=== PATIENT | male | born 1955 | race African-American/Black ===

== ENCOUNTER 2016-09-29 07:17 | Observation (INO) | payer OTHER ==
[~2016-09-29] VITALS: Ht 172.7 cm; Wt 104.3 kg
[2016-09-29] VITALS (7 sets, daily range): BP systolic 105–134; BP diastolic 56–75
[2016-09-29] MEDS ORDERED: Albuterol ud Inhalation ONE (07:18)
[2016-09-29] MEDS ORDERED: Ipratropium 0.02% Inh Soln 2.5ml UD HHN ONE (07:30)
[2016-09-29] MEDS ORDERED: Solu-MEDROL 125mg Inj IVP ONE (07:30)
[2016-09-29] MEDS ORDERED: Albuterol ud Inhalation HHN ONE (07:30)
[2016-09-29 07:45] LABS: BASOPHILS % (AUTO) 2.6 % (0.0-2.0); LYMPHOCYTES % (AUTO) 7.2 % (20.0-45.0); MEAN CORPUSCULAR HEMOGLOBIN 28.6 PG (27.0-31.0); MEAN CORPUSCULAR HGB CONC 31.6 G/DL (32.0-36.0); MEAN CORPUSCULAR VOLUME 90 FL (80-99); MEAN PLATELET VOLUME 5.9 FL (6.5-10.1); MONOCYTES % (AUTO) 5.8 % (1.0-10.0); NEUTROPHILS % (AUTO) 83.5 % (45.0-75.0); PLATELET COUNT 306 K/UL (150-450); RED BLOOD COUNT 4.22 M/UL (4.70-6.10); WHITE BLOOD COUNT 13.1 K/UL (4.8-10.8)
[2016-09-29] MEDS ORDERED: CARDIZEM30 M1 PO (07:49)
[2016-09-29] MEDS ORDERED: ZOFRAN4 M3 ORAL (07:49)
[2016-09-29] MEDS ORDERED: GUAIFENESI100 MG/5 M ORAL (07:49)
[2016-09-29] MEDS ORDERED: ACETAMINOP500 MG/51 ORAL (07:49)
[2016-09-29] MEDS ORDERED: FUROSEMIDE40 MG ORAL (07:49)
[2016-09-29] MEDS ORDERED: BUDESONIDE0.5 GM PO (07:49)
[2016-09-29] MEDS ORDERED: DUONEB 0.5-3(2.53 ML HHN (07:49)
[2016-09-29] MEDS ORDERED: LOVENOX10 MG SUBQ (07:49)
[2016-09-29] MEDS ORDERED: LEVAQUIN500 MG ORAL (07:49)
[2016-09-29] MEDS ORDERED: NORCO1 E1 ORAL (07:49)
[2016-09-29] MEDS ORDERED: CATAPRES0.1 MG ORAL (07:49)
[2016-09-29] MEDS ORDERED: PREDNISONE20 MG ORAL (07:49)
[2016-09-29 08:00] LABS: ALANINE AMINOTRANSFERASE 13 U/L (3-41); ALBUMIN/GLOBULIN RATIO 1.9 (1.0-2.7); ANION GAP 9 (5-15); ASPARTATE AMINO TRANSFERASE 15 U/L (5-40); CALCIUM 9.7 mg/dL (8.6-10.2); CARBON DIOXIDE 36 mEQ/L (20-30); CHLORIDE 99 mEQ/L (98-107); CREATININE 0.8 mg/dL (0.7-1.2); GLOMERULAR FILTRATION RATE > 60 mL/min (>60); HEMOLYSIS 3; POTASSIUM 5.1 mEQ/L (3.4-4.9); SODIUM 144 mEQ/L (135-145); TOTAL PROTEIN 6.4 g/dL (6.6-8.7)
[2016-09-29 08:03] LABS: TROPONIN I < 0.30 ng/mL (<=0.30)
--- NOTE | 2016-09-29 08:34 | Emergency Room Report ---
History of Present Illness General Chief Complaint: Dyspnea/Respdistress Source: EMS Present Illness HPI 61-year-old male presents to ED for evaluation of shortness of breath. States symptoms started a few hours prior to arrival. Patient was just checked into [facility] yesterday after being discharged with symptoms no hospital for treatment of COPD/CHF. Patient states he did smoke a cigarette last night. Upon arrival EMS stated that patient was very short of breath, chest tightness, hypertensive. Patient was given nitroglycerin, started on breathing treatments. Patient denies any fevers or chills. Denies chest pain. Denies nausea or vomiting. No other aggravating or relieving factors. Denies any other associated symptoms Allergies: Coded Allergies: LISINOPRIL (Verified Allergy, Unknown, 09/29/16) Patient History Past Medical History: none Past Surgical History: none Pertinent Family History: none Social History: Denies: alcohol use, drug use, smoking Immunizations: UTD Reviewed Nursing Documentation: PMH: Agreed, PSxH: Agreed Nursing Documentation-PMH Hx Cardiac Problems: Yes - CHF Hx Hypertension: Yes Hx Asthma: Yes Hx COPD: Yes Review of Systems All Other Systems: negative except mentioned in HPI Physical Exam Vital Signs Date Time Temp Pulse Resp B/P Pulse Ox O2 Delivery O2 Flow Rate FiO2 09/29/16 07:13 97.9 144 28 100 Non-Rebreather 09/29/16 07:20 15.0 09/29/16 07:36 105/56 100 Sp02 EP Interpretation: reviewed, normal General Appearance: no apparent distress, alert, GCS 15, non-toxic, obese Head: normocephalic, atraumatic Eyes: bilateral eye PERRL, bilateral eye normal inspection ENT: hearing grossly normal, normal pharynx, no angioedema, normal voice Neck: full range of motion, supple/symm/no masses Respiratory: chest non-tender, normal breath sounds, decreased breath sounds, crackles, speaking full sentences, wheezing Cardiovascular #1: no edema, tachycardia Cardiovascular #2: 2+ carotid (R), 2+ carotid (L), 2+ radial (R), 2+ radial (L) , 2+ dorsalis pedis (R), 2+ dorsalis pedis (L) Gastrointestinal: normal bowel sounds, non tender, soft, non-distended, no guarding, no rebound Rectal: deferred Genitourinary: normal inspection, no CVA tenderness Musculoskeletal: back normal, gait/station normal, normal range of motion, non- tender Neurologic: alert, oriented x3, responsive, motor strength/tone normal, sensory intact, speech normal Psychiatric: judgement/insight normal, memory normal, mood/affect normal, no suicidal/homicidal ideation Reflexes: 3+ bicep (R), 3+ bicep (L), 3+ tricep (R), 3+ tricep (L), 3+ knee (R) , 3+ knee (L) Skin: normal color, no rash, warm/dry, well hydrated Lymphatic: no adenopathy Procedures Critical Care Time Critical Care Time i. I feel this is a highly complex case requiring extensive working including EKG/Rhythm strip, Xray/CT/US, Blood/urine lab work, repeat exams while in ED, and administration of strong opiates/narcotics for pain control, admission to hospital or close patient follow up. Total time: 30 min bedside evaluation and treatment excludes procedures (EKG). Reason for critical care: Respiratory distress, hypoxic, tachycardic, hypertensive Possible complications: hypotension, hypertension, GA, shock, arrhythmias, metabolic acidosis, end organ damage, respiratory failure. Interventions: BiPAP, nebs, Solu-Medrol, EKG, chest x-ray, abx Course: Patient brought in for respiratory distress. History of CHF and COPD. Started on BiPAP and nebulizer treatment. Given Solu-Medrol. Labs show leukocytosis. Troponins negative. Chest x-ray shows atelectasis bilateral effusions. Improving on BiPAP. Antibiotics given. Consultations: nursing staff, EMS, family Performed by: Dr Brown Tolerated well condition = critical j. because of unstable vital signs this patient had a condition that could potentially threaten life or limb. I feel this is a critical patient who required my full attention while patient was considered critical. Total Critical Care Time excluding procedures was greater than 35 minutes Medical Decision Making Diagnostic Impression: Primary Impression: CHF exacerbation Qualified Codes: I50.9 - Heart failure, unspecified Additional Impression: COPD exacerbation ER Course Hospital Course 61-year-old M presenting to ED with SOB. h/o COPD Differential diagnoses include: Pneumonia, CHF exacerbation, pneumothorax, fluid overload Clinical course Patient placed on stretcher. On cafeteria monitor with stable vitals. After initial history and physical, I ordered nebulizer treatments, BIPAP. I ordered labs, IV fluids, EKG, chest x-ray, blood cultures, UA. Labs - noted leukocytosis, hemoglobin/hematocrit stable, electrolytes okay, lactate okay, troponins negative CXR -cardiomegaly. atelectasis/effusion ABG shows PCO2 in the 60s. We attempted to wean patient of BiPAP patient was not able to tolerate. Patient will remain on BiPAP abx given. per insurance patient admits to [facility], but Dr Ramirez is covering for Dr Flowers. Case discussed with Dr. Ramirez and he agreed to the patient to his service for further care and support I feel this is a highly complex case requiring extensive working including EKG/ Rhythm strip, Xray/CT/US, Blood/urine lab work, repeat exams while in ED, and administration of strong opiates/narcotics for pain control, admission to hospital or close patient follow up. Diagnosis - COPD exacerbation, CHF exacerbation Patient admitted to [facility] in serious condition Labs Test 09/29/16 07:25 White Blood Count 13.1 K/UL (4.8-10.8) Red Blood Count 4.22 M/UL (4.70-6.10) Hemoglobin 12.1 G/DL (14.2-18.0) Hematocrit 38.2 % (42.0-52.0) Mean Corpuscular Volume 90 FL (80-99) Mean Corpuscular Hemoglobin 28.6 PG (27.0-31.0) Mean Corpuscular Hemoglobin Concent 31.6 G/DL (32.0-36.0) Red Cell Distribution Width 15.0 % (11.6-14.8) Platelet Count 306 K/UL (150-450) Mean Platelet Volume 5.9 FL (6.5-10.1) Neutrophils (%) (Auto) 83.5 % (45.0-75.0) Lymphocytes (%) (Auto) 7.2 % (20.0-45.0) Monocytes (%) (Auto) 5.8 % (1.0-10.0) Eosinophils (%) (Auto) 1.0 % (0.0-3.0) Basophils (%) (Auto) 2.6 % (0.0-2.0) Sodium Level 144 mEQ/L (135-145) Potassium Level 5.1 mEQ/L (3.4-4.9) Chloride Level 99 mEQ/L (98-107) Carbon Dioxide Level 36 mEQ/L (20-30) Anion Gap 9 (5-15) Blood Urea Nitrogen 13 mg/dL (7-23) Creatinine 0.8 mg/dL (0.7-1.2) Estimat Glomerular Filtration Rate > 60 mL/min (>60) Glucose Level 161 mg/dL (74-106) Lactic Acid Level 1.00 mmol/L (0.66-2.22) Calcium Level 9.7 mg/dL (8.6-10.2) Total Bilirubin 0.4 mg/dL (0.0-1.2) Aspartate Amino Transf (AST/SGOT) 15 U/L (5-40) Alanine Aminotransferase (ALT/SGPT) 13 U/L (3-41) Alkaline Phosphatase 73 U/L (40-129) Total Creatine Kinase 80 U/L (38-174) Creatine Kinase MB 3.0 ng/mL (< 6.7) Creatine Kinase MB Relative Index 3.7 Troponin I < 0.30 ng/mL (<=0.30) Pro-B-Type Natriuretic Peptide 117 pg/mL (0-125) Total Protein 6.4 g/dL (6.6-8.7) Albumin 4.2 g/dL (3.5-5.2) Globulin 2.2 g/dL Albumin/Globulin Ratio 1.9 (1.0-2.7) EKG Diagnostic Results Rate: tachycardiac Rhythm: NSR ST Segments: no acute changes ASA given to the pt in ED: No Rhythm Strip Diag. Results EP Interpretation: yes Rhythm: NSR, no PVC's, no ectopy Chest X-Ray Diagnostic Results EP Interpretation: Yes Findings: no pneumothorax, no acute cardiopulmonary disease, other - cardiomegaly. effusion,atelectasis b/l Lower lung cazares Number of Views: 1 Last Vital Signs Date Time Temp Pulse Resp B/P Pulse Ox O2 Delivery O2 Flow Rate FiO2 09/29/16 07:36 129 23 Bi-pap 100 09/29/16 07:36 105/56 95 09/29/16 07:20 15.0 09/29/16 07:13 97.9 Status: improved Disposition: ADMITTED INPATIENT Condition: Serious Referrals: [facility],REFERRING (PCP) VAIBHAV BROWN M.D. Sep 29, 2016 08:33
[2016-09-29] MEDS ORDERED: Lidocaine HCl 2% Jelly 5ml Tube TOPIC ONE (08:45)
[2016-09-29 09:11] LABS: ABG ALLEN TEST POSITIVE; ABG PCO2 60.1 mmHg (35.0-45.0)
[2016-09-29 09:52] LABS: APPEARANCE,URINE CLEAR; KETONES,URINE 1+ (NEGATIVE); LEUKOCYTE ESTERASE ,URINE 1+ (NEGATIVE); NITRITE,URINE NEGATIVE (NEGATIVE); PH,URINE 7 (4.5-8.0); PROTEIN,URINE 1+ (NEGATIVE); UROBILINOGEN,URINE NORMAL MG/DL (0.0-1.0)
[2016-09-29] MEDS: Albuterol ud Inhalation HHN SCH ×3 (10:04→11:15)
[2016-09-29] MEDS: Ipratropium 0.02% Inh Soln 2.5ml UD HHN SCH ×3 (10:04→11:15)
[2016-09-29 10:13] LABS: BACTERIA,URINE FEW /HPF; MUCUS,URINE FEW /LPF (NONE/OCC); RBC,URINE 0-2 /HPF (0 - 0); SQUAMOUS EPITHELIAL CELL,UR OCCASIONAL /LPF (NONE/OCC)
[2016-09-29] MEDS ORDERED: DuoNeb 0.5-3(2.5)mg/3ml neb HHN PRN ×2 (13:30→21:30)
[2016-09-29] MEDS ORDERED: Docusate 100mg cap ORAL PRN (13:30)
--- NOTE | 2016-09-29 13:39 | Consultation ---
Consult Note Assessment/Plan DICT # [id number] IONA CAMARENA M.D. Sep 29, 2016 13:39
[2016-09-29 15:37] LABS: TROPONIN I < 0.30 ng/mL (<=0.30)
[2016-09-29] MEDS ORDERED: Furosemide 40mg tab ORAL SCH (18:00)
[2016-09-29] MEDS ORDERED: DuoNeb 0.5-3(2.5)mg/3ml neb HHN SCH (19:00)
[2016-09-29] MEDS: DuoNeb 0.5-3(2.5)mg/3ml neb HHN SCH (19:00)
[2016-09-29] MEDS: Norco 5mg/325mg tab ORAL PRN (20:28)
[2016-09-29] MEDS: Enoxaparin 30mg Inj SUBQ SCH ×2 (21:00→22:18)
[2016-09-29] MEDS ORDERED: Enoxaparin 30mg Inj SUBQ SCH (21:00)
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
[2016-09-29] MEDS: Budesonide HHN 0.25mg/2ml ud HHN SCH (22:00)
[2016-09-29] MEDS ORDERED: Budesonide HHN 0.25mg/2ml ud HHN SCH (22:00)
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
[2016-09-30] VITALS: BP 139/68
[2016-09-30] MEDS: Norco 5mg/325mg tab ORAL PRN ×4 (00:29→13:12)
[2016-09-30] MEDS: DuoNeb 0.5-3(2.5)mg/3ml neb HHN SCH ×4 (01:44→19:53)
[2016-09-30 04:00] VITALS: BP 122/69
[2016-09-30 08:19] LABS: BASOPHILS % (AUTO) 0.7 % (0.0-2.0); LYMPHOCYTES % (AUTO) 6.4 % (20.0-45.0); MEAN CORPUSCULAR HEMOGLOBIN 28.3 PG (27.0-31.0); MEAN CORPUSCULAR HGB CONC 33.3 G/DL (32.0-36.0); MEAN CORPUSCULAR VOLUME 85 FL (80-99); MEAN PLATELET VOLUME 5.8 FL (6.5-10.1); MONOCYTES % (AUTO) 8.8 % (1.0-10.0); NEUTROPHILS % (AUTO) 84.2 % (45.0-75.0); PLATELET COUNT 269 K/UL (150-450); RED BLOOD COUNT 3.94 M/UL (4.70-6.10); RED CELL DISTRIBUTION WIDTH 14.5 % (11.6-14.8); WHITE BLOOD COUNT 11.5 K/UL (4.8-10.8)
[2016-09-30 08:33] LABS: ANION GAP 13 (5-15); CALCIUM 9.7 mg/dL (8.6-10.2); CARBON DIOXIDE 31 mEQ/L (20-30); CHLORIDE 97 mEQ/L (98-107); CREATININE 0.9 mg/dL (0.7-1.2); GLOMERULAR FILTRATION RATE > 60 mL/min (>60); HEMOLYSIS 3; POTASSIUM 4.1 mEQ/L (3.4-4.9); SODIUM 141 mEQ/L (135-145)
[2016-09-30] MEDS: Furosemide 40mg tab ORAL SCH ×2 (08:34→18:00)
[2016-09-30] MEDS: Enoxaparin 30mg Inj SUBQ SCH (08:35)
[2016-09-30 08:41] VITALS: BP 125/64
[2016-09-30] MEDS ORDERED: PredniSONE 20mg tab ORAL SCH ×2 (09:00)
[2016-09-30] MEDS ORDERED: Docusate 100mg cap ORAL PRN (09:00)
[2016-09-30] MEDS ORDERED: Furosemide 40mg tab ORAL SCH (09:00)
[2016-09-30 12:53] VITALS: BP 129/76
[2016-09-30] MEDS: Budesonide HHN 0.25mg/2ml ud HHN SCH ×2 (13:37→20:06)
[2016-09-30 16:00] VITALS: BP 121/76
--- NOTE | 2016-09-30 19:06 | Pulmonology Progress Note ---
Assessment/Plan Problems: (1) Tobacco abuse (2) Morbid obesity (3) MARTINA on CPAP (4) COPD exacerbation (5) CHF exacerbation Assessment/Plan ASSESSMENT: The patient is a 61-year-old obese male with a history of tobacco abuse, chronic obstructive pulmonary disease, congestive heart failure, obstructive sleep apnea, noncompliant with CPAP, and hypertension, presenting from care home with shortness of breath one day after being discharged from an outside hospital likely secondary to the repeat exacerbation of his underlying obstructive lung disease. He does have a history of congestive heart failure, but clinically does not appear to be in failure at this time. PROBLEM LIST: 1. Chronic obstructive pulmonary disease with acute exacerbation. 2. Congestive heart failure without evidence of decompensated heart failure. 3. Pulmonary HTN, ? 2/2 L sided DD, MARTINA and ? VTE 4. Obstructive sleep apnea, noncompliant with CPAP. 5. Continued tobacco use. 6. Hypertension. 7. Questionable recent history of video-assisted thoracoscopic surgery versus mediastinoscopy at an outside hospital for evaluation of abnormal lymph node; per patient, workup was negative. 8. Elevated D-dimer TREATMENT PLAN: 1. Optimize pulmonary hygiene and mobilize as tolerated. 2. Continue rueka-iog-lbqki and p.r.n. DuoNebs. 3. Prednisone 60 mg p.o. daily (D2/5). 4. Levaquin IV (D2), can D/C on PO to complete 7 day course. 5. Follow up sputum culture and respiratory panel. 6. BiPAP at bedtime and p.r.n. 7. Monitor volumes; continue p.o. Lasix for now. 8. Patient declines Duplex and VQ, he is already on treatment dose of A/C but is unsure whether he had a PE/DVT before 9.D/W PMD, will get Duplex at [facility] 10. Heparin subcutaneous. 11. Aspiration precautions. Subjective Allergies: Coded Allergies: LISINOPRIL (Verified Allergy, Unknown, 09/29/16) Subjective AFVSS, stable on 2L O2 SOB at baseline, no cough, no wheezing, no F/C, no CP, no hemoptysis, has been OOB Objective Last 24 Hour Vital Signs Date Time Temp Pulse Resp B/P Pulse Ox O2 Delivery O2 Flow Rate FiO2 09/30/16 18:00 77 121/76 09/30/16 16:00 97.2 77 21 121/76 98 Nasal Cannula 2.0 09/30/16 13:49 96 20 99 Nasal Cannula 28 09/30/16 13:38 28 09/30/16 13:38 70 16 100 Nasal Cannula 2.0 28 09/30/16 12:53 97.0 75 18 129/76 98 Nasal Cannula 3.0 09/30/16 12:00 97 09/30/16 11:29 75 129/76 09/30/16 08:41 97.5 77 18 125/64 99 Bi-pap 09/30/16 08:00 72 09/30/16 07:59 95 18 99 Nasal Cannula 28 09/30/16 07:50 100 Nasal Cannula 2.0 28 09/30/16 07:50 Nasal Cannula 2.0 28 09/30/16 07:50 28 09/30/16 07:50 70 16 100 Nasal Cannula 2.0 28 09/30/16 05:33 73 128/66 09/30/16 04:00 97.0 88 20 122/69 96 Nasal Cannula 2.0 09/30/16 04:00 88 09/30/16 03:29 89 22 97 Facial 35 09/30/16 01:30 97 18 99 Bi-pap 35 09/30/16 01:20 35 09/30/16 01:20 85 18 97 Bi-pap 35 09/30/16 01:20 85 18 98 Facial 35 09/30/16 00:00 85 09/30/16 00:00 97.7 85 16 139/68 96 Bi-pap 09/29/16 23:49 85 139/68 09/29/16 20:00 102 09/29/16 20:00 96.9 97 17 106/65 97 Room Air 09/29/16 19:00 98 Nasal Cannula 2.0 28 09/29/16 19:00 Nasal Cannula 09/29/16 19:00 92 18 98 Nasal Cannula 2.0 28 09/29/16 19:00 Nasal Cannula 2.0 28 Intake and Output 09/29/16 09/30/16 19:00 07:00 Intake Total 1150 ml 600 ml Output Total 200 ml 1000 ml Balance 950 ml -400 ml Intake Oral 500 ml 600 ml IV Total 650 ml Output Urine Total 200 ml 1000 ml # Voids 3 General Appearance: no acute distress, other - morbidly obese male HEENT: normocephalic, atraumatic, mucous membranes moist, other - MP4 Respiratory/Chest: lungs clear - but distant and decreased @ bases, no respiratory distress, no accessory muscle use Cardiovascular: normal peripheral pulses, normal rate, regular rhythm Abdomen: normal bowel sounds, soft, non tender, no organomegaly, non distended Extremities: no cyanosis, no clubbing, other - trace edema Microbiology Date/Time Source Procedure Growth Status 09/29/16 16:50 Sputum Induced Gram Stain - Final Resulted 09/29/16 16:50 Sputum Induced Sputum Culture Pending Resulted Laboratory Tests 09/30/16 07:25: White Blood Count 11.5H, Red Blood Count 3.94L, Hemoglobin 11.2L, Hematocrit 33.5L, Mean Corpuscular Volume 85, Mean Corpuscular Hemoglobin 28.3, Mean Corpuscular Hemoglobin Concent 33.3, Red Cell Distribution Width 14.5, Platelet Count 269, Mean Platelet Volume 5.8L, Neutrophils (%) (Auto) 84.2H, Lymphocytes (%) (Auto) 6.4L, Monocytes (%) (Auto) 8.8, Eosinophils (%) (Auto) 0.0, Basophils (%) (Auto) 0.7, Sodium Level 141, Potassium Level 4.1, Chloride Level 97L, Carbon Dioxide Level 31H, Anion Gap 13, Blood Urea Nitrogen 15, Creatinine 0.9, Estimat Glomerular Filtration Rate > 60, Glucose Level 171H, Calcium Level 9.7 Current Medications Medications (Trade) Dose Ordered Sig/Pascale Route PRN Reason Start Time Stop Time Status Last Admin Dose Admin Acetaminophen (Tylenol) 650 mg Q4H PRN ORAL Mild Pain/Temp > 100.5 09/29/16 21:30 10/29/16 21:29 Acetaminophen/ Hydrocodone Bitart ([place] 5/325) 1 tab Q4H PRN ORAL Moderate Pain (Pain Scale 4-6) 09/29/16 20:15 10/06/16 20:14 09/30/16 13:12 Albuterol/ Ipratropium (DuoNeb 0.5-3(2.5)mg/3ml) 3 ml Q4H PRN HHN Shortness of Breath 09/29/16 21:30 10/04/16 21:29 Albuterol/ Ipratropium (DuoNeb 0.5-3(2.5)mg/3ml) 3 ml Q6HRT HHN 09/29/16 19:00 10/04/16 18:59 09/30/16 13:37 Budesonide (Pulmicort) 0.25 mg Q12HRT HHN 09/29/16 22:00 10/29/16 21:59 09/30/16 13:37 Clonidine HCl (Catapres) 0.1 mg Q4H PRN ORAL SBP>160 09/29/16 21:30 10/29/16 21:29 Diltiazem HCl (Cardizem) 30 mg EVERY 6 HOURS ORAL 09/30/16 00:00 10/30/16 00:00 09/30/16 18:00 Docusate Sodium (Colace) 100 mg TID PRN ORAL Constipation 09/30/16 09:00 10/30/16 08:59 Enoxaparin Sodium (Lovenox) 30 mg EVERY 12 HOURS SUBQ 09/29/16 21:00 10/29/16 20:59 Furosemide (Lasix) 40 mg BID ORAL 09/30/16 09:00 10/30/16 08:59 09/30/16 18:00 Levofloxacin (Levaquin 750mg/ D5W) 150 ml @ 100 mls/hr Q24H IVPB 09/30/16 08:00 10/07/16 07:59 09/30/16 08:00 Ondansetron HCl (Zofran) 4 mg Q6H PRN IVP Nausea & Vomiting 09/29/16 19:30 10/29/16 19:29 Prednisone (predniSONE) 60 mg DAILY ORAL 09/30/16 09:00 10/30/16 08:59 09/30/16 08:34 IONA CAMARENA M.D. Sep 30, 2016 19:06
[2016-09-30] MEDS ORDERED: FUROSEMIDE40 MG ORAL (19:08)
[2016-09-30] MEDS ORDERED: VENTOLIN HFA18 GM INH (19:08)
[2016-09-30] MEDS ORDERED: XARELTO20 MG ORAL (19:10)
[2016-09-30 20:00] VITALS: BP 138/81
--- NOTE | 2016-09-30 20:27 | Cardiology Report ---
APPROVED REPORT EKG Measurement Heart [id number] Sinus tachycardia Rightward axis Septal infarct, age undetermined Abnormal ECG
--- NOTE | 2016-09-30 20:43 | Cardiology Report ---
APPROVED REPORT EXAM: Two-dimensional and M-mode echocardiogram with Doppler and color Doppler. INDICATION Atrial Fibrillation M-Mode DIMENSIONS IVSd0.7 (0.7-1.1cm)Left Atrium (MM)4.8 (1.6-4.0cm) LVDd4.5 (3.5-5.6cm)Aortic Root2.8 (2.0-3.7cm) PWd0.7 (0.7-1.1cm)Aortic Cusp Exc.1.9 (1.5-2.0cm) LVDs2.8 (2.5-4.0cm) Technically difficult study due to poor acoustic windows. Normal left ventricular chamber size, systolic function and wall motion. Left ventricular ejection fraction estimated to be 55-60%. No evidence of left ventricular hypertrophy. No evidence of pericardial fat or effusion. Right cardiac chamber sizes are within normal limits. Moderate left atrial enlargement by 2D. Focal aortic valve sclerosis with adequate cusp excursion Thickened mitral valve leaflets with normal excursion. Mild mitral annulus and aortic root calcification. Pulmonic valve not well visualized. Normal tricuspid valve structure. IVC dilated at 3.0cm with no physiologic collapse. RA pressure of 20mmHg. A color flow and spectral Doppler study was performed and revealed: No aortic regurgitation. Mild mitral regurgitation. Left ventricular diastolic dysfunction grade 1. Mild tricuspid regurgitation. Tricuspid systolic velocities suggests peak right ventricular systolic pressure of 54 mmHg Consistent with severe pulmonary hypertension.
--- NOTE | 2016-10-01 15:58 | Discharge Summary ---
DATE OF ADMISSION: 09/29/2016 DATE OF DISCHARGE: 09/30/2016 PERTINENT HISTORY: The patient admitted with shortness of breath, history of COPD, diastolic congestive heart failure, recurrent hospitalization, hypotension, and obesity. PERTINENT PHYSICAL FINDINGS: GENERAL: The patient is alert, in no distress at time my exam. LUNGS: Decreased breath sounds. HEART: Regular rhythm. ABDOMEN: Soft. EXTREMITIES: Trace edema. COURSE IN THE HOSPITAL: The patient was diuresed for CHF, treated with steroids and nebulizer treatment. He had severe pulmonary hypertension. He was continued on anticoagulants, but refused Lovenox. It is presumed he had DVT prior to this and this was discussed with the patient who agreed to take Xarelto in the outpatient setting. The patient on day of discharge had no respiratory distress. His oxygen saturation on two liters was normal. Lungs were clear. Heart, regular rhythm. Extremities, trace edema and he was discharged back to his nursing home home in stable condition. FINAL DIAGNOSES: 1. Chronic obstructive pulmonary disease with acute exacerbation. 2. Acute bronchitis. 3. Congestive heart failure, diastolic acute exacerbation. 4. History of sleep apnea. 5. History of hypertension. 6. Pulmonary hypertension. 7. Obesity. 8. History of homeless situation. DISCHARGE DISPOSITION: He is discharged back to his ECF on a no-added salt diet. DISCHARGE MEDICATIONS: Per the discharge medication list. FOLLOWUP: Follow up by his primary care physician at that facility. Allan Saini M.D. DR: ROMEO JOB#: [id number] CC:
--- NOTE | 2016-10-02 08:29 | Diagnostic Imaging Report ---
Indication: Dyspnea Comparison: None A single view chest radiograph was obtained. Findings: Cardiomediastinal appearance is within normal limits for age. Pulmonary vascularity is appropriate. The diaphragmatic contour is smooth and costophrenic angles are sharp. No pleural effusions are identified. The bones are unremarkable. Impression: No acute findings
== END 2016-09-30 21:23 ==
LOC: EDBD 07:17 → EMR 07:29 → INTOOBSV 10:22 → 2W 10:22 → EDBEDREQ 11:17 → 2E 19:04
DX: J44.0 Chronic obstructive pulmonary disease with (acute) lower respiratory infection (principal); J20.9 Acute bronchitis, unspecified; J44.1 Chronic obstructive pulmonary disease with (acute) exacerbation; F17.210 Nicotine dependence, cigarettes, uncomplicated; I50.33 Acute on chronic diastolic (congestive) heart failure; G47.33 Obstructive sleep apnea (adult) (pediatric); I10 Essential (primary) hypertension; I27.2 Other secondary pulmonary hypertension; E66.9 Obesity, unspecified; Z59.0 Homelessness; Z91.09 Other allergy status, other than to drugs and biological substances
CPT/HCPCS: 36415 ×2; 36600; 71010; 80048; 80053; 81003; 82550; 82553; 82803; 82962; 83605; 83880; 84484; 85025 ×2; 85379; 87040; 87070; 87081 ×2; 87205; 93005; 93306; 94640 ×2; 94660; 94760 ×2; 99291; G0378 ×2; J1650; J1956 ×2; J2930; J7040; J7620

== ENCOUNTER 2018-10-17 01:12 | Inpatient (IN) | payer MEDICARE, OTHER ==
[~2018-10-17] VITALS: Ht 170.2 cm; Wt 80.7 kg
[2018-10-17 01:12] VITALS: BP 135/75
[~2018-10-17 01:12] MED LIST: ACETAMINOP500 MG/51 ORAL; BUDESONIDE0.5 GM PO; CARDIZEM30 M1 PO; CATAPRES0.1 MG ORAL; DUONEB 0.5-3(2.53 ML HHN; FUROSEMIDE40 MG ORAL; GUAIFENESI100 MG/5 M ORAL; LEVAQUIN500 MG ORAL; LOVENOX10 MG SUBQ; NORCO1 E1 ORAL; PREDNISONE20 MG ORAL; VENTOLIN HFA18 GM INH; XARELTO20 MG ORAL; ZOFRAN4 M3 ORAL
[2018-10-17] MEDS ORDERED: Solu-MEDROL 125mg Inj IVP ONE (01:45)
[2018-10-17] MEDS ORDERED: Ipratropium 0.02% Inh Soln 2.5ml UD HHN ONE (01:45)
[2018-10-17] MEDS ORDERED: Albuterol ud Inhalation HHN ONE (01:45)
[2018-10-17 01:52] LABS: BASOPHILS % (AUTO) 1.1 % (0.0-2.0); EOSINOPHILS % (AUTO) 0.5 % (0.0-3.0); HEMATOCRIT 32.8 % (42.0-52.0); HEMOGLOBIN 10.7 G/DL (14.2-18.0); LYMPHOCYTES % (AUTO) 9.2 % (20.0-45.0); MEAN CORPUSCULAR VOLUME 85 FL (80-99); MONOCYTES % (AUTO) 9.9 % (1.0-10.0); NEUTROPHILS % (AUTO) 79.3 % (45.0-75.0); PLATELET COUNT 267 K/UL (150-450); RED BLOOD COUNT 3.88 M/UL (4.70-6.10); RED CELL DISTRIBUTION WIDTH 14.7 % (11.6-14.8); WHITE BLOOD COUNT 10.1 K/UL (4.8-10.8)
[2018-10-17 02:06] LABS: ANION GAP 6 mmol/L (5-15); BLOOD UREA NITROGEN 23 mg/dL (7-18); CALCIUM 8.8 MG/DL (8.5-10.1); CARBON DIOXIDE 29 MMOL/L (21-32); CHLORIDE 104 MMOL/L (98-107); CREATININE 1.1 MG/DL (0.55-1.30); POTASSIUM 4.6 MMOL/L (3.5-5.1); SODIUM 139 MMOL/L (136-145)
[2018-10-17 02:20] LABS: ALANINE AMINOTRANSFERASE 27 U/L (12-78); ALBUMIN 3.2 G/DL (3.4-5.0); ALBUMIN/GLOBULIN RATIO 0.9 (1.0-2.7); ALKALINE PHOSPHATASE 87 U/L (46-116); ASPARTATE AMINO TRANSFERASE 31 U/L (15-37); BILIRUBIN,TOTAL 0.3 MG/DL (0.2-1.0); CKMB 1.3 NG/ML (0.0-3.6); CREATINE KINASE 95 U/L (26-308)
--- NOTE | 2018-10-17 02:39 | Emergency Room Report ---
History of Present Illness General Chief Complaint: Dyspnea/Respdistress Source: Patient, EMS Present Illness HPI This is a 63-year-old male with a history of COPD and CHF. Continue to smoke. He presents with chief complaint of increasing shortness of breath and respiratory distress. Onset for a week now. Worse in the last couple hours. He called 911 because he could not breathe. Per EMS he was hypoxic and was in rest or distress. He was given BiPAP and breathing treatment and sent here. Patient said he fell better with oxygen. Jose Manuel symptom in the past. No nausea no vomiting. No fever or chills. Cough is nonproductive in nature. A chest tightness secondary to respiratory problem. Allergies: Coded Allergies: LISINOPRIL (Verified Allergy, Unknown, 09/29/16) Patient History Past Medical History: see triage record, old chart reviewed, HTN, CHF, COPD Past Surgical History: none Pertinent Family History: none Social History: Reports: smoking Immunizations: other Reviewed Nursing Documentation: PMH: Agreed; PSxH: Agreed Nursing Documentation-PMH Hx Cardiac Problems: Yes - CHF Hx Hypertension: Yes Hx Asthma: Yes Hx COPD: Yes Hx Cancer: No Hx Gastrointestinal Problems: No Hx Neurological Problems: No Review of Systems Eye: Denies: eye pain, blurred vision ENT: Denies: ear pain, nose congestion, throat swelling Respiratory: Reports: cough, shortness of breath Cardiovascular: Denies: chest pain, palpitations Gastrointestinal: Denies: abdominal pain, diarrhea, nausea, vomiting Musculoskeletal: Denies: back pain, joint pain Skin: Denies: rash Neurological: Denies: headache, numbness Endocrine: Denies: increased thirst, increased urine Hematologic/Lymphatic: Denies: easy bruising All Other Systems: negative except mentioned in HPI Physical Exam Vital Signs Date Time Temp Pulse Resp B/P (MAP) Pulse Ox O2 Delivery O2 Flow Rate FiO2 10/17/18 01:05 98.4 112 22 152/83 100 Venturi Mask 10/17/18 01:40 40 vitals with tachycardia Sp02 EP Interpretation: reviewed, normal General Appearance: well appearing, alert, moderate distress Head: normocephalic, atraumatic Eyes: bilateral eye PERRL, bilateral eye EOMI ENT: hearing grossly normal, normal pharynx Neck: full range of motion, supple, no meningismus Respiratory: chest non-tender, respiratory distress, decreased breath sounds, accessory muscle use, rhonchi, wheezing Cardiovascular #1: regular rate, rhythm, no murmur Gastrointestinal: normal bowel sounds, non tender, no mass, no organomegaly, no bruit, non-distended Musculoskeletal: back normal, gait/station normal, normal range of motion Psychiatric: mood/affect normal Skin: warm/dry Procedures Critical Care Time Critical Care Time Critical care is mandated in this patient who presented with acute on chronic respiratory failure due to copd. Patient require my urgent intervention to attenuate the risks of respiratory collapse which may lead to cardiovascular collapse and . Critical care time is 35 minutes excluding any reportable procedure. Critical care time included evaluation, multiple reevaluation, looking at old charts, interpreting laboratory and diagnostic data, discussing case with patient and family and consultants, and charting. Medical Decision Making Diagnostic Impression: Primary Impression: Acute on chronic respiratory failure with hypoxia Additional Impressions: COPD with exacerbation Anemia Qualified Codes: D64.9 - Anemia, unspecified Proteinuria, unspecified Qualified Codes: R80.9 - Proteinuria, unspecified ER Course Patient with acute on chronic respiratory failure requiring BiPAP. He feels much more comfortable on BiPAP and after breathing treatment. No evidence of ACS, PE, dissection or pneumonia to name a few. We'll admit for further treatment. Patient has a history of chronic pain is currently taking morphine and Duragesic patch. I discussed case with Dr. Ayoub for admission. Lab Results Impression labs unremarkable. EKG Diagnostic Results Rate: tachycardiac Rhythm: NSR ST Segments: no acute changes Rhythm Strip Diag. Results Rhythm Strip Time: 02:38 EP Interpretation: yes Rate: 100 Rhythm: NSR, no PVC's, no ectopy Chest X-Ray Diagnostic Results Chest X-Ray Diagnostic Results : Chest X-Ray Ordered: Yes # of Views/Limited/Complete: 1 View Indication: Shortness of Breath EP Interpretation: Yes Interpretation: no consolidation, no effusion, no pneumothorax, no acute cardiopulmonary disease Impression: No acute disease Electronically Signed by: Karl Weiss MD Last Vital Signs Date Time Temp Pulse Resp B/P (MAP) Pulse Ox O2 Delivery O2 Flow Rate FiO2 10/17/18 01:48 113 23 99 Facial 40 10/17/18 01:05 98.4 152/83 Status: improved Disposition: ADMITTED INPATIENT Condition: Serious Karl Weiss MD Oct 17, 2018 02:39
[2018-10-17 02:57] LABS: APPEARANCE,URINE CLEAR; BILIRUBIN, URINE NEGATIVE (NEGATIVE); GLUCOSE, URINE (UA) NEGATIVE (NEGATIVE); KETONES,URINE 1+ (NEGATIVE); LEUKOCYTE ESTERASE ,URINE NEGATIVE (NEGATIVE); NITRITE,URINE NEGATIVE (NEGATIVE); PH,URINE 6 (4.5-8.0); PROTEIN,URINE 2+ (NEGATIVE); UROBILINOGEN,URINE NORMAL MG/DL (0.0-1.0)
[2018-10-17 03:01] LABS: COLOR,URINE YELLOW
[2018-10-17 06:20] VITALS: BP 131/89
[2018-10-17] MEDS ORDERED: SYMBICORT 80-10.2 G1 IH (07:58)
[2018-10-17] MEDS ORDERED: PROMETH-CODEIN 65 ML PO (07:58)
[2018-10-17] MEDS ORDERED: ATORVASTATIN CA20 MG ORAL (07:58)
[2018-10-17] MEDS ORDERED: AMLODIPINE BESY10 MG ORAL (07:58)
[2018-10-17] MEDS ORDERED: DILTIAZEM 24HR180 M1 ORAL (07:58)
[2018-10-17] MEDS ORDERED: FAMOTIDINE20 MG ORAL (07:58)
[2018-10-17] MEDS ORDERED: XANAX2 MG ORAL (07:58)
[2018-10-17] MEDS ORDERED: HYDRALAZINE HCL50 MG ORAL (07:58)
[2018-10-17 08:00] VITALS: BP 130/53
[2018-10-17] MEDS: Levofloxacin 500mg tab ORAL SCH (09:57)
[2018-10-17] MEDS: Solu-MEDROL 40mg Inj IVP SCH ×2 (09:57→18:03)
[2018-10-17] MEDS ORDERED: Enoxaparin 40mg Inj SUBQ SCH (10:00)
[2018-10-17] MEDS ORDERED: Furosemide 40mg tab ORAL SCH (10:00)
--- NOTE | 2018-10-17 11:31 | Diagnostic Imaging Report ---
Indication: Shortness of breath Technique: One view of the chest Comparison: 09/29/2016 Findings: Upper mediastinum and right lung apex are obscured by the patient's chin. The heart is borderline enlarged. No definite infiltrates, effusions, or congestion. Some scarring is seen in the left upper lung Impression: Borderline cardiomegaly No definite acute process
[2018-10-17 12:00] VITALS: BP 149/73
--- NOTE | 2018-10-17 13:15 | Consultation ---
DATE OF CONSULTATION: 10/17/2018 PULMONARY CONSULTATION CONSULTING PHYSICIAN: Ephraim Ayoub M.D. HISTORY OF PRESENT ILLNESS: This is a 63-year-old male, who came to the emergency room last night with complaints of shortness of breath. The patient has a history of COPD and he was admitted to the hospital after being placed on a BiPAP. His initial ABG is reviewed and it showed pH 7.35, pCO2 52, and pO2 176. At this time, the patient is no longer on BiPAP, but states he is feeling better. He is an active smoker. He also reported history of CHF. HOME MEDICATIONS: Reviewed and reconciled in the chart. ALLERGIES: None reported except lisinopril. PAST HISTORY: Hypertension, CHF, and COPD. SOCIAL HISTORY: He admits to tobacco use. Admits to occasional alcohol. REVIEW OF SYSTEMS: Denies any headaches, hematemesis, melena, hematochezia, or weight loss. PHYSICAL EXAMINATION: GENERAL: Reveals an elderly male. VITAL SIGNS: Blood pressure 120/50, heart rate 94, respirations 18, O2 saturation 98% on nasal oxygen. HEENT: Unremarkable. LUNGS: Clear breath sounds bilaterally. HEART: Normal heart sounds. ABDOMEN: Soft. NEUROLOGIC: Nonfocal. LABORATORY AND DIAGNOSTIC DATA: Lab testing is noncontributory except for ABG as discussed above. Hemoglobin 10.7. Coags are negative. Urine tox was positive for opiates. X-ray of the chest not available, per report is negative. IMPRESSION: 1. Exacerbation of COPD. 2. Opioid usage. 3. Active smoker. 4. CHF. DISCUSSION: Admitted to the hospital. We will wean off BiPAP. We will start steroids and empiric antibiotics. We will follow carefully as admin dir. Ephraim Ayoub M.D. DR: JAIME JOB#: [id number] CC:
--- NOTE | 2018-10-17 13:30 | History and Physical Report ---
DATE OF ADMISSION: 10/17/2018 REASON FOR ADMISSION: 1. COPD exacerbation. 2. Shortness of breath. HISTORY OF PRESENT ILLNESS: The patient is a 63-year-old gentleman, who presented overnight for the urgent care of increasing shortness of breath. The patient states that he continues to smoke approximately a pack to a pack and half a day. He had called 911 because he was having difficulty breathing. No nausea, vomiting, or diarrhea. No chest pain. No palpitations. The patient does admit to knowing that his smoking causes his shortness of breath. He is resting comfortably currently. No active chest pain and respiratory has improved overnight. ALLERGIES: Lisinopril. PAST MEDICAL HISTORY: 1. Hypertension. 2. CHF. 3. COPD. 4. Tobacco dependency. PAST SURGICAL HISTORY: None FAMILY HISTORY: Positive for hypertension. SOCIAL HISTORY: Positive for tobacco use. No alcohol or illicit drug use. REVIEW OF SYSTEMS: NEUROLOGIC: The patient denies headache, change in vision, syncope, or presyncopal episodes. CARDIOVASCULAR: No current chest pain, palpitations, or angina. PULMONARY: Mild shortness of breath. Nonproductive cough. GASTROINTESTINAL/GENITOURINARY: No changes in urinary or bowel habits. No nausea, vomiting, or diarrhea. ENDOCRINOLOGY: No night sweats, fevers, or chills. LABORATORY DATA: Laboratories dated October 17, 2018, sodium 139, potassium 4.6, creatinine 1.1. Troponin 0.016. Albumin 3.2. White cell count 10.1, hemoglobin 10.7. Toxicology screen positive for opioids. PHYSICAL EXAMINATION: VITAL SIGNS: Blood pressure 130/53, respiratory rate 22, pulse 94, temperature 97.8, and 99% oxygen saturation on 4 liters nasal cannula. GENERAL: The patient awake, somnolent, but arousable. HEENT: Extraocular muscles intact. No lymphadenopathy noted. Oropharyngeal mucosa is clear and dry. CARDIOVASCULAR: S1, S2. No rubs or gallops. PULMONARY: Mild diffuse expiratory wheezing with upper rhonchi. ABDOMEN: Nondistended and nontender. EXTREMITIES: A 2+ pitting edema. ASSESSMENT AND PLAN: 1. COPD exacerbation. At this time, we will initiate IV steroids along with daily Levaquin and albuterol treatment. Tobacco cessation counseling given. Pulmonary Critical Care consulted Dr. Ayoub. 2. Hypertension. We will continue Norvasc and diltiazem. 3. Hyperlipidemia. We will continue Lipitor. 4. DVT prophylaxis with Lovenox subcutaneous daily. Byron Hull MD DR: DOMINGO JOB#: [id number] CC:
[2018-10-17] MEDS: Albuterol/Ipratropium 3ml neb HHN SCH ×2 (14:02→19:32)
[2018-10-17] MEDS: dilTIAZem HCl 60mg tab ORAL SCH ×2 (14:10→21:29)
[2018-10-17 16:00] VITALS: BP 139/74
[2018-10-17 20:00] VITALS: BP_SYST 109; BP_SYST 118; BP_DIAS 64; BP_DIAS 84
[2018-10-17] MEDS: Furosemide 40mg tab ORAL SCH (20:37)
[2018-10-17] MEDS ORDERED: Atorvastatin 20mg tab ORAL SCH (21:00)
[2018-10-18] VITALS: BP 107/51
[2018-10-18] MEDS: Albuterol/Ipratropium 3ml neb HHN SCH ×3 (01:00→13:06)
[2018-10-18] MEDS: Solu-MEDROL 40mg Inj IVP SCH ×3 (01:58→18:17)
[2018-10-18 04:00] VITALS: BP 125/76
[2018-10-18] MEDS: dilTIAZem HCl 60mg tab ORAL SCH ×2 (05:35→14:14)
[2018-10-18 05:40] LABS: BASOPHILS % (AUTO) 0.3 % (0.0-2.0); HEMATOCRIT 33.3 % (42.0-52.0); HEMOGLOBIN 10.7 G/DL (14.2-18.0); LYMPHOCYTES % (AUTO) 13.3 % (20.0-45.0); MEAN CORPUSCULAR VOLUME 84 FL (80-99); MONOCYTES % (AUTO) 8.9 % (1.0-10.0); NEUTROPHILS % (AUTO) 77.5 % (45.0-75.0); PLATELET COUNT 248 K/UL (150-450); RED BLOOD COUNT 3.95 M/UL (4.70-6.10); RED CELL DISTRIBUTION WIDTH 14.5 % (11.6-14.8); WHITE BLOOD COUNT 4.2 K/UL (4.8-10.8)
[2018-10-18 06:33] LABS: ANION GAP 8 mmol/L (5-15); BLOOD UREA NITROGEN 19 mg/dL (7-18); CALCIUM 9.3 MG/DL (8.5-10.1); CARBON DIOXIDE 28 MMOL/L (21-32); CHLORIDE 100 MMOL/L (98-107); POTASSIUM 4.3 MMOL/L (3.5-5.1); SODIUM 136 MMOL/L (136-145)
[2018-10-18 08:00] VITALS: BP 130/72
--- NOTE | 2018-10-18 08:39 | Nephrology Progress Note ---
Assessment/Plan Assessment/Plan A/P 1) COPD Exacerbation- resolved. Breathing well and wheezing resolved - DC with limited prednisone and azithro 2) HTN- stable 3) Tob Dep- counselling given 4) HTN- stable DC today Subjective Date patient seen: Oct 18, 2018 Time patient seen: 08:35 ROS Limited/Unobtainable: No Allergies: Coded Allergies: LISINOPRIL (Verified Allergy, Unknown, 09/29/16) All Systems: reviewed and negative except above Subjective Patient breathing much improved. Back to baseline Objective Last 24 Hour Vital Signs Date Time Temp Pulse Resp B/P (MAP) Pulse Ox O2 Delivery O2 Flow Rate FiO2 10/18/18 08:05 72 14 100 Nasal Cannula 2.0 28 10/18/18 07:55 28 10/18/18 07:55 77 16 99 Nasal Cannula 2.0 28 10/18/18 05:35 79 135/69 10/18/18 04:00 2.0 10/18/18 04:00 Nasal Cannula 2.0 10/18/18 04:00 98.0 77 20 125/76 (92) 100 10/18/18 03:47 73 10/18/18 01:07 69 14 100 Nasal Cannula 2.0 28 10/18/18 01:01 72 16 99 Nasal Cannula 2.0 28 10/18/18 00:00 Nasal Cannula 2.0 10/18/18 00:00 98.0 72 20 107/51 (69) 98 10/18/18 00:00 2.0 10/17/18 23:22 74 10/17/18 21:29 76 118/64 10/17/18 20:00 Nasal Cannula 2.0 10/17/18 20:00 98.1 76 24 118/64 (82) 100 10/17/18 20:00 2.0 10/17/18 19:30 77 10/17/18 19:25 80 18 99 Room Air 21 10/17/18 19:15 73 18 97 Room Air 21 10/17/18 19:00 72 18 Room Air 21 10/17/18 16:00 97.9 94 23 139/74 (95) 100 10/17/18 16:00 4.0 10/17/18 16:00 Bi-pap 10/17/18 15:29 85 24 98 Facial 35 10/17/18 14:10 94 149/73 10/17/18 14:04 91 22 97 Facial 35 10/17/18 12:00 97.9 91 22 149/73 (98) 100 10/17/18 12:00 36 10/17/18 12:00 85 10/17/18 12:00 Bi-pap 10/17/18 11:05 88 20 99 Facial 35 10/17/18 09:57 86 130/53 Intake and Output 10/17/18 10/18/18 19:00 07:00 Intake Total 1150 ml 260 ml Output Total 600 ml 1200 ml Balance 550 ml -940 ml Intake Oral 1150 ml 260 ml Output Urine Total 600 ml 1200 ml Laboratory Tests 10/18/18 03:20: White Blood Count 4.2#L, Red Blood Count 3.95L, Hemoglobin 10.7L, Hematocrit 33.3L, Mean Corpuscular Volume 84, Mean Corpuscular Hemoglobin 27.1, Mean Corpuscular Hemoglobin Concent 32.2, Red Cell Distribution Width 14.5, Platelet Count 248, Mean Platelet Volume 5.8L, Neutrophils (%) (Auto) 77.5H, Lymphocytes (%) (Auto) 13.3L, Monocytes (%) (Auto) 8.9, Eosinophils (%) (Auto) 0.0, Basophils (%) (Auto) 0.3, Sodium Level 136, Potassium Level 4.3, Chloride Level 100, Carbon Dioxide Level 28, Anion Gap 8, Blood Urea Nitrogen 19H, Creatinine 1.0, Estimat Glomerular Filtration Rate > 60, Glucose Level 166H, Calcium Level 9.3 Height (Feet): 5 Height (Inches): 7.00 Weight (Pounds): 178 General Appearance: no apparent distress, alert EENT: normal ENT inspection Neck: normal alignment, supple Cardiovascular: normal rate, regular rhythm Respiratory/Chest: lungs clear, normal breath sounds Abdomen: non tender, soft Edema: no edema noted Arm (L), no edema noted Arm (R), no edema noted Leg (L), no edema noted Leg (R), no edema noted Pedal (L), no edema noted Pedal (R), no edema noted Generalized Byron Hull MD Oct 18, 2018 08:39
[2018-10-18] MEDS ORDERED: Enoxaparin 40mg Inj SUBQ SCH (09:00)
[2018-10-18] MEDS: Furosemide 40mg tab ORAL SCH (09:13)
[2018-10-18] MEDS: Levofloxacin 500mg tab ORAL SCH (09:13)
--- NOTE | 2018-10-18 09:44 | Pulmonology Progress Note ---
Assessment/Plan Assessment/Plan 1. Exacerbation of COPD. 2. Opioid usage. 3. Active smoker. 4. CHF. DISCUSSION: Agree with dc plans O2 prn Outpt followup Subjective Interval Events: None new; doing better Constitutional: Reports: no symptoms HEENT: Repors: no symptoms Respiratory: Reports: no symptoms Cardiovascular: Reports: no symptoms Gastrointestinal/Abdominal: Reports: no symptoms Genitourinary: Reports: no symptoms Allergies: Coded Allergies: LISINOPRIL (Verified Allergy, Unknown, 09/29/16) Objective Last 24 Hour Vital Signs Date Time Temp Pulse Resp B/P (MAP) Pulse Ox O2 Delivery O2 Flow Rate FiO2 10/18/18 09:20 77 130/72 10/18/18 08:05 72 14 100 Nasal Cannula 2.0 28 10/18/18 07:55 28 10/18/18 07:55 77 16 99 Nasal Cannula 2.0 28 10/18/18 05:35 79 135/69 10/18/18 04:00 2.0 10/18/18 04:00 Nasal Cannula 2.0 10/18/18 04:00 98.0 77 20 125/76 (92) 100 10/18/18 03:47 73 10/18/18 01:07 69 14 100 Nasal Cannula 2.0 28 10/18/18 01:01 72 16 99 Nasal Cannula 2.0 28 10/18/18 00:00 Nasal Cannula 2.0 10/18/18 00:00 98.0 72 20 107/51 (69) 98 10/18/18 00:00 2.0 10/17/18 23:22 74 10/17/18 21:29 76 118/64 10/17/18 20:00 Nasal Cannula 2.0 10/17/18 20:00 98.1 76 24 118/64 (82) 100 10/17/18 20:00 2.0 10/17/18 19:30 77 10/17/18 19:25 80 18 99 Room Air 21 10/17/18 19:15 73 18 97 Room Air 21 10/17/18 19:00 72 18 Room Air 21 10/17/18 16:00 97.9 94 23 139/74 (95) 100 10/17/18 16:00 4.0 10/17/18 16:00 Bi-pap 10/17/18 15:29 85 24 98 Facial 35 10/17/18 14:10 94 149/73 10/17/18 14:04 91 22 97 Facial 35 10/17/18 12:00 97.9 91 22 149/73 (98) 100 10/17/18 12:00 36 10/17/18 12:00 85 10/17/18 12:00 Bi-pap 10/17/18 11:05 88 20 99 Facial 35 10/17/18 09:57 86 130/53 Intake and Output 10/17/18 10/18/18 19:00 07:00 Intake Total 1150 ml 260 ml Output Total 600 ml 1200 ml Balance 550 ml -940 ml Intake Oral 1150 ml 260 ml Output Urine Total 600 ml 1200 ml General Appearance: no acute distress HEENT: normocephalic Respiratory/Chest: chest wall non-tender, lungs clear Cardiovascular: normal peripheral pulses, normal rate Abdomen: normal bowel sounds, soft, non tender Laboratory Tests 10/18/18 03:20: White Blood Count 4.2#L, Red Blood Count 3.95L, Hemoglobin 10.7L, Hematocrit 33.3L, Mean Corpuscular Volume 84, Mean Corpuscular Hemoglobin 27.1, Mean Corpuscular Hemoglobin Concent 32.2, Red Cell Distribution Width 14.5, Platelet Count 248, Mean Platelet Volume 5.8L, Neutrophils (%) (Auto) 77.5H, Lymphocytes (%) (Auto) 13.3L, Monocytes (%) (Auto) 8.9, Eosinophils (%) (Auto) 0.0, Basophils (%) (Auto) 0.3, Sodium Level 136, Potassium Level 4.3, Chloride Level 100, Carbon Dioxide Level 28, Anion Gap 8, Blood Urea Nitrogen 19H, Creatinine 1.0, Estimat Glomerular Filtration Rate > 60, Glucose Level 166H, Calcium Level 9.3 Current Medications Medications (Trade) Dose Ordered Sig/Pascale Route PRN Reason Start Time Stop Time Status Last Admin Dose Admin Acetaminophen (Tylenol) 650 mg Q4H PRN ORAL Mild Pain (Pain Scale 1-3) 10/17/18 09:00 11/16/18 08:59 Albuterol/ Ipratropium (Albuterol/ Ipratropium) 3 ml Q6HRT HHN 10/17/18 13:00 10/22/18 12:59 10/18/18 07:55 Amlodipine Besylate (Norvasc) 10 mg DAILY ORAL 10/17/18 09:00 11/16/18 08:59 10/18/18 09:20 Atorvastatin Calcium (Lipitor) 20 mg BEDTIME ORAL 10/17/18 21:00 11/16/18 20:59 10/17/18 20:37 Dextrose (Dextrose 50%) 25 ml Q30M PRN IV Hypoglycemia 10/17/18 09:00 11/16/18 08:59 Dextrose (Dextrose 50%) 50 ml Q30M PRN IV Hypoglycemia 10/17/18 09:00 11/16/18 08:59 Diltiazem HCl (Cardizem) 60 mg EVERY 8 HOURS ORAL 10/17/18 14:00 11/16/18 13:59 10/18/18 05:35 Enoxaparin Sodium (Lovenox) 40 mg DAILY SUBQ 10/18/18 09:00 11/17/18 08:59 10/18/18 09:19 Famotidine (Pepcid) 40 mg DAILY ORAL 10/17/18 09:00 11/16/18 08:59 10/18/18 09:13 Furosemide (Lasix) 40 mg EVERY 12 HOURS ORAL 10/17/18 21:00 11/16/18 20:59 10/18/18 09:13 Levofloxacin (Levaquin) 500 mg Q24H ORAL 10/17/18 10:00 10/24/18 09:59 10/18/18 09:13 Methylprednisolone Sodium Succinate (Solu-MEDROL) 40 mg Q8H IVP 10/17/18 10:00 11/16/18 09:59 10/18/18 09:14 Ondansetron HCl (Zofran) 4 mg Q6H PRN IVP Nausea & Vomiting 10/17/18 09:00 11/16/18 08:59 Ephraim Ayoub MD Oct 18, 2018 09:44
[2018-10-18 12:00] VITALS: BP 112/64
[2018-10-18 16:00] VITALS: BP 133/64
--- NOTE | 2018-10-18 17:48 | Cardiology Report ---
APPROVED REPORT EKG Measurement Heart [id number] Sinus tachycardia Rightward axis Septal infarct, age undetermined Abnormal ECG
--- NOTE | 2018-10-19 09:56 | Discharge Summary ---
Discharge Summary Discharge Summary _ DATE OF ADMISSION: 10/17/2018 DATE OF DISCHARGE: 10/18/2018 DISCHARGED BY: Dr. Byron Hull CONSULTANTS: Dr. Richar Ayoub BRIEF HOSPITAL COURSE: Patient is a 63-year-old male, who presented overnight for evaluation of increased shortness of breath. Patient is a chronic smoker and smokes approximately a pack to 1-1/2 pack per day. He called 911 because he was having difficulty breathing. There was no nausea, no vomiting or diarrhea. He denied chest pain. There were no palpitations. Per EMS, he was hypoxic and was in respiratory distress. He was given BiPAP and breathing treatment and was sent to ED for further evaluation. He has medical history significant for hypertension, CHF, COPD and tobacco dependency. On evaluation at the ED, blood pressure was 152/83, pulse rate 112, he was saturating 100% on 40% FiO2 on Venturi mask. While at the ED, he was placed back on BiPAP. Blood work did not show any leukocytosis, hemoglobin was 10, hematocrit 32. Electrolytes were normal. Urine toxicology was positive for opioids. Chest x-ray done showed borderline cardiomegaly. There was no definite acute process. He was then admitted for acute respiratory failure and COPD exacerbation. He was started on IV steroids. He was given IV Levaquin. He wa placed on nebulizer treatment. He was continued on Norvasc and diltiazem for hypertension. He was given Lipitor for cholesterol. He was placed on Lovenox subcutaneous for DVT prophylaxis. [employer] was consulted. He was weaned off BiPAP. He was saturating well on 2 L nasal cannula and breathing was much improved. He was back to baseline. He was strongly counseled against tobacco use. Due to rapid and unexpected improvement in patient's condition, he was discharged home. To follow-up as outpatient. FINAL DIAGNOSES: Acute respiratory failure requiring BiPAP Acute COPD exacerbation Opioid use Active smoker/tobacco dependency Hypertension Hyperlipidemia DISPOSITION: Patient was discharged home. DISCHARGE MEDICATIONS: Refer to Discharge Medication List. DISCHARGE INSTRUCTIONS: Patient was instructed to stop smoking. Follow-up with in a week. I have been assigned to complete a discharge summary on this account, I was not involved with the patient's management. Leia Spangler NP Oct 19, 2018 09:56
== END 2018-10-18 18:51 | disposition hospice, home (50) | DRG 190 ==
LOC: EDBD 01:12 → EMR 01:27 → 2W 02:55 → EDBEDREQ 04:27 → 2W 05:40
PROC: 5A09357 Assistance with Respiratory Ventilation, Less than 24 Consecutive Hours, Continuous Positive Airway Pressure (ICD-10-PCS; principal; 2018-10-17)
DX: J44.1 Chronic obstructive pulmonary disease with (acute) exacerbation (principal); J96.00 Acute respiratory failure, unspecified whether with hypoxia or hypercapnia; F17.200 Nicotine dependence, unspecified, uncomplicated; Z88.8 Allergy status to other drugs, medicaments and biological substances; I11.0 Hypertensive heart disease with heart failure; F11.90 Opioid use, unspecified, uncomplicated; E78.5 Hyperlipidemia, unspecified
CPT/HCPCS: 36415; 36600; 71045; 80048; 80053; 80307; 81003; 82550; 82553; 82803; 83880; 84484; 85025; 85610; 85730; 87081; 93005; 94640; 94660; 94664; 96372; 96374; 99291; J7620

== ENCOUNTER 2018-11-08 19:02 | Inpatient (IN) | payer MEDICARE, OTHER ==
[~2018-11-08] VITALS: Ht 172.7 cm; Wt 88.5 kg
[~2018-11-08 19:02] MED LIST changes: +AMLODIPINE BESY10 MG ORAL; +ATORVASTATIN CA20 MG ORAL; +DILTIAZEM 24HR180 M1 ORAL; +FAMOTIDINE20 MG ORAL; +HYDRALAZINE HCL50 MG ORAL; +PROMETH-CODEIN 65 ML PO; +SYMBICORT 80-10.2 G1 IH; +XANAX2 MG ORAL
[2018-11-08 19:05] VITALS: BP 210/105
[2018-11-08] MEDS ORDERED: ATORVASTATIN CA10 MG ORAL (19:05)
[2018-11-08] MEDS ORDERED: SPIRIVA18 MCG INH (19:06)
[2018-11-08] MEDS ORDERED: AMANTADINE100 MG ORAL (19:06)
[2018-11-08] MEDS ORDERED: ADVAIR 100-501 EACH INH (19:06)
[2018-11-08] MEDS ORDERED: Solu-MEDROL 125mg Inj IVP ONE (19:15)
[2018-11-08] MEDS ORDERED: Albuterol/Ipratropium 3ml neb HHN ONE ×2 (19:15→22:45)
[2018-11-08 19:45] LABS: BASOPHILS % (AUTO) 1.4 % (0.0-2.0); EOSINOPHILS % (AUTO) 1.2 % (0.0-3.0); HEMATOCRIT 32.9 % (42.0-52.0); HEMOGLOBIN 10.6 G/DL (14.2-18.0); LYMPHOCYTES % (AUTO) 10.2 % (20.0-45.0); MEAN CORPUSCULAR VOLUME 86 FL (80-99); MONOCYTES % (AUTO) 6.5 % (1.0-10.0); NEUTROPHILS % (AUTO) 80.7 % (45.0-75.0); PLATELET COUNT 268 K/UL (150-450); RED BLOOD COUNT 3.84 M/UL (4.70-6.10); RED CELL DISTRIBUTION WIDTH 14.5 % (11.6-14.8); WHITE BLOOD COUNT 12.9 K/UL (4.8-10.8)
[2018-11-08 19:47] LABS: ANION GAP 3 mmol/L (5-15); BLOOD UREA NITROGEN 11 mg/dL (7-18); CALCIUM 8.6 MG/DL (8.5-10.1); CARBON DIOXIDE 35 MMOL/L (21-32); CHLORIDE 102 MMOL/L (98-107); CREATININE 0.8 MG/DL (0.55-1.30); POTASSIUM 4.1 MMOL/L (3.5-5.1); SODIUM 140 MMOL/L (136-145)
[2018-11-08 19:59] LABS: ALANINE AMINOTRANSFERASE 21 U/L (12-78); ALBUMIN 3.4 G/DL (3.4-5.0); ALBUMIN/GLOBULIN RATIO 0.9 (1.0-2.7); ALKALINE PHOSPHATASE 83 U/L (46-116); ASPARTATE AMINO TRANSFERASE 17 U/L (15-37); BILIRUBIN,TOTAL 0.4 MG/DL (0.2-1.0); CKMB 1.4 NG/ML (0.0-3.6); CREATINE KINASE 52 U/L (26-308); PHOSPHORUS 3.3 MG/DL (2.5-4.9)
[2018-11-08] MEDS ORDERED: DILTIAZEM ER240 M2 ORAL (20:34)
[2018-11-08] MEDS ORDERED: SENNA8.6 M2 PO (20:41)
[2018-11-08] MEDS ORDERED: LIPITOR10 MG ORAL (20:41)
[2018-11-08] MEDS ORDERED: METHADONE HCL5 MG PO (20:41)
[2018-11-08] MEDS ORDERED: FUROSEMIDE40 MG ORAL (20:41)
[2018-11-08] MEDS ORDERED: FENTANYL1 EAC1 TOPIC (20:41)
[2018-11-08] MEDS ORDERED: SYMBICORT2 PUFF1 INH (20:41)
[2018-11-08] MEDS ORDERED: PROPAFENONE HC150 MG PO (20:41)
[2018-11-08] MEDS ORDERED: HYDROCODON-ACE1 EA13 ORAL (20:41)
[2018-11-08 21:00] VITALS: BP 135/68
[2018-11-08 21:56] LABS: APPEARANCE,URINE SLIGHTLY CLOUDY; BILIRUBIN, URINE NEGATIVE (NEGATIVE); GLUCOSE, URINE (UA) NEGATIVE (NEGATIVE); KETONES,URINE 1+ (NEGATIVE); LEUKOCYTE ESTERASE ,URINE 1+ (NEGATIVE); NITRITE,URINE NEGATIVE (NEGATIVE); PH,URINE 5 (4.5-8.0); PROTEIN,URINE 3+ (NEGATIVE); UROBILINOGEN,URINE 1 MG/DL (0.0-1.0)
[2018-11-08 22:00] LABS: COLOR,URINE BROWN
[2018-11-08] MEDS ORDERED: Nitroglycerin Subl 0.4mg tab SL PRN (22:45)
[2018-11-08 22:56] VITALS: BP 129/74
--- NOTE | 2018-11-08 22:58 | Emergency Room Report ---
History of Present Illness General Chief Complaint: Dyspnea/Respdistress Source: Patient, EMS Present Illness HPI Patient is a 63-year-old male presented after increased difficulty breathing. Patient a prior history of COPD. Patient was noted to have market increased and respiratory difficulty. Patient recently been hospitalized at [facility] after similar symptoms. Patient was noted to have increased nonproductive cough. Patient was noted to have market respiratory difficulty was started on supplemental oxygen by EMS. Allergies: Coded Allergies: LISINOPRIL (Verified Allergy, Unknown, 09/29/16) Patient History Past Medical History: see triage record, COPD Reviewed Nursing Documentation: PMH: Agreed; PSxH: Agreed Nursing Documentation-PMH Past Medical History: No History, Except For Hx Cardiac Problems: Yes - chf Hx Hypertension: Yes Hx Asthma: Yes Hx COPD: Yes Hx Cancer: No Hx Gastrointestinal Problems: Yes Hx Neurological Problems: No Review of Systems All Other Systems: negative except mentioned in HPI Physical Exam Vital Signs Date Time Temp Pulse Resp B/P (MAP) Pulse Ox O2 Delivery O2 Flow Rate FiO2 11/08/18 18:54 99.0 119 28 210/105 100 Non-Rebreather 15.0 11/08/18 19:42 60 General Appearance: alert, GCS 15, moderate distress Neck: limited range of motion Respiratory: accessory muscle use, wheezing Cardiovascular #1: normal peripheral pulses, regular rate, rhythm, edema Gastrointestinal: normal inspection, non tender, soft Genitourinary: other - uncircumcised male Musculoskeletal: normal inspection Neurologic: normal inspection, alert, oriented x3, responsive, insurance 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 Differential included but was not limited to anemia, pneumonia, pneumothorax, myocardial infarction, pericardial effusion, congestive heart failure, acidosis because of complexity of patient's case laboratory testing and imaging studies were ordered. EKG interpreted by me showed sinus tachycardia with a rate of [address] or T wave changes.X-ray 1 view interpreted by me showed normal cardiac size with perihilar thickening without any jim infiltrate. Patient was noted to have some initial difficulty breathing was started on BiPAP. Patient given IV steroids. Dr. Ephraim Ayoub was contacted for inpatient management due to prior admission. Dr. Byron Hull is currently covering per Dr. Ayoub. Labs Test 11/08/18 19:19 11/08/18 19:30 11/08/18 20:05 11/08/18 21:35 White Blood Count 12.9 K/UL (4.8-10.8) Red Blood Count 3.84 M/UL (4.70-6.10) Hemoglobin 10.6 G/DL (14.2-18.0) Hematocrit 32.9 % (42.0-52.0) Mean Corpuscular Volume 86 FL (80-99) Mean Corpuscular Hemoglobin 27.7 PG (27.0-31.0) Mean Corpuscular Hemoglobin Concent 32.3 G/DL (32.0-36.0) Red Cell Distribution Width 14.5 % (11.6-14.8) Platelet Count 268 K/UL (150-450) Mean Platelet Volume 5.0 FL (6.5-10.1) Neutrophils (%) (Auto) 80.7 % (45.0-75.0) Lymphocytes (%) (Auto) 10.2 % (20.0-45.0) Monocytes (%) (Auto) 6.5 % (1.0-10.0) Eosinophils (%) (Auto) 1.2 % (0.0-3.0) Basophils (%) (Auto) 1.4 % (0.0-2.0) Prothrombin Time 10.1 SEC (9.30-11.50) Prothromb Time International Ratio 1.0 (0.9-1.1) Activated Partial Thromboplast Time 23 SEC (23-33) Sodium Level 140 MMOL/L (136-145) Potassium Level 4.1 MMOL/L (3.5-5.1) Chloride Level 102 MMOL/L (98-107) Carbon Dioxide Level 35 MMOL/L (21-32) Anion Gap 3 mmol/L (5-15) Blood Urea Nitrogen 11 mg/dL (7-18) Creatinine 0.8 MG/DL (0.55-1.30) Estimat Glomerular Filtration Rate > 60 mL/min (>60) Glucose Level 134 MG/DL (74-106) Calcium Level 8.6 MG/DL (8.5-10.1) Phosphorus Level 3.3 MG/DL (2.5-4.9) Magnesium Level 1.8 MG/DL (1.8-2.4) Total Bilirubin 0.4 MG/DL (0.2-1.0) Aspartate Amino Transf (AST/SGOT) 17 U/L (15-37) Alanine Aminotransferase (ALT/SGPT) 21 U/L (12-78) Alkaline Phosphatase 83 U/L (46-116) Total Creatine Kinase 52 U/L (26-308) Creatine Kinase MB 1.4 NG/ML (0.0-3.6) Creatine Kinase MB Relative Index 2.6 Troponin I 0.005 ng/mL (0.000-0.056) Pro-B-Type Natriuretic Peptide 51 pg/mL (0-125) Total Protein 7.1 G/DL (6.4-8.2) Albumin 3.4 G/DL (3.4-5.0) Globulin 3.7 g/dL Albumin/Globulin Ratio 0.9 (1.0-2.7) Lipase 43 U/L (73-393) Lactic Acid Level 0.50 mmol/L (0.4-2.0) Arterial Blood pH 7.332 (7.350-7.450) Arterial Blood Partial Pressure CO2 67.1 mmHg (35.0-45.0) Arterial Blood Partial Pressure O2 369.6 mmHg (75.0-100.0) Arterial Blood HCO3 34.7 mmol/L (22.0-26.0) Arterial Blood Oxygen Saturation 99.4 % (95-100) Arterial Blood Base Excess 6.8 (-2-2) Siva Test Positive Urine Color Brown Urine Appearance Slightly cloudy Urine pH 5 (4.5-8.0) Urine Specific [place] 1.025 (1.005-1.035) Urine Protein 3+ (NEGATIVE) Urine Glucose (UA) Negative (NEGATIVE) Urine Ketones 1+ (NEGATIVE) Urine Blood 5+ (NEGATIVE) Urine Nitrite Negative (NEGATIVE) Urine Bilirubin Negative (NEGATIVE) Urine Urobilinogen 1 MG/DL (0.0-1.0) Urine Leukocyte Esterase 1+ (NEGATIVE) Urine RBC 20-30 /HPF (0 - 0) Urine WBC 2-4 /HPF (0 - 0) Urine Squamous Epithelial Cells None /LPF (NONE/OCC) Urine Bacteria Few /HPF (NONE) EKG Diagnostic Results Rate: tachycardiac Rhythm: NSR ST Segments: no acute changes Last Vital Signs Date Time Temp Pulse Resp B/P (MAP) Pulse Ox O2 Delivery O2 Flow Rate FiO2 11/08/18 21:12 87 20 100 Facial 40 11/08/18 21:00 98.8 135/68 15.0 Status: improved Disposition: ADMITTED INPATIENT Condition: Stable Referrals: NOT CHOSEN IPA/,REFERRING (PCP) Kvng Ngo MD Nov 08, 2018 22:58
[2018-11-08] MEDS ORDERED: Norco 5mg/325mg tab ORAL PRN (23:00)
[2018-11-09] VITALS (8 sets, daily range): BP systolic 105–129; BP diastolic 58–75
[2018-11-09] MEDS: Albuterol/Ipratropium 3ml neb HHN SCH ×4 (02:26→19:47)
[2018-11-09] MEDS ORDERED: Enoxaparin 40mg Inj SUBQ ONE (02:34)
[2018-11-09] MEDS: Enoxaparin 40mg Inj SUBQ SCH (02:35)
[2018-11-09] MEDS: Solu-MEDROL 40mg Inj IVP SCH ×3 (03:26→17:51)
[2018-11-09 06:22] LABS: HEMATOCRIT 33.6 % (42.0-52.0); HEMOGLOBIN 10.9 G/DL (14.2-18.0); MEAN CORPUSCULAR VOLUME 85 FL (80-99); PLATELET COUNT 272 K/UL (150-450); RED BLOOD COUNT 3.96 M/UL (4.70-6.10); RED CELL DISTRIBUTION WIDTH 14.9 % (11.6-14.8); WHITE BLOOD COUNT 7.7 K/UL (4.8-10.8)
[2018-11-09 06:33] LABS: ANION GAP 6 mmol/L (5-15); BLOOD UREA NITROGEN 19 mg/dL (7-18); CALCIUM 8.6 MG/DL (8.5-10.1); CARBON DIOXIDE 32 MMOL/L (21-32); CHLORIDE 100 MMOL/L (98-107); CREATININE 1.1 MG/DL (0.55-1.30); POTASSIUM 4.7 MMOL/L (3.5-5.1); SODIUM 138 MMOL/L (136-145)
[2018-11-09] MEDS: dilTIAZem HCl CD 240mg cap ORAL SCH (10:30)
[2018-11-09] MEDS: Furosemide 40mg tab ORAL SCH (10:31)
[2018-11-09] MEDS: Aspirin Baby 81mg ORAL SCH (10:31)
[2018-11-09] MEDS: HYDROcodone/Acetamin 10/325 tab ORAL PRN ×3 (12:10→22:26)
--- NOTE | 2018-11-09 12:53 | Consultation ---
History of Present Illness General Date patient seen: Nov 09, 2018 Time patient seen: 16:59 Chief Complaint: Dyspnea/Respdistress Present Illness HPI 63 year old male with HTN, AFIB, HLD, COPD presents with CP cough wheezing sob. Multiple admission for CHF and COPD. He is a heavy smoker. Troponin negative. He has severe LE edema. He is on oxygen. He is not compliant with medications. Troponin negative, CXR with cardiomegaly. Allergies: Coded Allergies: LISINOPRIL (Verified Allergy, Unknown, 09/29/16) Medication History Scheduled Atorvastatin Calcium* (Lipitor*), MG ORAL BEDTIME, (Reported) Diltiazem Hcl (Diltiazem Er), 240 MG ORAL DAILY, (Reported) Fentanyl 50MCG Patch (Fentanyl 50MCG Patch*), 1 PATCH TOPIC EVERY 72 HOURS, ( Reported) Furosemide* (Lasix*), 40 MG ORAL DAILY, (Reported) Methadone Hcl* (Methadone*), 5 MG PO BID, (Reported) Promethazine HCl/Codeine (Prometh-Codein 6.25-10 mg/5 ml), 15 ML PO TWICE A DAY, (Reported) Propafenone Hcl* (Rhythmol*), 150 MG PO BID, (Reported) Sennosides (Senna), 8.6 MG PO QHS, (Reported) Tiotropium [place]* (Spiriva*), 1 PUFF INH DAILY, (Reported) Scheduled PRN Hydrocodone Bit/Acetaminophen 10-325* (Hydrocodon-Acetaminophn 10-325*), 1 TAB ORAL Q4H PRN for For Pain, (Reported) Miscellaneous Medications Budesonide/Formoterol Fumarate (Symbicort 160-4.5 Mcg Inhaler), PUFFS INH, ( Reported) Discontinued Medications Acetaminophen (Acetaminophen), 650 MG ORAL Q6HR PRN for Fever/Headache/Mild Pain , (Reported) Discontinued Reason: Pt stopped taking med Albuterol Sulfate (Ventolin Hfa), 2 PUFFS INH EVERY 6 HOURS Discontinued Reason: Pt stopped taking med Alprazolam* (Xanax*), 2 MG ORAL TWICE A DAY, (Reported) Discontinued Reason: Pt stopped taking med Amantadine Hcl* (Symmetrel*), 100 MG ORAL TWICE A DAY, (Reported) Discontinued Reason: Pt stopped taking med Amlodipine Besylate* (Amlodipine Besylate*), 10 MG ORAL DAILY, (Reported) Discontinued Reason: Pt stopped taking med Atorvastatin Calcium* (Atorvastatin Calcium*), 10 MG ORAL BEDTIME, (Reported) Discontinued Reason: Pt stopped taking med Atorvastatin Calcium* (Lipitor*), 10 MG ORAL DAILY, (Reported) Discontinued Reason: Medication dose changed Budesonide, Micronized (Budesonide), 0.5 MG PO Q12HR, (Reported) Discontinued Reason: Pt stopped taking med Budesonide/Formoterol Fumarate (Symbicort 80-4.5 Mcg Inhaler), 1 PUFF IH, ( Reported) Discontinued Reason: Pt stopped taking med Clonidine Hcl* (Catapres*), 0.1 MG ORAL EVERY 6 HOURS PRN for For High Blood Pressure, (Reported) Discontinued Reason: Pt stopped taking med Diltiazem Hcl (Diltiazem 24HR Er), 180 MG ORAL DAILY, (Reported) Discontinued Reason: Prescription changed Enoxaparin* (Lovenox*), 30 MG SUBQ EVERY 12 HOURS, (Reported) Discontinued Reason: Pt stopped taking med Famotidine (Famotidine), 20 MG ORAL TWICE A DAY, (Reported) Discontinued Reason: Pt stopped taking med Fluticasone/Salmeterol (Advair 100-50 Diskus), 1 PUFF INH EVERY 12 HOURS, ( Reported) Discontinued Reason: Pt stopped taking med Furosemide* (Lasix*), 40 MG ORAL BID Discontinued Reason: Medication dose changed Guaifenesin* (Guaifenesin), 10 ML ORAL Q6H, (Reported) Discontinued Reason: Pt stopped taking med Hydralazine Hcl* (Hydralazine Hcl*), 50 MG ORAL EVERY 6 HOURS, (Reported) Discontinued Reason: Pt stopped taking med Ipratropium/Albuterol Sulfate (DuoNeb 0.5-3(2.5)mg/3ml), 3 ML HHN Q4HR PRN for Shortness of breath, (Reported) Discontinued Reason: Pt stopped taking med Ondansetron* (Zofran*), 4 MG ORAL Q6H PRN for Nausea & Vomiting, (Reported) Discontinued Reason: Pt stopped taking med Rivaroxaban (Xarelto), 20 MG ORAL DAILY Discontinued Reason: Pt stopped taking med Patient History Healthcare decision maker Resuscitation status Full Code Advanced Directive on File No Review of Systems Constitutional: Reports: no symptoms Eye: Reports: no symptoms ENT: Reports: no symptoms Respiratory: Reports: cough, shortness of breath, wheezing Cardiovascular: Reports: chest pain Gastrointestinal: Reports: no symptoms Musculoskeletal: Reports: no symptoms Skin: Reports: no symptoms Psychiatric: Reports: no symptoms Neurological: Reports: no symptoms Endocrine: Reports: no symptoms Hematologic/Lymphatic: Reports: no symptoms Physical Exam General Appearance: no apparent distress, alert Lines, tubes and drains: peripheral HEENT: normocephalic, atraumatic Neck: non-tender, normal alignment, supple, normal inspection, abnormal alignment Respiratory/Chest: chest wall non-tender, lungs clear, normal breath sounds Cardiovascular/Chest: normal peripheral pulses, normal rate, no JVD Abdomen: normal bowel sounds, non tender Extremities: normal range of motion, non-tender, normal inspection, no calf tenderness Skin Exam: normal pigmentation 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0 36 11/09/18 06:50 70 20 100 11/09/18 06:20 98.7 91 22 125/75 100 Nasal Cannula 3.0 40 11/09/18 05:31 79 20 99 11/09/18 04:40 98.5 90 18 127/74 99 Nasal Cannula 3.0 40 11/09/18 02:43 81 19 100 Bi-pap 40 11/09/18 02:35 98.4 88 16 124/62 100 Bi-pap 15.0 40 11/09/18 02:26 82 19 99 Bi-pap 40 11/09/18 00:44 81 19 99 Facial 40 11/09/18 00:30 98.4 98 21 128/73 100 Bi-pap 15.0 40 11/08/18 23:02 89 22 98 Bi-pap 40 11/08/18 22:56 98.4 100 18 129/74 97 Bi-pap 15.0 40 11/08/18 22:45 84 18 100 Facial 40 11/08/18 21:12 87 20 100 Facial 40 11/08/18 21:00 98.8 92 18 135/68 98 Bi-pap 15.0 40 11/08/18 20:05 84 20 100 Bi-pap 40 11/08/18 19:52 94 20 99 Bi-pap 60 11/08/18 19:42 95 24 98 Facial 60 11/08/18 19:05 119 28 Non-Rebreather 15.0 11/08/18 19:05 99.0 119 28 210/105 100 Non-Rebreather 15.0 11/08/18 18:54 99.0 119 28 210/105 100 Non-Rebreather 15.0 Intake and Output 11/08/18 11/09/18 19:00 07:00 Output Total 1 ml Balance -1 ml Output Urine Total 1 ml Laboratory Tests Test 11/08/18 19:19 11/08/18 19:30 11/08/18 20:05 11/08/18 21:35 White Blood Count 12.9 K/UL (4.8-10.8) H Red Blood Count 3.84 M/UL (4.70-6.10) L Hemoglobin 10.6 G/DL (14.2-18.0) L Hematocrit 32.9 % (42.0-52.0) L Mean Corpuscular Volume 86 FL (80-99) Mean Corpuscular Hemoglobin 27.7 PG (27.0-31.0) Mean Corpuscular Hemoglobin Concent 32.3 G/DL (32.0-36.0) Red Cell Distribution Width 14.5 % (11.6-14.8) Platelet Count 268 K/UL (150-450) Mean Platelet Volume 5.0 FL (6.5-10.1) L Neutrophils (%) (Auto) 80.7 % (45.0-75.0) H Lymphocytes (%) (Auto) 10.2 % (20.0-45.0) L Monocytes (%) (Auto) 6.5 % (1.0-10.0) Eosinophils (%) (Auto) 1.2 % (0.0-3.0) Basophils (%) (Auto) 1.4 % (0.0-2.0) Prothrombin Time 10.1 SEC (9.30-11.50) Prothromb Time International Ratio 1.0 (0.9-1.1) Activated Partial Thromboplast Time 23 SEC (23-33) Sodium Level 140 MMOL/L (136-145) Potassium Level 4.1 MMOL/L (3.5-5.1) Chloride Level 102 MMOL/L (98-107) Carbon Dioxide Level 35 MMOL/L (21-32) H Anion Gap 3 mmol/L (5-15) L Blood Urea Nitrogen 11 mg/dL (7-18) Creatinine 0.8 MG/DL (0.55-1.30) Estimat Glomerular Filtration Rate > 60 mL/min (>60) Glucose Level 134 MG/DL (74-106) H Calcium Level 8.6 MG/DL (8.5-10.1) Phosphorus Level 3.3 MG/DL (2.5-4.9) Magnesium Level 1.8 MG/DL (1.8-2.4) Total Bilirubin 0.4 MG/DL (0.2-1.0) Aspartate Amino Transf (AST/SGOT) 17 U/L (15-37) Alanine Aminotransferase (ALT/SGPT) 21 U/L (12-78) Alkaline Phosphatase 83 U/L (46-116) Total Creatine Kinase 52 U/L (26-308) Creatine Kinase MB 1.4 NG/ML (0.0-3.6) Creatine Kinase MB Relative Index 2.6 Troponin I 0.005 ng/mL (0.000-0.056) Pro-B-Type Natriuretic Peptide 51 pg/mL (0-125) Total Protein 7.1 G/DL (6.4-8.2) Albumin 3.4 G/DL (3.4-5.0) Globulin 3.7 g/dL Albumin/Globulin Ratio 0.9 (1.0-2.7) L Lipase 43 U/L (73-393) L Lactic Acid Level 0.50 mmol/L (0.4-2.0) Arterial Blood pH 7.332 (7.350-7.450) Arterial Blood Partial Pressure CO2 67.1 mmHg (35.0-45.0) *H Arterial Blood Partial Pressure O2 369.6 mmHg (75.0-100.0) H Arterial Blood HCO3 34.7 mmol/L (22.0-26.0) H Arterial Blood Oxygen Saturation 99.4 % (95-100) Arterial Blood Base Excess 6.8 (-2-2) H Siva Test Positive Urine Color Brown Urine Appearance Slightly cloudy Urine pH 5 (4.5-8.0) Urine Specific [place] 1.025 (1.005-1.035) Urine Protein 3+ (NEGATIVE) H Urine Glucose (UA) Negative (NEGATIVE) Urine Ketones 1+ (NEGATIVE) H Urine Blood 5+ (NEGATIVE) H Urine Nitrite Negative (NEGATIVE) Urine Bilirubin Negative (NEGATIVE) Urine Urobilinogen 1 MG/DL (0.0-1.0) H Urine Leukocyte Esterase 1+ (NEGATIVE) H Urine RBC 20-30 /HPF (0 - 0) H Urine WBC 2-4 /HPF (0 - 0) Urine Squamous Epithelial Cells None /LPF (NONE/OCC) Urine Bacteria Few /HPF (NONE) Test 11/09/18 06:10 White Blood Count 7.7 K/UL (4.8-10.8) Red Blood Count 3.96 M/UL (4.70-6.10) L Hemoglobin 10.9 G/DL (14.2-18.0) L Hematocrit 33.6 % (42.0-52.0) L Mean Corpuscular Volume 85 FL (80-99) Mean Corpuscular Hemoglobin 27.6 PG (27.0-31.0) Mean Corpuscular Hemoglobin Concent 32.5 G/DL (32.0-36.0) Red Cell Distribution Width 14.9 % (11.6-14.8) H Platelet Count 272 K/UL (150-450) Mean Platelet Volume 5.2 FL (6.5-10.1) L Neutrophils (%) (Auto) % (45.0-75.0) Lymphocytes (%) (Auto) % (20.0-45.0) Monocytes (%) (Auto) % (1.0-10.0) Eosinophils (%) (Auto) % (0.0-3.0) Basophils (%) (Auto) % (0.0-2.0) Differential Total Cells Counted 100 Neutrophils % (Manual) 93 % (45-75) H Lymphocytes % (Manual) 3 % (20-45) L Monocytes % (Manual) 2 % (1-10) Eosinophils % (Manual) 0 % (0-3) Basophils % (Manual) 0 % (0-2) Band Neutrophils 2 % (0-8) Platelet Estimate Adequate Platelet Morphology Normal Anisocytosis 1+ Sodium Level 138 MMOL/L (136-145) Potassium Level 4.7 MMOL/L (3.5-5.1) Chloride Level 100 MMOL/L (98-107) Carbon Dioxide Level 32 MMOL/L (21-32) Anion Gap 6 mmol/L (5-15) Blood Urea Nitrogen 19 mg/dL (7-18) H Creatinine 1.1 MG/DL (0.55-1.30) Estimat Glomerular Filtration Rate > 60 mL/min (>60) Glucose Level 212 MG/DL (74-106) H Calcium Level 8.6 MG/DL (8.5-10.1) Microbiology Date/Time Source Procedure Growth Status 11/08/18 19:20 Nasal Nares Influenza Types A,B Antigen (TIGIST) - Final Complete Height (Feet): 5 Height (Inches): 8.00 Weight (Pounds): 195 Medications Current Medications Medications (Trade) Dose Ordered Sig/Pascale Route PRN Reason Start Time Stop Time Status Last Admin Dose Admin Acetaminophen (Tylenol) 650 mg Q4H PRN ORAL Mild Pain (Pain Scale 1-3) 11/08/18 22:45 12/08/18 22:44 Acetaminophen/ Hydrocodone Bitart ([place] 10/325) 1 tab Q4H PRN ORAL For Pain 11/09/18 08:45 11/16/18 08:44 11/09/18 12:10 Albuterol/ Ipratropium (Albuterol/ Ipratropium) 3 ml Q6HRT HHN 11/09/18 01:00 11/14/18 00:59 11/09/18 06:50 Aspirin (ASA) 81 mg DAILY ORAL 11/09/18 09:00 12/09/18 08:59 11/09/18 10:31 Atorvastatin Calcium (Lipitor) 10 mg QHS ORAL 11/09/18 21:00 12/09/18 20:59 Ceftriaxone Sodium 1 gm/ Dextrose 55 ml @ 110 mls/hr Q24H IVPB 11/09/18 15:00 11/16/18 14:59 Dextrose (Dextrose 50%) 25 ml Q30M PRN IV Hypoglycemia 11/08/18 22:45 12/08/18 22:44 Dextrose (Dextrose 50%) 50 ml Q30M PRN IV Hypoglycemia 11/08/18 22:45 12/08/18 22:44 Diltiazem HCl (Cardizem CD) 240 mg DAILY ORAL 11/09/18 09:00 12/09/18 08:59 11/09/18 10:30 Diphenhydramine HCl (Benadryl) 25 mg Q6H PRN ORAL Itching/Pruritis 11/08/18 22:45 12/08/18 22:44 Enoxaparin Sodium (Lovenox) 40 mg Q24H SUBQ 11/09/18 00:00 12/09/18 00:00 11/09/18 02:35 Famotidine (Pepcid) 40 mg DAILY ORAL 11/09/18 09:00 12/09/18 08:59 11/09/18 10:30 Furosemide (Lasix) 40 mg DAILY ORAL 11/09/18 09:00 12/09/18 08:59 11/09/18 10:31 Methylprednisolone Sodium Succinate (Solu-MEDROL) 40 mg Q8H IVP 11/09/18 03:00 12/09/18 02:59 11/09/18 10:31 Nitroglycerin (Ntg) 0.4 mg Q5M PRN SL Prn Chest Pain 11/08/18 22:45 12/08/18 22:44 Ondansetron HCl (Zofran) 4 mg Q6H PRN IVP Nausea & Vomiting 11/08/18 22:45 12/08/18 22:44 Propafenone HCl (Rythmol) 150 mg BID ORAL 11/09/18 09:00 12/09/18 08:59 11/09/18 10:31 Assessment/Plan Status: stable Assessment/Plan Assessment 1. Hypertension. 2. Arrhythmias. 3. Hyperlipidemia. 4. Chronic pain syndrome. 5. Chronic obstructive pulmonary disease. 6. Medication non compliance. Plan: -Aspirin -Atorvastatin -Rhythmol -Cardizem -Lovenox -Steroids -Breathing treatments -Spot dose lasix -Home health/rehab Gerard Mendez MD Nov 09, 2018 12:53
--- NOTE | 2018-11-09 13:15 | Diagnostic Imaging Report ---
Indication: Shortness of breath Technique: One view of the chest Comparison: 10/17/2018 Findings: Some scarring is again demonstrated in the left upper lobe. The heart is borderline enlarged. The lungs and pleural spaces are otherwise clear. No significant interim change Impression: Borderline cardiomegaly No acute process
--- NOTE | 2018-11-09 15:45 | History and Physical Report ---
DATE OF ADMISSION: 11/08/2018 REASON FOR ADMISSION: 1. Shortness of breath. 2. Tobacco dependency. HISTORY OF PRESENT ILLNESS: The patient is a 63-year-old gentleman who presented to the emergency room overnight after difficulty breathing. The patient has chronic obstructive pulmonary disease with multiple histories of admissions for chronic obstructive pulmonary disease exacerbation. The patient continues to smoke on a regular basis. Last hospitalization, the patient said he would stop smoking due to respiratory issues and chronic obstructive pulmonary disease exacerbation, however, he continued to smoke after discharge. The patient was placed on BiPAP, which has since been discontinued overnight feeling better, breathing has improved. No chest pain. No nausea, vomiting, or diarrhea. PAST MEDICAL HISTORY: 1. Hypertension. 2. Arrhythmias. 3. Hyperlipidemia. 4. Chronic pain syndrome. 5. Chronic obstructive pulmonary disease. ALLERGIES: Lisinopril. FAMILY HISTORY: Positive for hypertension and diabetes. SOCIAL HISTORY: Denies any alcohol or illicit drug use. Does smoke on a regular basis, one pack a day. REVIEW OF SYSTEMS: NEUROLOGIC: The patient denies headache, change in vision, syncope, or presyncopal episodes. CARDIOVASCULAR: No current chest pain, palpitations, or angina. PULMONARY: Shortness of breath and nonproductive cough. GASTROINTESTINAL/GENITOURINARY: No change in urinary or bowel habits. No nausea, vomiting, or diarrhea. ENDOCRINOLOGY: No night sweats, fevers or chills. LABORATORY DATA: Labs dated 11/09/2018, white cell count 7.7, hemoglobin 10.9, and platelet count 272. Sodium 138, potassium 4.7, BUN 19, and creatinine 1.1. Troponin 0.005. Lipase 43. PHYSICAL EXAMINATION: VITAL SIGNS: Blood pressure 118/58, respiratory rate 21, and pulse 69. On 2 L nasal cannula 100%. GENERAL: The patient is awake and alert, not in distress. HEENT: Extraocular muscles intact. No lymphadenopathy noted. CARDIOVASCULAR: S1, S2. No rubs or gallops. PULMONARY: Mild diffuse expiratory wheezing. Fair air movement. ABDOMEN: Nondistended and nontender. EXTREMITIES: Trace edema bilaterally. ASSESSMENT AND PLAN: 1. Chronic obstructive pulmonary disease exacerbation secondary to continued tobacco dependency. We will give further advice on tobacco cessation. The patient has been given IV steroids. He is off the BiPAP and Pulmonary Critical Care has been consulted. Continue IV steroids along with inhaler therapy. 2. Hypertension, stable. Continue current regimen. 3. Atrial fibrillation, arrhythmia. The patient is on diltiazem and Rythmol. 4. DVT prophylaxis with Lovenox. DISPOSITION: We will attempt home health therapy to assist with medications. Byron Hull MD DR: JAY JAY JOB#: [id number] CC:
--- NOTE | 2018-11-09 17:30 | Consultation ---
DATE OF CONSULTATION: 11/09/2018 PULMONARY CONSULTATION: CONSULTING PHYSICIAN: Ephraim Ayoub M.D. HISTORY OF PRESENT ILLNESS: This is a 63-year-old male with a history of moderate COPD. He was recently admitted and discharged from the hospital with similar problems. He presents with shortness of breath. The patient was given oxygen and was also provided breathing treatment in the emergency room. PAST MEDICAL HISTORY: Notable for CHF, hypertension, and COPD. HOME MEDICATIONS: Reviewed and reconciled in the chart. ALLERGIES: Lisinopril. SURGERIES: None reported. SOCIAL HISTORY: The patient admits to being a former smoker. PHYSICAL EXAMINATION: GENERAL: Reveals a 63-year-old male. HEENT: Unremarkable. CHEST: Few rhonchi and decreased breath sounds bilaterally. HEART: Normal heart sounds. ABDOMEN: Soft. EXTREMITIES: There is 1+ edema bilaterally. LABORATORY DATA: Lab testing is notable for a white count of 12,900, hemoglobin 10.6. Chemistries otherwise unremarkable. Coags are negative. ABG shows pH 7.33, pCO2 67, pO2 369. Urinalysis is negative. A [place] catheter has been placed. IMAGING STUDIES: Not available. IMPRESSION: 1. Exacerbation of COPD. 2. CHF. DISCUSSION: We will admit to med/surg. At this point, I do not see a need for him to go to telemetry. I will continue home medications. Provide breathing treatments, DVT prophylaxis, Solu-Medrol, and antibiotics. We will follow as engineer rf deployment. Thank you for the consultation. Ephraim Ayoub M.D. DR: ROXANN JOB#: [id number] CC:
[2018-11-09] MEDS: cefTRIAXone 1 GM in D5W 55 ML IVPB SCH (17:52)
[2018-11-10] VITALS: BP 130/62
[2018-11-10] MEDS: Enoxaparin 40mg Inj SUBQ SCH (00:51)
[2018-11-10] MEDS: Albuterol/Ipratropium 3ml neb HHN SCH ×4 (01:44→19:00)
[2018-11-10] MEDS: Solu-MEDROL 40mg Inj IVP SCH ×3 (03:23→20:53)
[2018-11-10 04:00] VITALS: BP 129/59
[2018-11-10 08:00] VITALS: BP 129/62
[2018-11-10] MEDS ORDERED: Naloxone 0.4mg/ml Inj IV PRN ×2 (08:30→11:30)
[2018-11-10] MEDS ORDERED: fentaNYL Destruction MISC SCH (08:30)
--- NOTE | 2018-11-10 08:35 | Nephrology Progress Note ---
Assessment/Plan Assessment/Plan A/P 1) COPD Exac- patient much improved - steroids and inhalers - has home 02 and CPAP, wants to DC Hospice as he says he wants more help with meds and feels current hospice care insufficient 2) HTN- stable 3) CHF- lasix 4) DVT prophylaxis- with lovenox Subjective Date patient seen: Nov 10, 2018 Time patient seen: 08:30 ROS Limited/Unobtainable: No Allergies: Coded Allergies: LISINOPRIL (Verified Allergy, Unknown, 09/29/16) Subjective Patient breathing better Objective Last 24 Hour Vital Signs Date Time Temp Pulse Resp B/P (MAP) Pulse Ox O2 Delivery O2 Flow Rate FiO2 11/10/18 08:00 97.7 70 18 129/62 (84) 100 11/10/18 04:00 97.6 65 18 129/59 (82) 100 11/10/18 04:00 68 11/10/18 01:54 71 18 99 Nasal Cannula 3.0 32 11/10/18 01:44 32 11/10/18 01:44 71 18 98 Nasal Cannula 3.0 32 11/10/18 00:00 98.2 73 19 130/62 (84) 97 11/10/18 00:00 85 11/09/18 22:56 98.7 11/09/18 22:00 77 11/09/18 21:00 Non-Rebreather 11/09/18 20:00 77 11/09/18 20:00 97.9 77 18 105/60 (75) 94 11/09/18 19:57 76 20 99 Nasal Cannula 3.0 32 11/09/18 19:47 32 11/09/18 19:47 77 20 99 Nasal Cannula 3.0 32 11/09/18 19:47 Nasal Cannula 3.0 32 11/09/18 19:47 99 Nasal Cannula 3.0 32 11/09/18 16:30 Room Air 11/09/18 16:00 64 11/09/18 13:34 98.7 82 20 129/69 100 Nasal Cannula 4.0 36 11/09/18 13:12 84 20 100 Nasal Cannula 4.0 36 11/09/18 13:12 36 11/09/18 13:06 85 20 100 Nasal Cannula 4.0 36 11/09/18 13:06 85 20 100 11/09/18 12:12 82 21 129/69 100 Nasal Cannula 2.0 11/09/18 11:03 74 20 99 11/09/18 10:31 88 11/09/18 10:30 88 110/65 11/09/18 10:30 88 21 110/65 100 Nasal Cannula 2.0 11/09/18 09:00 74 20 100 Intake and Output 11/09/18 11/10/18 18:59 06:59 Intake Total 1021 ml Output Total 1050 ml Balance -29 ml Intake Oral 1021 ml Output Urine Total 1050 ml # Voids 1 Height (Feet): 5 Height (Inches): 8.00 Weight (Pounds): 195 General Appearance: no apparent distress, alert EENT: normal ENT inspection Neck: normal alignment, supple Cardiovascular: normal rate, regular rhythm Respiratory/Chest: lungs clear, normal breath sounds Abdomen: non tender, soft Edema: no edema noted Arm (L), no edema noted Arm (R), no edema noted Leg (L), no edema noted Leg (R), no edema noted Pedal (L), no edema noted Pedal (R), no edema noted Generalized Byron Hull MD Nov 10, 2018 08:35
[2018-11-10] MEDS: HYDROcodone/Acetamin 10/325 tab ORAL PRN ×3 (08:46→20:57)
[2018-11-10] MEDS: dilTIAZem HCl CD 240mg cap ORAL SCH (08:57)
[2018-11-10] MEDS: Aspirin Baby 81mg ORAL SCH (08:57)
[2018-11-10] MEDS: Furosemide 40mg tab ORAL SCH (08:57)
[2018-11-10] MEDS ORDERED: Nitroglycerin Subl 0.4mg tab SL PRN (11:30)
[2018-11-10 12:00] VITALS: BP 131/68
--- NOTE | 2018-11-10 13:18 | Pulmonology Progress Note ---
Assessment/Plan Assessment/Plan 1. Exacerbation of COPD. 2. CHF. DISCUSSION: Continue home medications. Provide breathing treatments, DVT prophylaxis, Solu-Medrol, and antibiotics. I will follow as manager of hospital. discussed with attending MD Thank you for the consultation. Subjective Interval Events: denies any new problems. states he is feeling better Constitutional: Reports: no symptoms HEENT: Repors: no symptoms Respiratory: Reports: no symptoms Cardiovascular: Reports: no symptoms Gastrointestinal/Abdominal: Reports: no symptoms Genitourinary: Reports: no symptoms Neurologic: Reports: no symptoms Allergies: Coded Allergies: LISINOPRIL (Verified Allergy, Unknown, 09/29/16) Objective Last 24 Hour Vital Signs Date Time Temp Pulse Resp B/P (MAP) Pulse Ox O2 Delivery O2 Flow Rate FiO2 11/10/18 09:22 70 20 99 Nasal Cannula 3.0 32 11/10/18 09:14 Nasal Cannula 3.0 32 11/10/18 09:14 32 11/10/18 09:14 98 Nasal Cannula 3.0 32 11/10/18 09:14 73 20 98 Nasal Cannula 3.0 32 11/10/18 09:00 Non-Rebreather 11/10/18 08:57 70 129/62 11/10/18 08:56 70 11/10/18 08:00 97.7 70 18 129/62 (84) 100 11/10/18 08:00 68 11/10/18 04:00 97.6 65 18 129/59 (82) 100 11/10/18 04:00 68 11/10/18 01:54 71 18 99 Nasal Cannula 3.0 32 11/10/18 01:44 32 11/10/18 01:44 71 18 98 Nasal Cannula 3.0 32 11/10/18 00:00 98.2 73 19 130/62 (84) 97 11/10/18 00:00 85 11/09/18 22:56 98.7 11/09/18 22:00 77 11/09/18 21:00 Non-Rebreather 11/09/18 20:00 77 11/09/18 20:00 97.9 77 18 105/60 (75) 94 11/09/18 19:57 76 20 99 Nasal Cannula 3.0 32 11/09/18 19:47 32 11/09/18 19:47 77 20 99 Nasal Cannula 3.0 32 11/09/18 19:47 Nasal Cannula 3.0 32 11/09/18 19:47 99 Nasal Cannula 3.0 32 11/09/18 16:30 Room Air 11/09/18 16:00 64 11/09/18 13:34 98.7 82 20 129/69 100 Nasal Cannula 4.0 36 Intake and Output 11/09/18 11/10/18 19:00 07:00 Intake Total 1021 ml Output Total 1050 ml Balance -29 ml Intake Oral 1021 ml Output Urine Total 1050 ml # Voids 1 General Appearance: no acute distress HEENT: normocephalic Respiratory/Chest: chest wall non-tender, lungs clear Cardiovascular: normal peripheral pulses, normal rate Abdomen: normal bowel sounds Microbiology Date/Time Source Procedure Growth Status 11/08/18 19:30 Blood Blood Culture - Preliminary NO GROWTH AFTER 24 HOURS Resulted 11/08/18 19:15 Blood Blood Culture - Preliminary NO GROWTH AFTER 24 HOURS Resulted 11/08/18 19:20 Nasal Nares Influenza Types A,B Antigen (TIGIST) - Final Complete Current Medications Medications (Trade) Dose Ordered Sig/Pascale Route PRN Reason Start Time Stop Time Status Last Admin Dose Admin Acetaminophen (Tylenol) 650 mg Q4H PRN ORAL Mild Pain (Pain Scale 1-3) 11/10/18 12:00 12/08/18 11:59 Acetaminophen/ Hydrocodone Bitart ([place] 10/325) 1 tab Q4H PRN ORAL BREAKTHROUGH PAIN 11/10/18 12:00 11/16/18 11:59 Albuterol/ Ipratropium (Albuterol/ Ipratropium) 3 ml Q6HRT HHN 11/10/18 13:00 11/14/18 00:59 Aspirin (ASA) 81 mg DAILY ORAL 11/11/18 09:00 12/09/18 08:59 Atorvastatin Calcium (Lipitor) 10 mg QHS ORAL 11/10/18 21:00 12/09/18 20:59 Ceftriaxone Sodium 1 gm/ Dextrose 55 ml @ 110 mls/hr Q24H IVPB 11/10/18 15:00 11/16/18 14:59 Dextrose (Dextrose 50%) 25 ml Q30M PRN IV Hypoglycemia 11/10/18 11:45 12/08/18 22:44 Dextrose (Dextrose 50%) 50 ml Q30M PRN IV Hypoglycemia 11/10/18 11:45 12/08/18 22:44 Diltiazem HCl (Cardizem CD) 240 mg DAILY ORAL 11/11/18 09:00 12/09/18 08:59 Diphenhydramine HCl (Benadryl) 25 mg Q6H PRN ORAL Itching/Pruritis 11/10/18 12:00 12/08/18 11:59 Enoxaparin Sodium (Lovenox) 40 mg Q24H SUBQ 11/11/18 00:00 12/09/18 00:00 Famotidine (Pepcid) 40 mg DAILY ORAL 11/11/18 09:00 12/09/18 08:59 Fentanyl (Duragesic) 1 patch Q72H TDERMAL 11/10/18 13:00 11/17/18 12:59 11/10/18 12:10 Furosemide (Lasix) 40 mg DAILY ORAL 11/11/18 09:00 12/09/18 08:59 Methylprednisolone Sodium Succinate (Solu-MEDROL) 40 mg Q8H IVP 11/10/18 12:00 12/09/18 11:59 11/10/18 12:07 Miscellaneous Medication (fentaNYL Destruction) 1 ea Q72H MISC 11/13/18 13:00 12/10/18 12:59 Naloxone HCl (Narcan) 0.1 mg Q30M PRN IV Sedation scale 3 or 4 11/10/18 11:30 12/10/18 11:29 Nitroglycerin (Ntg) 0.4 mg Q5M PRN SL Prn Chest Pain 11/10/18 11:30 12/08/18 22:44 Ondansetron HCl (Zofran) 4 mg Q6H PRN IVP Nausea & Vomiting 11/10/18 12:00 12/08/18 11:59 Propafenone HCl (Rythmol) 150 mg BID ORAL 11/10/18 18:00 12/09/18 20:59 Ephraim Ayoub MD Nov 10, 2018 13:18
[2018-11-10] MEDS ORDERED: cefTRIAXone 1 GM in D5W 55 ML IVPB SCH (15:00)
[2018-11-10 16:00] VITALS: BP 113/65
[2018-11-10] MEDS: cefTRIAXone 1 GM in D5W 55 ML IVPB SCH (16:25)
[2018-11-10] MEDS: Promethazine/Codeine 5ml UD ORAL PRN (18:21)
[2018-11-10 20:00] VITALS: BP 123/59
[2018-11-10] MEDS ORDERED: Sennosides 8.6mg tab ORAL SCH (21:00)
[2018-11-11] VITALS: BP 134/63
[2018-11-11] MEDS ORDERED: Enoxaparin 40mg Inj SUBQ SCH
[2018-11-11] MEDS: Albuterol/Ipratropium 3ml neb HHN SCH ×3 (01:12→11:29)
[2018-11-11] MEDS: HYDROcodone/Acetamin 10/325 tab ORAL PRN ×2 (02:36→08:36)
[2018-11-11 04:00] VITALS: BP 114/62
[2018-11-11] MEDS: Solu-MEDROL 40mg Inj IVP SCH ×2 (04:11→12:00)
[2018-11-11] MEDS: Promethazine/Codeine 5ml UD ORAL PRN (04:49)
[2018-11-11 06:58] LABS: HEMATOCRIT 32.3 % (42.0-52.0); HEMOGLOBIN 10.8 G/DL (14.2-18.0); MEAN CORPUSCULAR VOLUME 85 FL (80-99); PLATELET COUNT 290 K/UL (150-450); RED BLOOD COUNT 3.81 M/UL (4.70-6.10); RED CELL DISTRIBUTION WIDTH 15.2 % (11.6-14.8); WHITE BLOOD COUNT 11.7 K/UL (4.8-10.8)
[2018-11-11 07:20] LABS: ANION GAP 3 mmol/L (5-15); BLOOD UREA NITROGEN 27 mg/dL (7-18); CALCIUM 9.1 MG/DL (8.5-10.1); CARBON DIOXIDE 36 MMOL/L (21-32); CHLORIDE 100 MMOL/L (98-107); CREATININE 1.1 MG/DL (0.55-1.30); POTASSIUM 4.3 MMOL/L (3.5-5.1); SODIUM 139 MMOL/L (136-145)
[2018-11-11 08:00] VITALS: BP 126/70
[2018-11-11 08:32] VITALS: BP 126/70
[2018-11-11] MEDS ORDERED: dilTIAZem HCl CD 240mg cap ORAL SCH (09:00)
[2018-11-11] MEDS ORDERED: Furosemide 40mg tab ORAL SCH (09:00)
[2018-11-11] MEDS ORDERED: Aspirin Baby 81mg ORAL SCH (09:00)
[2018-11-11] MEDS ORDERED: Docusate 100mg cap ORAL SCH (09:00)
--- NOTE | 2018-11-11 09:28 | Discharge Instructions ---
Discharge Instructions Discharge Instructions Services at Discharge: hospice Diet: 2 GM sodium (low sodium) Resume Normal Activity?: Yes Activity: light activity Follow Up Orders Complete antibiotics and prednisone taper Patient has his own home hospice Home nebulizer being arranged F/u with PULMONARY For Congestive Heart Failure Reminder Report to your physician any weight gain of 5 pounds or more in one week. Byron Hull MD Nov 11, 2018 09:28
--- NOTE | 2018-11-11 09:31 | Nephrology Progress Note ---
Assessment/Plan Assessment/Plan A/P 1) COPD Exac- patient much improved - DC home today on Abx amd prednisone taper - has home 02 and CPAP, continue his home Hospice and arrange home nebulizer - Elevated WBC due to steroids. Taper Rxed 2) HTN- stable 3) CHF- lasix 4) DVT prophylaxis- with lovenox Subjective Date patient seen: Nov 11, 2018 Time patient seen: 09:29 ROS Limited/Unobtainable: No Allergies: Coded Allergies: LISINOPRIL (Verified Allergy, Unknown, 09/29/16) Subjective Patient breathing better. Set for DC today Objective Last 24 Hour Vital Signs Date Time Temp Pulse Resp B/P (MAP) Pulse Ox O2 Delivery O2 Flow Rate FiO2 11/11/18 08:35 63 11/11/18 08:32 76 126/70 11/11/18 08:07 76 20 99 Nasal Cannula 3.0 32 11/11/18 08:01 32 11/11/18 08:01 100 Nasal Cannula 3.0 32 11/11/18 08:01 Nasal Cannula 3.0 32 11/11/18 08:01 73 20 98 Nasal Cannula 3.0 32 11/11/18 08:00 98.5 63 18 126/70 (88) 100 11/11/18 04:00 97.6 65 20 114/62 (79) 100 11/11/18 01:25 80 23 100 Bi-pap 35 11/11/18 01:24 35 11/11/18 01:15 80 13 99 Facial 35 11/11/18 01:15 70 20 99 Bi-pap 35 11/11/18 00:00 97.7 65 18 134/63 (86) 99 11/10/18 22:30 75 14 100 Facial 35 11/10/18 21:34 97 Nasal Cannula 3.0 32 11/10/18 21:34 Nasal Cannula 3.0 32 11/10/18 21:00 Nasal Cannula 2.0 11/10/18 20:42 32 11/10/18 20:42 69 20 97 Nasal Cannula 3.0 32 11/10/18 20:32 72 20 98 Nasal Cannula 3.0 32 11/10/18 20:00 98.0 67 18 123/59 (80) 99 11/10/18 18:21 75 11/10/18 16:12 Nasal Cannula 3.0 32 11/10/18 16:12 Nasal Cannula 3.0 32 11/10/18 16:00 98.9 75 19 113/65 (81) 98 11/10/18 12:00 98.2 72 19 131/68 (89) 99 Intake and Output 11/10/18 11/11/18 18:59 06:59 Intake Total 2080 ml 500 ml Output Total 1000 ml Balance 1080 ml 500 ml Intake Oral 2080 ml 500 ml Output Urine Total 1000 ml # Voids 8 2 Laboratory Tests 11/11/18 05:20: White Blood Count 11.7H, Red Blood Count 3.81L, Hemoglobin 10.8L, Hematocrit 32.3L, Mean Corpuscular Volume 85, Mean Corpuscular Hemoglobin 28.3, Mean Corpuscular Hemoglobin Concent 33.4, Red Cell Distribution Width 15.2H, Platelet Count 290, Mean Platelet Volume 5.4L, Neutrophils (%) (Auto) , Lymphocytes (%) (Auto) , Monocytes (%) (Auto) , Eosinophils (%) (Auto) , Basophils (%) (Auto) , Neutrophils % (Manual) [Pending], Lymphocytes % (Manual) [Pending], Platelet Estimate [Pending], Platelet Morphology [Pending], Sodium Level 139, Potassium Level 4.3, Chloride Level 100, Carbon Dioxide Level 36H, Anion Gap 3L, Blood Urea Nitrogen 27H, Creatinine 1.1, Estimat Glomerular Filtration Rate > 60, Glucose Level 179H, Calcium Level 9.1 Height (Feet): 5 Height (Inches): 8.00 Weight (Pounds): 195 General Appearance: no apparent distress, alert EENT: normal ENT inspection Neck: normal alignment, supple Cardiovascular: normal rate, regular rhythm Respiratory/Chest: lungs clear, normal breath sounds Abdomen: non tender, soft Edema: no edema noted Arm (L), no edema noted Arm (R), no edema noted Leg (L), no edema noted Leg (R), no edema noted Pedal (L), no edema noted Pedal (R), no edema noted Generalized Byron Hull MD Nov 11, 2018 09:31
--- NOTE | 2018-11-11 11:00 | Pulmonology Progress Note ---
Assessment/Plan Assessment/Plan 1. Exacerbation of COPD. 2. CHF. DISCUSSION: Continue home medications. Agree with DC plans Outpt followup Subjective Interval Events: Doing better; less SOb Constitutional: Reports: no symptoms HEENT: Repors: no symptoms Respiratory: Reports: no symptoms Gastrointestinal/Abdominal: Reports: no symptoms Allergies: Coded Allergies: LISINOPRIL (Verified Allergy, Unknown, 09/29/16) Objective Last 24 Hour Vital Signs Date Time Temp Pulse Resp B/P (MAP) Pulse Ox O2 Delivery O2 Flow Rate FiO2 11/11/18 09:00 Nasal Cannula 2.0 11/11/18 08:35 63 11/11/18 08:32 76 126/70 11/11/18 08:07 76 20 99 Nasal Cannula 3.0 32 11/11/18 08:01 32 11/11/18 08:01 100 Nasal Cannula 3.0 32 11/11/18 08:01 Nasal Cannula 3.0 32 11/11/18 08:01 73 20 98 Nasal Cannula 3.0 32 11/11/18 08:00 98.5 63 18 126/70 (88) 100 11/11/18 04:00 97.6 65 20 114/62 (79) 100 11/11/18 01:25 80 23 100 Bi-pap 35 11/11/18 01:24 35 11/11/18 01:15 80 13 99 Facial 35 11/11/18 01:15 70 20 99 Bi-pap 35 11/11/18 00:00 97.7 65 18 134/63 (86) 99 11/10/18 22:30 75 14 100 Facial 35 11/10/18 21:34 97 Nasal Cannula 3.0 32 11/10/18 21:34 Nasal Cannula 3.0 32 11/10/18 21:00 Nasal Cannula 2.0 11/10/18 20:42 32 11/10/18 20:42 69 20 97 Nasal Cannula 3.0 32 11/10/18 20:32 72 20 98 Nasal Cannula 3.0 32 11/10/18 20:00 98.0 67 18 123/59 (80) 99 11/10/18 18:21 75 11/10/18 16:12 Nasal Cannula 3.0 32 11/10/18 16:12 Nasal Cannula 3.0 32 11/10/18 16:00 98.9 75 19 113/65 (81) 98 11/10/18 12:00 98.2 72 19 131/68 (89) 99 Intake and Output 11/10/18 11/11/18 18:59 06:59 Intake Total 2080 ml 500 ml Output Total 1000 ml Balance 1080 ml 500 ml Intake Oral 2080 ml 500 ml Output Urine Total 1000 ml # Voids 8 2 General Appearance: no acute distress HEENT: normocephalic Respiratory/Chest: chest wall non-tender, decreased breath sounds Cardiovascular: normal peripheral pulses, normal rate Abdomen: normal bowel sounds, soft, non tender Microbiology Date/Time Source Procedure Growth Status 11/08/18 19:30 Blood Blood Culture - Preliminary NO GROWTH AFTER 48 HOURS Resulted 11/08/18 19:15 Blood Blood Culture - Preliminary NO GROWTH AFTER 48 HOURS Resulted 11/08/18 19:20 Nasal Nares Influenza Types A,B Antigen (TIGIST) - Final Complete Laboratory Tests 11/11/18 05:20: White Blood Count 11.7H, Red Blood Count 3.81L, Hemoglobin 10.8L, Hematocrit 32.3L, Mean Corpuscular Volume 85, Mean Corpuscular Hemoglobin 28.3, Mean Corpuscular Hemoglobin Concent 33.4, Red Cell Distribution Width 15.2H, Platelet Count 290, Mean Platelet Volume 5.4L, Neutrophils (%) (Auto) , Lymphocytes (%) (Auto) , Monocytes (%) (Auto) , Eosinophils (%) (Auto) , Basophils (%) (Auto) , Differential Total Cells Counted 100, Neutrophils % ( Manual) 95H, Lymphocytes % (Manual) 5L, Monocytes % (Manual) 0L, Eosinophils % ( Manual) 0, Basophils % (Manual) 0, Band Neutrophils 0, Platelet Estimate Adequate, Platelet Morphology Normal, Anisocytosis 1+, Sodium Level 139, Potassium Level 4.3, Chloride Level 100, Carbon Dioxide Level 36H, Anion Gap 3L , Blood Urea Nitrogen 27H, Creatinine 1.1, Estimat Glomerular Filtration Rate > 60, Glucose Level 179H, Calcium Level 9.1 Current Medications Medications (Trade) Dose Ordered Sig/Pascale Route PRN Reason Start Time Stop Time Status Last Admin Dose Admin Acetaminophen (Tylenol) 650 mg Q4H PRN ORAL Mild Pain (Pain Scale 1-3) 11/10/18 12:00 12/08/18 11:59 Acetaminophen/ Hydrocodone Bitart ([place] 10/325) 1 tab Q4H PRN ORAL BREAKTHROUGH PAIN 11/10/18 12:00 11/16/18 11:59 11/11/18 08:36 Albuterol/ Ipratropium (Albuterol/ Ipratropium) 3 ml Q6HRT HHN 11/10/18 13:00 11/14/18 00:59 11/11/18 08:01 Aspirin (ASA) 81 mg DAILY ORAL 11/11/18 09:00 12/09/18 08:59 11/11/18 08:32 Atorvastatin Calcium (Lipitor) 10 mg QHS ORAL 11/10/18 21:00 12/09/18 20:59 11/10/18 21:00 Ceftriaxone Sodium 1 gm/ Dextrose 55 ml @ 110 mls/hr Q24H IVPB 11/10/18 15:00 11/16/18 14:59 11/10/18 15:00 Dextrose (Dextrose 50%) 25 ml Q30M PRN IV Hypoglycemia 11/10/18 11:45 12/08/18 22:44 Dextrose (Dextrose 50%) 50 ml Q30M PRN IV Hypoglycemia 11/10/18 11:45 12/08/18 22:44 Diltiazem HCl (Cardizem CD) 240 mg DAILY ORAL 11/11/18 09:00 12/09/18 08:59 11/11/18 08:32 Diphenhydramine HCl (Benadryl) 25 mg Q6H PRN ORAL Itching/Pruritis 11/10/18 12:00 12/08/18 11:59 Docusate Sodium (Colace) 100 mg TWICE A DAY ORAL 11/11/18 09:00 12/11/18 08:59 11/11/18 08:32 Enoxaparin Sodium (Lovenox) 40 mg Q24H SUBQ 11/11/18 00:00 12/09/18 00:00 11/10/18 23:29 Famotidine (Pepcid) 40 mg DAILY ORAL 11/11/18 09:00 12/09/18 08:59 11/11/18 08:35 Fentanyl (Duragesic) 1 patch Q72H TDERMAL 11/10/18 13:00 11/17/18 12:59 11/10/18 12:10 Furosemide (Lasix) 40 mg DAILY ORAL 11/11/18 09:00 12/09/18 08:59 11/11/18 08:33 Methylprednisolone Sodium Succinate (Solu-MEDROL) 40 mg Q8H IVP 11/10/18 12:00 12/09/18 11:59 11/11/18 04:11 Miscellaneous Medication (fentaNYL Destruction) 1 ea Q72H MISC 11/13/18 13:00 12/10/18 12:59 Naloxone HCl (Narcan) 0.1 mg Q30M PRN IV Sedation scale 3 or 4 11/10/18 11:30 12/10/18 11:29 Nitroglycerin (Ntg) 0.4 mg Q5M PRN SL Prn Chest Pain 11/10/18 11:30 12/08/18 22:44 Ondansetron HCl (Zofran) 4 mg Q6H PRN IVP Nausea & Vomiting 11/10/18 12:00 12/08/18 11:59 Promethazine HCl/ Codeine (Phenergan with Codeine) 5 ml Q6H PRN ORAL For Cough 11/10/18 17:45 12/10/18 17:44 11/11/18 04:49 Propafenone HCl (Rythmol) 150 mg BID ORAL 11/10/18 18:00 12/09/18 20:59 11/11/18 08:35 Sennosides (Senokot) 8.6 mg QHS ORAL 11/10/18 21:00 12/10/18 20:59 11/10/18 20:53 Ephraim Ayoub MD Nov 11, 2018 11:00
--- NOTE | 2018-11-13 07:34 | Discharge Summary ---
Discharge Summary Discharge Summary _ DATE OF ADMISSION: 11/08/2018 DATE OF DISCHARGE: 11/11/2018 DISCHARGED BY: Dr. Hull REASON FOR ADMISSION: 63 years old male with past medical history of hypertension, hyperlipidemia, COPD, chronic pain syndrome, arrhythmia, presented to emergency department with difficulty breathing. Patient reported small to be smoker on a regular basis. During the last admission patient was diagnosed with COPD exacerbation and required BiPAP. Upon presentation patient was tachycardic, tachypneic,blood pressure was severely elevated 210/105. Patient initially was placed by paramedics on 100% nonrebreathing mask. Upon evaluation in emergency room patient was placed on BiPAP. ABG on BiPAP demonstrated severe respiratory acidosis with PCO2 67 and pH , which was done on the BiPAP. Laboratory workup revealed mild leukocytosis WBC 12.9, mild anemia with hemoglobin 10.6 hematocrit 22.9. Stable electrolytes. Stable renal parameters. Stable LFT. Troponin - 0.005, pro BNP 51. EKG revealed sinus tachycardia, no acute ischemic changes. Lactic acid within normal limits -0.5. Urinalysis revealed no evidence of UTI. Chest x-ray revealed borderline cardiomegaly, no acute process. Patient was reported being on hospice services. Patient was admitted for further management. CONSULTANTS: house servant Dr. Mendez pulmonary Dr. Ayoub HOSPITAL COURSE: Patient admitted and started on supplemental oxygen and pulmonary toilet. Patient started on the IV steroids and empiric antibiotics. Patient was able to be weaned from the BiPAP and started on supplemental oxygen , titrated to keep pulse oximetry above 92%. Podiatry Assistant and house servant followed. Antitussive provided as needed. DVT prophylaxis provided. Patient was counseled on smoking cessation. Patient was not ready to quit smoking and declined nicotine patch. Antiplatelet therapy with aspirin and statin were continued. Spot dose of Lasix provided with close monitoring of volumes and cardiorenal parameters. Patient was continued on Cardizem and Rythmol for paroxysmal atrial fibrillation. GI prophylaxis provided. Bowel regimen instituted. Pain management addressed as needed. Patient clinically stabilized and was ready for discharge home to continue with hospice services. Patient has oxygen at home. FINAL DIAGNOSES: Acute COPD exacerbation Current smoker CHF Hypertension Atrial fibrillation Hyperlipidemia Chronic pain syndrome DISCHARGE MEDICATIONS: See Medication Reconciliation list. DISCHARGE INSTRUCTIONS: Patient was discharged home with hospice services I have been assigned to dictate discharge summary for this account. I was not involved in the patient's management. Abbi Frias NP Nov 13, 2018 07:34
[2018-11-13] MEDS ORDERED: fentaNYL Destruction MISC SCH (13:00)
== END 2018-11-11 12:09 | disposition home or self-care (01) | DRG 208 ==
LOC: EDBD 19:02 → EMR 19:30 → 2W 20:17 → EDBEDREQSVC 22:39 → EDBEDREQ 11-09 06:46 → 2W 11-09 07:36 → EDBEDREQ 11-09 12:50 → 2E 11-09 13:01 → 4E 11-10 10:59
PROC: 5A1935Z Respiratory Ventilation, Less than 24 Consecutive Hours (ICD-10-PCS; principal; 2018-11-08)
DX: J44.1 Chronic obstructive pulmonary disease with (acute) exacerbation (principal); I48.91 Unspecified atrial fibrillation; Z79.01 Long term (current) use of anticoagulants; E78.5 Hyperlipidemia, unspecified; G89.4 Chronic pain syndrome; Z88.8 Allergy status to other drugs, medicaments and biological substances; F17.200 Nicotine dependence, unspecified, uncomplicated; I11.0 Hypertensive heart disease with heart failure; I50.9 Heart failure, unspecified; Z91.14 Patient's other noncompliance with medication regimen
CPT/HCPCS: 36415; 36600; 71045; 80048; 80053; 81003; 82550; 82553; 82803; 83605; 83690; 83735; 83880; 84100; 84484; 85007; 85025; 85610; 85730; 86710; 87040; 93005; 94640; 94660; 94760; 96374; 99285; J7620

== ENCOUNTER 2018-11-28 02:03 | Inpatient (IN) | payer MEDICARE, OTHER ==
[~2018-11-28] VITALS: Ht 172.7 cm; Wt 84.4 kg
[2018-11-28] VITALS (8 sets, daily range): BP systolic 114–176; BP diastolic 61–89
[~2018-11-28 02:03] MED LIST changes: +ADVAIR 100-501 EACH INH; +AMANTADINE100 MG ORAL; +ATORVASTATIN CA10 MG ORAL; +DILTIAZEM ER240 M2 ORAL; +FENTANYL1 EAC1 TOPIC; +HYDROCODON-ACE1 EA13 ORAL; +LIPITOR10 MG ORAL; +METHADONE HCL5 MG PO; +PROPAFENONE HC150 MG PO; +SENNA8.6 M2 PO; +SPIRIVA18 MCG INH; +SYMBICORT2 PUFF1 INH
--- NOTE | 2018-11-28 02:10 | Emergency Room Report ---
History of Present Illness General Chief Complaint: Dyspnea/Respdistress Source: Patient, EMS Present Illness HPI Patient presents with paramedics reports of shortness of breath Patient reports that he was intubated about a month ago Also was in the hospital several days ago patient reports has a history of COPD CHF Patient presents in acute distress diaphoretic denies any chest pain however feels very short of breath Denies any fevers or chills denies any vomiting or diarrhea Allergies: Coded Allergies: LISINOPRIL (Verified Allergy, Unknown, 09/29/16) Patient History Past Medical History: see triage record Pertinent Family History: none Reviewed Nursing Documentation: PMH: Agreed; PSxH: Agreed Nursing Documentation-PMH Hx Hypertension: Yes Hx Asthma: Yes Hx COPD: Yes Hx Cancer: No Hx Gastrointestinal Problems: Yes Hx Neurological Problems: No Review of Systems All Other Systems: negative except mentioned in HPI Physical Exam Vital Signs Date Time Temp Pulse Resp B/P (MAP) Pulse Ox O2 Delivery O2 Flow Rate FiO2 11/28/18 01:58 100 22 168/82 98 Nasal Cannula 2.0 Sp02 EP Interpretation: reviewed, normal General Appearance: severe distress - Diaphoretic, short of breath Head: normocephalic, atraumatic Eyes: bilateral eye PERRL, bilateral eye EOMI ENT: hearing grossly normal, normal pharynx Neck: supple Respiratory: other - Tachypneic and wheezing bilaterally, retractions noted Cardiovascular #1: tachycardia Gastrointestinal: non tender, soft Musculoskeletal: normal inspection Neurologic: alert, oriented x3 Skin: other - Edema bilaterally Lymphatic: no adenopathy Procedures Critical Care Time Critical Care Time 70 minutes for initial critical presentation, multiple re-evaluations continued evaluation of the emergency room, concern for respiratory failure not including any procedural time, Medical Decision Making Diagnostic Impression: Primary Impression: Dyspnea Additional Impressions: Respiratory distress COPD exacerbation ER Course Patient is a fairly complex patient with multiple differential to consideration including but not limited to cardiac cardiopulmonary and vascular emergencies Patient presents diaphoretic appears in acute distress Emergency BiPAP was initiated Breathing treatments and steroids as well along with magnesium patient has Significantly improved medical records are Reviewed from previous as well shows similar presentation Patient received some hydration lactic acid is mildly elevated However given the concern for acute CHF Full 30 mL/kg saline has not been initiated Patient has done significantly better white blood cell count is elevated Likely secondary to the margin sensation patient admitted for further care Labs Test 11/28/18 02:15 11/28/18 03:20 White Blood Count 19.9 K/UL (4.8-10.8) Red Blood Count 4.64 M/UL (4.70-6.10) Hemoglobin 12.9 G/DL (14.2-18.0) Hematocrit 40.3 % (42.0-52.0) Mean Corpuscular Volume 87 FL (80-99) Mean Corpuscular Hemoglobin 27.9 PG (27.0-31.0) Mean Corpuscular Hemoglobin Concent 32.1 G/DL (32.0-36.0) Red Cell Distribution Width 15.6 % (11.6-14.8) Platelet Count 453 K/UL (150-450) Mean Platelet Volume 5.4 FL (6.5-10.1) Neutrophils (%) (Auto) % (45.0-75.0) Lymphocytes (%) (Auto) % (20.0-45.0) Monocytes (%) (Auto) % (1.0-10.0) Eosinophils (%) (Auto) % (0.0-3.0) Basophils (%) (Auto) % (0.0-2.0) Sodium Level 145 MMOL/L (136-145) Potassium Level 4.6 MMOL/L (3.5-5.1) Chloride Level 101 MMOL/L (98-107) Carbon Dioxide Level 37 MMOL/L (21-32) Anion Gap 7 mmol/L (5-15) Blood Urea Nitrogen 25 mg/dL (7-18) Creatinine 1.2 MG/DL (0.55-1.30) Estimat Glomerular Filtration Rate > 60 mL/min (>60) Glucose Level 114 MG/DL (74-106) Lactic Acid Level 2.70 mmol/L (0.4-2.0) Calcium Level 10.0 MG/DL (8.5-10.1) Total Bilirubin 0.5 MG/DL (0.2-1.0) Aspartate Amino Transf (AST/SGOT) 39 U/L (15-37) Alanine Aminotransferase (ALT/SGPT) 33 U/L (12-78) Alkaline Phosphatase 111 U/L (46-116) Total Creatine Kinase 140 U/L (26-308) Creatine Kinase MB 1.0 NG/ML (0.0-3.6) Creatine Kinase MB Relative Index 0.7 Troponin I 0.000 ng/mL (0.000-0.056) Pro-B-Type Natriuretic Peptide 41 pg/mL (0-125) Total Protein 7.9 G/DL (6.4-8.2) Albumin 3.9 G/DL (3.4-5.0) Globulin 4.0 g/dL Albumin/Globulin Ratio 1.0 (1.0-2.7) Lipase 56 U/L (73-393) Urine Color Yellow Urine Appearance Clear Urine pH 7 (4.5-8.0) Urine Specific [place] 1.010 (1.005-1.035) Urine Protein 2+ (NEGATIVE) Urine Glucose (UA) Negative (NEGATIVE) Urine Ketones Negative (NEGATIVE) Urine Blood 1+ (NEGATIVE) Urine Nitrite Negative (NEGATIVE) Urine Bilirubin Negative (NEGATIVE) Urine Urobilinogen 4 MG/DL (0.0-1.0) Urine Leukocyte Esterase Negative (NEGATIVE) Urine RBC 0-2 /HPF (0 - 0) Urine WBC 0 /HPF (0 - 0) Urine Squamous Epithelial Cells None /LPF (NONE/OCC) Urine Bacteria Few /HPF (NONE) Urine Opiates Screen Positive (NEGATIVE) Urine Barbiturates Screen Negative (NEGATIVE) Phencyclidine (PCP) Screen Negative (NEGATIVE) Urine Amphetamines Screen Negative (NEGATIVE) Urine Benzodiazepines Screen Negative (NEGATIVE) Urine Cocaine Screen Negative (NEGATIVE) Urine Marijuana (THC) Screen Negative (NEGATIVE) EKG Diagnostic Results Rate: tachycardiac Rhythm: other ST Segments: other - Nonspecific ST T-wave changes Rhythm Strip Diag. Results EP Interpretation: yes Rate: 110 Rhythm: no PVC's, no ectopy, other - Sinus tach Chest X-Ray Diagnostic Results Chest X-Ray Diagnostic Results : Chest X-Ray Ordered: Yes # of Views/Limited/Complete: 1 View Indication: Chest Pain EP Interpretation: Yes Interpretation: no consolidation, no effusion, no pneumothorax Impression: No acute disease Electronically Signed by: Rebecca Reyez DO Last Vital Signs Date Time Temp Pulse Resp B/P (MAP) Pulse Ox O2 Delivery O2 Flow Rate FiO2 11/28/18 01:58 100 22 168/82 98 Nasal Cannula 2.0 Status: improved Disposition: ADMITTED INPATIENT Condition: Critical Rebecca Reyez DO Nov 28, 2018 02:10
[2018-11-28] MEDS ORDERED: Solu-MEDROL 125mg Inj IVP ONE (02:15)
[2018-11-28] MEDS ORDERED: Ipratropium 0.02% Inh Soln 2.5ml UD HHN ONE (02:15)
[2018-11-28] MEDS ORDERED: Albuterol ud Inhalation HHN ONE (02:15)
--- NOTE | 2018-11-28 02:30 | NUR ---
ED Nurse Note: Patient BIBA from home c/o shortness of breath for several hours. Patient reports he has chronic sternal chest pain radiating to left and right sides. Patient states he was recently diagnosed with bone cancer. Patient states the shortness of breath came on due to the pain. Patient SpO2 at 98% on 2lpm via nc. Upon arrival patient was placed on BiPap by RT. Patient has wheezing in all lobes upon auscultation bilaterally. Patient AOx4, VSS, ambulatory with steady gait. Patient seen by EDUAR at bedside.
--- NOTE | 2018-11-28 02:36 | NUR ---
PT. BROUGHT IN FROM HOME VIA AMBULANCE ON NRB MASK. PT WAS DIAPHORETIC WITH AN INCREASED HR, RR. PT PRESENTED WITH DIMINISHED BREATH SOUNDS AND WHEEZING. PT WAS PLACED ON BIPAP 12/5 RATE OF 16, 100% FIO2. SPONGE TAPE WAS PLACED ON FACE. PT CURRENTLY OF FULL FACE MASK. HHN TX GIVEN AND TOLERATED WELL. WILL CONTINUE TO MONITOR.
[2018-11-28 02:52] LABS: HEMATOCRIT 40.3 % (42.0-52.0); HEMOGLOBIN 12.9 G/DL (14.2-18.0); MEAN CORPUSCULAR VOLUME 87 FL (80-99); PLATELET COUNT 453 K/UL (150-450); RED BLOOD COUNT 4.64 M/UL (4.70-6.10); RED CELL DISTRIBUTION WIDTH 15.6 % (11.6-14.8); WHITE BLOOD COUNT 19.9 K/UL (4.8-10.8)
--- NOTE | 2018-11-28 02:55 | NUR ---
ED Nurse Note: covering for primary rn for break. [place], respiratory therapist on bedsied monitoring pt for mechanical ventilator. pt is on sitting position, vs recorded. ermd has order of lasix. solu medrol and iv mag So4 and carried out, pt refused catheter insertion, risk and benefits explained but pt still refused. pt able to make needs known. will continue to monitor.
[2018-11-28 03:00] LABS: ANION GAP 7 mmol/L (5-15); BLOOD UREA NITROGEN 25 mg/dL (7-18); CARBON DIOXIDE 37 MMOL/L (21-32); CHLORIDE 101 MMOL/L (98-107); CREATININE 1.2 MG/DL (0.55-1.30); POTASSIUM 4.6 MMOL/L (3.5-5.1); SODIUM 145 MMOL/L (136-145)
[2018-11-28 03:13] LABS: ALANINE AMINOTRANSFERASE 33 U/L (12-78); ALBUMIN 3.9 G/DL (3.4-5.0); ALKALINE PHOSPHATASE 111 U/L (46-116); ASPARTATE AMINO TRANSFERASE 39 U/L (15-37); BILIRUBIN,TOTAL 0.5 MG/DL (0.2-1.0); CREATINE KINASE 140 U/L (26-308)
[2018-11-28 03:25] LABS: APPEARANCE,URINE CLEAR; BILIRUBIN, URINE NEGATIVE (NEGATIVE); GLUCOSE, URINE (UA) NEGATIVE (NEGATIVE); KETONES,URINE NEGATIVE (NEGATIVE); LEUKOCYTE ESTERASE ,URINE NEGATIVE (NEGATIVE); NITRITE,URINE NEGATIVE (NEGATIVE); PH,URINE 7 (4.5-8.0); PROTEIN,URINE 2+ (NEGATIVE); UROBILINOGEN,URINE 4 MG/DL (0.0-1.0)
[2018-11-28 03:29] LABS: COLOR,URINE YELLOW
--- NOTE | 2018-11-28 03:45 | NUR ---
ED Nurse Note: Patient's skin appears intact.
--- NOTE | 2018-11-28 04:45 | NUR ---
ED Nurse Note: Lactic Acid reflex drawn and sent to lab. MRSA/VRE/CRE cultures collected and sent to lab.
--- NOTE | 2018-11-28 04:59 | NUR ---
ED Nurse Note: Patient is sitting on edge of bed. Patient has BiPap on. Patient AOx4, VSS, ambulatory with steady gait. Will continue to monitor.
--- NOTE | 2018-11-28 05:00 | NUR ---
ED Nurse Note: Patient has bilateral pedal edema.
--- NOTE | 2018-11-28 05:50 | NUR ---
ED Nurse Note: Patient being transferred to SDU. Patient transferred on [facility], connected to cardiac specialist, by information technology officer, balance staff inspector, and RT. Patient AOx4, VSS, ambulatory with steady gait, no s/s of acute distress noted at this time. Patient sent with all belongings. Patient stated he did not want hospital staff to look at or count his mustafa. Patient report given to Parisa MCNEILL at bedside.
--- NOTE | 2018-11-28 06:20 | NUR ---
NURSE NOTES: Pt admitted from ER. Pt is awake and alert and slight agitated. On BiPAP 12/5 FiO2 60% and SaO2 100% noted. Denied pain at this time. Iv site intact and no sign of infiltration noted. Applied Tele monitor . Given admission instruction. Educated him for smoking cessation. Noted Swelling on both leg and feet. Pt refused lying on the bed and elevated leg and he want to sitting on the chair. Explained benefits and risks. Pt said he has money but pt strongly refused to checked money. Explained benefits and risks. Pt refused take off the pants for skin assessment back and lower site at this time. but no open wound noted on front site and leg and feet area. Placed fall precaution. Will continue to care plan. Left massage to Dr. Hull for admission order and awaiting call back.
--- NOTE | 2018-11-28 06:41 | NUR ---
NURSE NOTES: Get call back from Dr. Hull and he said he will come and will give order later.
[2018-11-28] MEDS ORDERED: Sennosides 8.6mg tab ORAL PRN (07:00)
--- NOTE | 2018-11-28 07:25 | NUR ---
HAND-OFF: Report given to OSITO Rubi. Pt is sitting the bed and apply BiPAP. No sign of acute distress noted.
[2018-11-28] MEDS ORDERED: Naloxone 0.4mg/ml Inj IV PRN ×2 (07:30→21:45)
--- NOTE | 2018-11-28 08:00 | NUR ---
NURSE NOTES: Received report from Trino MCNEILL. Pt sitting on chair at bedside. AAOX4. RR even and non labored. On BiPAP / 60% FiO2. Pt vocalizes relief on SOB on BiPAP. Pt's BiPAP removed for breakfast and is on 2L NC. Pt tolerating well. Pt afebrile. NSR to CM. Pt ambulatory. Pt vocalizes to RN that he has money and cell phone however refuses to allow RN to document pt's belongings nor allows RN to assess pt for wounds. Charge nurse notified of above events. Pt otherwise sitting comfortably while talking in complete sentences on cell phone and watching TV. Pt eating meal tray while maintaining patent airway. NAD noted.
[2018-11-28] MEDS ORDERED: Furosemide 40mg tab ORAL SCH (09:00)
[2018-11-28] MEDS ORDERED: dilTIAZem HCl CD 240mg cap ORAL SCH (09:00)
--- NOTE | 2018-11-28 09:26 | NUR ---
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
--- NOTE | 2018-11-28 10:00 | NUR ---
NURSE NOTES: Bedside rounding done by Dr. Hull. Pt speaking in complete sentences with RN and MD. Pt continues to watch TV. NAD noted.
[2018-11-28] MEDS: Furosemide 40mg tab ORAL SCH ×2 (10:27→20:09)
--- NOTE | 2018-11-28 10:39 | Diagnostic Imaging Report ---
Indication: Shortness of breath Technique: One view of the chest Comparison: 11/08/2018 Findings: Patient's chin obscures the right lung apex. Right costophrenic angle is cut off of the exam. Per technologist, patient did not wish to have any further images taken There is evidence of prior surgery in the left upper lung. There is some scarring and granulomatous calcification in the left upper lung. The lungs and visualized pleural spaces are otherwise clear. The heart size is normal. Impression: Limited exam, as described No definite acute process
[2018-11-28] MEDS ORDERED: Enoxaparin 40mg Inj SUBQ SCH (11:15)
[2018-11-28] MEDS: Albuterol/Ipratropium 3ml neb HHN SCH ×2 (12:00→20:43)
--- NOTE | 2018-11-28 12:00 | NUR ---
NURSE NOTES: Pt sitting in chair and speaking with friend at bedside while watching TV. Pt appears comfortable. NAD noted.
[2018-11-28] MEDS: HYDROcodone/Acetamin 10/325 tab ORAL PRN ×2 (15:17→21:08)
--- NOTE | 2018-11-28 16:04 | NUR ---
NURSE NOTES: Pt sitting in chair while watching TV. Appears calm. Pt occasionally walks around room with even and steady gait.
--- NOTE | 2018-11-28 16:58 | Cardiology Report ---
APPROVED REPORT EKG Measurement Heart [id number] Sinus tachycardia Rightward axis Borderline ECG
--- NOTE | 2018-11-28 17:04 | Consultation ---
Consult Note Consult Note CONSULTING PHYSICIAN: Ephraim Ayoub M.D. HISTORY OF PRESENT ILLNESS: This is a 63-year-old male, who came to the emergency room last night with complaints of shortness of breath. The patient has a history of COPD and he was admitted to the hospital after being placed on a BiPAP. At this time, the patient is no longer on BiPAP, but states he is feeling better. He is an active smoker. He also reported history of CHF. HOME MEDICATIONS: Reviewed and reconciled in the chart. ALLERGIES: None reported except lisinopril. PAST HISTORY: Hypertension, CHF, and COPD. SOCIAL HISTORY: He admits to tobacco use. Admits to occasional alcohol. REVIEW OF SYSTEMS: Denies any headaches, hematemesis, melena, hematochezia, or weight loss. PHYSICAL EXAMINATION: GENERAL: Reveals an elderly male. VITAL SIGNS: Blood pressure 127/50, heart rate 94, respirations 18, O2 saturation 98% on nasal oxygen. HEENT: Unremarkable. LUNGS: Clear breath sounds bilaterally. HEART: Normal heart sounds. ABDOMEN: Soft. NEUROLOGIC: Nonfocal. LABORATORY AND DIAGNOSTIC DATA: Lab testing is reviewed and reconciled negative. IMPRESSION: 1. Exacerbation of COPD. 2. Opioid usage. 3. Active smoker. 4. CHF. DISCUSSION: Admitted to the hospital. I will wean off BiPAP. Continue steroids and empiric antibiotics. I will follow carefully as family dentist. Ephraim Ayoub M.D. Ephraim Ayoub MD Nov 28, 2018 17:04
--- NOTE | 2018-11-28 17:30 | History and Physical Report ---
DATE OF ADMISSION: 11/28/2018 REASON FOR ADMISSION: 1. Shortness of breath. 2. COPD exacerbation. HISTORY OF PRESENT ILLNESS: The patient is a 63-year-old gentleman, well known to [facility] with multiple admissions for chronic obstructive pulmonary disease exacerbation, as the patient continues to be tobacco dependent and smoking. The patient is being admitted again for worsening shortness of breath over the last several days. He says that he was due for an MRI at [facility] for possible sternal cancer. The patient says that when he called 911, he was being taken to [facility], however, [facility] was full and he was reverted back to [place]. No current nausea, vomiting, or diarrhea. No chest pain. Shortness of breath is improved overnight. ALLERGIES: Lisinopril. PAST MEDICAL HISTORY: 1. COPD. 2. CHF. 3. Chronic pain syndrome. FAMILY HISTORY: Positive for hypertension. PAST SURGICAL HISTORY: Noncontributory. REVIEW OF SYSTEMS: NEUROLOGIC: The patient denies headache, change in vision, syncope, or presyncopal episodes. CARDIOVASCULAR: No current chest pain, palpitations, or angina. PULMONARY: He is having mild shortness of breath with productive cough. GASTROINTESTINAL/GENITOURINARY: No change in urinary or bowel habits. No nausea, vomiting, or diarrhea. ENDOCRINOLOGY: No night sweats, fevers, or chills. LABORATORY DATA: Labs dated 11/28/2018, white cell count 19.9, hemoglobin 12.9, and platelet count 453. Sodium 145, potassium 4.6, and creatinine 1.2. Troponin 0. PHYSICAL EXAMINATION: VITAL SIGNS: Blood pressure 152/69, pulse 86, and temperature 98.2, 100% oxygen saturation on 2 L nasal cannula. GENERAL: Awake, in no overt distress. Talking in complete sentences without any shortness of breath. HEENT: Extraocular muscles intact. No lymphadenopathy noted. CARDIOVASCULAR: S1, S2. No rubs or gallops. PULMONARY: Diffuse mild expiratory wheezing. ABDOMEN: Nondistended and nontender. EXTREMITIES: No edema noted. ASSESSMENT AND PLAN: 1. Chronic obstructive pulmonary disease exacerbation. At this time, we will initiate antibiotic therapy. The patient is off BiPAP feeling better and Pulmonary has been consulted for further evaluation, management and care. 2. Hypertension. Adjust medications as deemed appropriate. 3. Chronic pain syndrome. We will continue home dose medications. 4. DVT prophylaxis with Lovenox. 5. Congestive heart failure. We will continue Lasix. 6. Questionable sternal cancer. I have consulted Dr. Alas, Hematology. Byron Hull MD DR: FLACO/KELLY JOB#: [id number] CC:
--- NOTE | 2018-11-28 19:13 | NUR ---
HAND-OFF: Report given to Clare MCNEILL using SBAR. All questions answered. Pt sitting in chair watching TV.
--- NOTE | 2018-11-28 19:14 | NUR ---
NURSE NOTES: Report received from OSITO Rubi. Pt A/Ox4, court of appeals judge shows SR. Pt on 2L NC, tolerating well. Pt on a regular diet. Pt ambulatory and uses restroom for excretion. Skin intact from what being told as pt refuses to have skin checked. Pt has a RAC 20g present and asymptomatic. Bed in lowest position, call light within reach. Pt currently sitting in chair comfortably and showing no signs of acute distress. Will continue to monitor and with patients plan of care.
--- NOTE | 2018-11-28 21:14 | NUR ---
TRANSFER TO FLOOR: Patient transferred to 3E. Report given to OSITO Dunne. Belongings and medication brought along with patient. Pt shows no signs of acute distress. VSS.
--- NOTE | 2018-11-28 21:15 | NUR ---
NURSE NOTES: Received report & pt from OSITO Sparks. Pt transferred from [place] via w/c. Pt able to ambulate with steady gait, a&ox4, on O2 via NC @ 2LPM. No s/s of acute distress & no c/o pain at this time. Refused skin check. Pt belongings signed & accounted for. IV site intact & S/L'd. Oriented to hospital facility. Bed in lowest position, call light within reach. Will continue to monitor.
[2018-11-29] VITALS: BP 126/62
[2018-11-29] MEDS: Albuterol/Ipratropium 3ml neb HHN SCH ×3 (01:15→13:21)
[2018-11-29 04:00] VITALS: BP 142/68
[2018-11-29] MEDS: HYDROcodone/Acetamin 10/325 tab ORAL PRN ×2 (05:11→13:42)
[2018-11-29] MEDS ORDERED: Sennosides 8.6mg tab ORAL PRN (07:00)
--- NOTE | 2018-11-29 07:16 | NUR ---
HAND-OFF: Report given to Luis Lee RN. Pt in stable condition. Addendum: 11/29/18 at 0736 by Vibha Fernandez RN CORRECTION: Report given to OSITO Chisholm. Addendum: 11/29/18 at 0743 by Vibha Fernandez RN CORRECTION: Report given to Thad Govea RN.
--- NOTE | 2018-11-29 08:05 | NUR ---
NURSE NOTES: received report from OSITO Dunne. alert, verbally responsive. no respiratory distress noted. no c/o pain at this time. IV RAC saline lock intact. bed in the lowest position. call light within reach, will continue to monitor.
[2018-11-29 08:06] LABS: HEMATOCRIT 33.2 % (42.0-52.0); HEMOGLOBIN 10.8 G/DL (14.2-18.0); MEAN CORPUSCULAR VOLUME 87 FL (80-99); PLATELET COUNT 323 K/UL (150-450); RED BLOOD COUNT 3.81 M/UL (4.70-6.10); RED CELL DISTRIBUTION WIDTH 15.6 % (11.6-14.8); WHITE BLOOD COUNT 14.7 K/UL (4.8-10.8)
[2018-11-29 08:12] LABS: ANION GAP 1 mmol/L (5-15); BLOOD UREA NITROGEN 30 mg/dL (7-18); CALCIUM 9.1 MG/DL (8.5-10.1); CARBON DIOXIDE 40 MMOL/L (21-32); CHLORIDE 98 MMOL/L (98-107); CREATININE 1.1 MG/DL (0.55-1.30); POTASSIUM 3.9 MMOL/L (3.5-5.1); SODIUM 138 MMOL/L (136-145)
[2018-11-29 08:15] VITALS: BP 111/56
--- NOTE | 2018-11-29 08:22 | Nephrology Progress Note ---
Assessment/Plan Assessment/Plan A/P 1) COPD Exca- Abx. Patient feeling better - leukocytosis could have been from steroids 2) Pain Mgmt- on hospice on home narcotics 3) DVT prophylaxsis- lovenox 4) HTN- stable 5) CHF- lasix Subjective Date patient seen: Nov 29, 2018 Time patient seen: 08:17 ROS Limited/Unobtainable: No Allergies: Coded Allergies: LISINOPRIL (Verified Allergy, Unknown, 09/29/16) Subjective Patient breathing better. No CP Objective Last 24 Hour Vital Signs Date Time Temp Pulse Resp B/P (MAP) Pulse Ox O2 Delivery O2 Flow Rate FiO2 11/29/18 08:15 98.9 83 20 111/56 (74) 99 11/29/18 07:29 Nasal Cannula 2.0 28 11/29/18 07:29 91 20 99 Nasal Cannula 2.0 28 11/29/18 07:29 98 Nasal Cannula 2.0 28 11/29/18 04:00 98.9 83 20 142/68 (92) 99 11/29/18 01:15 106 18 100 Nasal Cannula 2.0 28 11/29/18 01:15 98 18 100 Nasal Cannula 2.0 28 11/29/18 00:00 98.6 79 20 126/62 (83) 95 11/28/18 21:15 97.9 90 20 144/76 (98) 95 11/28/18 20:57 79 18 100 Nasal Cannula 2.0 28 11/28/18 20:56 78 18 100 Nasal Cannula 2.0 28 11/28/18 20:54 104 18 100 Nasal Cannula 2.0 28 11/28/18 20:48 78 18 100 11/28/18 20:47 101 18 100 Nasal Cannula 2.0 28 11/28/18 20:10 80 11/28/18 20:00 Nasal Cannula 2.0 11/28/18 20:00 98.1 80 20 114/71 (85) 100 11/28/18 17:25 81 18 100 11/28/18 16:00 74 11/28/18 16:00 97.9 71 16 115/61 (79) 100 11/28/18 16:00 Bi-pap 60.0 11/28/18 15:22 77 18 100 11/28/18 13:11 84 18 98 11/28/18 12:00 77 11/28/18 12:00 Bi-pap 60.0 11/28/18 12:00 98.7 81 20 127/70 (89) 100 11/28/18 11:10 85 18 100 11/28/18 10:22 87 18 100 Simple Mask 3.0 32 11/28/18 10:20 87 18 100 Nasal Cannula 3.0 32 11/28/18 10:20 87 18 100 Nasal Cannula 3.0 32 11/28/18 10:19 85 18 100 Room Air 3.0 32 11/28/18 08:45 82 18 100 11/28/18 08:44 88 11/28/18 08:35 86 152/69 Intake and Output 11/28/18 11/29/18 19:00 07:00 Intake Total 370 ml Output Total 600 ml 400 ml Balance -230 ml -400 ml Intake Oral 370 ml Output Urine Total 600 ml 400 ml Laboratory Tests 11/29/18 07:25: White Blood Count 14.7H, Red Blood Count 3.81L, Hemoglobin 10.8L, Hematocrit 33.2L, Mean Corpuscular Volume 87, Mean Corpuscular Hemoglobin 28.4, Mean Corpuscular Hemoglobin Concent 32.6, Red Cell Distribution Width 15.6H, Platelet Count 323, Mean Platelet Volume 4.9L, Neutrophils (%) (Auto) , Lymphocytes (%) (Auto) , Monocytes (%) (Auto) , Eosinophils (%) (Auto) , Basophils (%) (Auto) , Neutrophils % (Manual) [Pending], Lymphocytes % (Manual) [Pending], Platelet Estimate [Pending], Platelet Morphology [Pending], Sodium Level 138, Potassium Level 3.9, Chloride Level 98, Carbon Dioxide Level 40H, Anion Gap 1L, Blood Urea Nitrogen 30H, Creatinine 1.1, Estimat Glomerular Filtration Rate > 60, Glucose Level 139H, Calcium Level 9.1 Height (Feet): 5 Height (Inches): 8.00 Weight (Pounds): 186 General Appearance: no apparent distress, alert EENT: normal ENT inspection Neck: normal alignment, supple Cardiovascular: normal rate, regular rhythm Respiratory/Chest: expiratory wheezing Abdomen: non tender, soft Edema: no edema noted Arm (L), no edema noted Arm (R), no edema noted Leg (L), no edema noted Leg (R), no edema noted Pedal (L), no edema noted Pedal (R), no edema noted Generalized Byron Hull MD Nov 29, 2018 08:22
[2018-11-29] MEDS ORDERED: dilTIAZem HCl CD 240mg cap ORAL SCH (09:00)
[2018-11-29] MEDS ORDERED: Furosemide 40mg tab ORAL SCH ×2 (09:00)
[2018-11-29] MEDS ORDERED: fentaNYL Destruction MISC SCH ×2 (09:00)
--- NOTE | 2018-11-29 09:16 | Pulmonology Progress Note ---
Assessment/Plan Assessment/Plan IMPRESSION: 1. Exacerbation of COPD. 2. Opioid usage. 3. Active smoker. 4. CHF. DISCUSSION: Continue steroids and empiric antibiotics. 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 DC planning Subjective Interval Events: None new Constitutional: Reports: no symptoms HEENT: Repors: no symptoms Respiratory: Reports: dry cough, shortness of breath Cardiovascular: Reports: no symptoms Gastrointestinal/Abdominal: Reports: no symptoms Genitourinary: Reports: no symptoms Allergies: Coded Allergies: LISINOPRIL (Verified Allergy, Unknown, 09/29/16) Objective Last 24 Hour Vital Signs Date Time Temp Pulse Resp B/P (MAP) Pulse Ox O2 Delivery O2 Flow Rate FiO2 11/29/18 08:51 83 11/29/18 08:51 83 111/56 11/29/18 08:15 98.9 83 20 111/56 (74) 99 11/29/18 07:40 89 18 100 Nasal Cannula 2.0 28 11/29/18 07:29 Nasal Cannula 2.0 28 11/29/18 07:29 91 20 99 Nasal Cannula 2.0 28 11/29/18 07:29 98 Nasal Cannula 2.0 28 11/29/18 04:00 98.9 83 20 142/68 (92) 99 11/29/18 01:15 106 18 100 Nasal Cannula 2.0 28 11/29/18 01:15 98 18 100 Nasal Cannula 2.0 28 11/29/18 00:00 98.6 79 20 126/62 (83) 95 11/28/18 21:15 97.9 90 20 144/76 (98) 95 11/28/18 20:57 79 18 100 Nasal Cannula 2.0 28 11/28/18 20:56 78 18 100 Nasal Cannula 2.0 28 11/28/18 20:54 104 18 100 Nasal Cannula 2.0 28 11/28/18 20:48 78 18 100 11/28/18 20:47 101 18 100 Nasal Cannula 2.0 28 11/28/18 20:10 80 11/28/18 20:00 Nasal Cannula 2.0 11/28/18 20:00 98.1 80 20 114/71 (85) 100 11/28/18 17:25 81 18 100 11/28/18 16:00 74 11/28/18 16:00 97.9 71 16 115/61 (79) 100 11/28/18 16:00 Bi-pap 60.0 11/28/18 15:22 77 18 100 11/28/18 13:11 84 18 98 11/28/18 12:00 77 11/28/18 12:00 Bi-pap 60.0 11/28/18 12:00 98.7 81 20 127/70 (89) 100 11/28/18 11:10 85 18 100 11/28/18 10:22 87 18 100 Simple Mask 3.0 32 11/28/18 10:20 87 18 100 Nasal Cannula 3.0 32 11/28/18 10:20 87 18 100 Nasal Cannula 3.0 32 11/28/18 10:19 85 18 100 Room Air 3.0 32 Intake and Output 11/28/18 11/29/18 19:00 07:00 Intake Total 370 ml Output Total 600 ml 400 ml Balance -230 ml -400 ml Intake Oral 370 ml Output Urine Total 600 ml 400 ml General Appearance: no acute distress HEENT: normocephalic Respiratory/Chest: chest wall non-tender, lungs clear Cardiovascular: normal peripheral pulses, normal rate Abdomen: normal bowel sounds, soft, non tender Microbiology Date/Time Source Procedure Growth Status 11/28/18 01:25 Blood Blood Culture - Preliminary NO GROWTH AFTER 24 HOURS Resulted 11/28/18 01:15 Blood Blood Culture - Preliminary NO GROWTH AFTER 24 HOURS Resulted Laboratory Tests 11/29/18 07:25: White Blood Count 14.7H, Red Blood Count 3.81L, Hemoglobin 10.8L, Hematocrit 33.2L, Mean Corpuscular Volume 87, Mean Corpuscular Hemoglobin 28.4, Mean Corpuscular Hemoglobin Concent 32.6, Red Cell Distribution Width 15.6H, Platelet Count 323, Mean Platelet Volume 4.9L, Neutrophils (%) (Auto) , Lymphocytes (%) (Auto) , Monocytes (%) (Auto) , Eosinophils (%) (Auto) , Basophils (%) (Auto) , Neutrophils % (Manual) [Pending], Lymphocytes % (Manual) [Pending], Platelet Estimate [Pending], Platelet Morphology [Pending], Sodium Level 138, Potassium Level 3.9, Chloride Level 98, Carbon Dioxide Level 40H, Anion Gap 1L, Blood Urea Nitrogen 30H, Creatinine 1.1, Estimat Glomerular Filtration Rate > 60, Glucose Level 139H, Calcium Level 9.1 Current Medications Medications (Trade) Dose Ordered Sig/Pascale Route PRN Reason Start Time Stop Time Status Last Admin Dose Admin Acetaminophen (Tylenol) 650 mg Q4H PRN ORAL Mild Pain (Pain Scale 1-3) 11/28/18 22:15 12/28/18 10:14 Acetaminophen/ Hydrocodone Bitart ([place] 10/325) 1 tab Q4H PRN ORAL For Pain 11/28/18 22:45 12/05/18 06:44 11/29/18 05:11 Albuterol/ Ipratropium (Albuterol/ Ipratropium) 3 ml Q6HR HHN 11/29/18 00:00 12/03/18 11:59 11/29/18 07:29 Atorvastatin Calcium (Lipitor) 10 mg BEDTIME ORAL 11/29/18 21:00 12/28/18 20:59 Budesonide/ Formoterol Fumarate (Symbicort 160/ 4.5) 1 puff BIDRT INH 11/29/18 10:00 12/29/18 09:59 11/29/18 09:14 Cefuroxime Axetil (Ceftin) 250 mg EVERY 12 HOURS ORAL 11/29/18 09:00 12/06/18 08:59 Dextrose (Dextrose 50%) 25 ml Q30M PRN IV Hypoglycemia 11/28/18 21:45 12/28/18 10:14 Dextrose (Dextrose 50%) 50 ml Q30M PRN IV Hypoglycemia 11/28/18 21:45 12/28/18 10:14 Diltiazem HCl (Cardizem CD) 240 mg DAILY ORAL 11/29/18 09:00 12/28/18 08:59 11/29/18 08:51 Enoxaparin Sodium (Lovenox) 40 mg Q24H SUBQ 11/29/18 11:00 12/28/18 10:59 Famotidine (Pepcid) 40 mg DAILY ORAL 11/29/18 09:00 12/28/18 10:14 11/29/18 08:52 Fentanyl (Duragesic) 1 patch EVERY 72 HOURS TDERMAL 11/29/18 09:00 12/06/18 08:59 Furosemide (Lasix) 40 mg EVERY 12 HOURS ORAL 11/29/18 09:00 12/28/18 10:14 11/29/18 08:52 Methadone HCl (Methadone HCl) 5 mg Q12HR ORAL 11/29/18 09:00 12/05/18 08:59 11/29/18 08:52 Miscellaneous Medication (fentaNYL Destruction) 1 ea Q72H MISC 11/29/18 09:00 12/29/18 08:59 Naloxone HCl (Narcan) 0.1 mg PRN IV Sedation scale 3 or 4 11/28/18 21:45 12/28/18 07:29 Propafenone HCl (Rythmol) 150 mg Q12HR ORAL 11/29/18 09:00 12/28/18 08:59 11/29/18 08:51 Sennosides (Senokot) 8.6 mg HSPRN PRN ORAL Constipation 11/29/18 07:00 12/28/18 06:59 Tiotropium [place] (Spiriva Inhaler) 1 puff DAILY INH 11/29/18 09:00 12/29/18 08:59 11/29/18 09:13 Ephraim Ayoub MD Nov 29, 2018 09:16
[2018-11-29] MEDS ORDERED: Enoxaparin 40mg Inj SUBQ SCH (11:00)
[2018-11-29 12:00] VITALS: BP 103/67
--- NOTE | 2018-11-29 13:13 | NUR ---
NURSE NOTES: Called [facility] to arrange for ambulance transfer home. 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 Unable to reach family member for notification of discharge. Patient stated "There is nobody to call. I rent a room and I don't want my family notified of my business"
--- NOTE | 2018-11-29 14:50 | NUR ---
NURSE NOTES: patient discharged to home via ambulance with fair condition. O2 2l.min via na. no new order. continue home medications. Dr. Hull will send a new prescription to the [address] [place]. [id number]. continue to hospice care. checked belonging with patient and obtained sign. provided dc packet. removed IV and ID band.
--- NOTE | 2018-11-30 10:45 | Discharge Summary ---
Discharge Summary Discharge Summary _ DATE OF ADMISSION: 11/28/2018 DATE OF DISCHARGE: 11/29/2018 DISCHARGED BY: Dr. Byron Hull CONSULTANTS: Dr. Richar Ayoub BRIEF HOSPITAL COURSE: Patient is a 63-year-old gentleman, well-known to [facility] with multiple admissions for chronic obstructive pulmonary disease exacerbation, patient continued to be tobacco dependent and smoking. Patient had worsening shortness of breath for the past several days. He stated he was due for an MRI at [facility] for possible sternal cancer. He called 911. He denied chest pain. There was no nausea, vomiting or diarrhea. He has medical history significant for COPD, CHF and chronic pain syndrome. On evaluation at ED, patient was diaphoretic and appeared in acute distress. At the emergency room, BiPAP was initiated. Blood work showed WBC elevated to 20, hemoglobin 13, hematocrit 40. Lactic acid was elevated to 2.7. Troponin was negative, proBNP 41. Urinalysis was negative. Urine drug screen was positive for opiates. He had an EKG done that showed sinus tachycardia with nonspecific ST to T wave changes. Chest x-ray did not show any acute disease. He was given breathing treatment and was started on steroid. He was given IV hydration 30 mL/kg. He was then admitted for acute COPD exacerbation. He was continued on nebulizer treatment and cefuroxime. He was placed on Lovenox for DVT prophylaxis. Charger Operator Helper was consulted. He was weaned off from BiPAP. He was continued on maintenance Lasix. He was given GI prophylaxis and pain management. He was given stool softeners. He was counseled against smoking. He was given Symbicort and Spiriva. Breathing improved. Leukocytosis trended down, however, could be from steroid use. Blood pressure stable. He was saturating well on nasal cannula. Due to rapid unexpected improvement in patient symptoms, he was eventually discharged home. FINAL DIAGNOSES: Acute COPD exacerbation Hypertension Chronic pain syndrome DVT prophylaxis Chronic diastolic congestive heart failure Questionable sternal cancer Active smoker DISPOSITION: DC home. DISCHARGE MEDICATIONS: Refer to Discharge Medication List. DISCHARGE INSTRUCTIONS: Follow-up in a week. I have been assigned to complete a discharge summary on this account, I was not involved with the patient's management. Leia Spangler NP Nov 30, 2018 10:45
--- NOTE | 2018-11-30 13:14 | Consultation ---
DATE OF CONSULTATION: 11/29/2018 NOTE: POOR AUDIO HEMATOLOGY/ONCOLOGY CONSULTATION CONSULTING PHYSICIAN: Maria Luz Alas M.D. REFERRING PHYSICIAN: Ephraim Adams M.D. REASON FOR CONSULTATION: Chest wall mass and anemia. HISTORY OF PRESENT ILLNESS: The patient is an extremely pleasant 63-year-old gentleman with history of extensive history of tobacco use. The patient presented to [facility] on 11/28/2018 with significant COPD exacerbation. The patient was recently at [facility] for same complaint. CT scan of chest, which demonstrated evidence of first rib/sternal lesion, concerning for severe multiple myeloma versus metastatic disease versus osteomyelitis versus other etiologies. Likely Duplex at that time was also negative for DVT. posignificant shortness of breath. The patient also has noted to be anemic with hemoglobin of 10.8. PAST MEDICAL HISTORY: History of COPD, CHF, hypertension, questionable history of chest malignancy, status post , however, I have no records. The patient was evaluated at [facility]. PAST SURGICAL HISTORY: Status post lung biopsy. SOCIAL HISTORY HISTORY: Extensive history of tobacco use. Admits to occasional alcohol use. ALLERGIES: Per medical records. . REVIEW OF SYSTEMS: HEENT: The patient has some headaches intermittently. RESPIRATORY: The patient denies any significant cough. The patient has shortness of breath. CHEST: The patient denies any chest pain. NEUROLOGIC: Nonfocal. . EXTREMITIES: 02:26 lower extremity edema. PHYSICAL EXAMINATION: GENERAL: The patient is a ill-appearing gentleman, in no acute distress. VITAL SIGNS: Blood pressure 127/50, pulse , and temperature 98.6. HEAD AND NECK: . CHEST: bases. Decreased breath sounds. CARDIAC: Regular rhythm. S1 and S2 ABDOMEN: Soft, nontender, and nondistended. EXTREMITIES: Right-sided sternal area superiorly at the juncture of attachment to the first significant tenderness as well as area of density. LABORATORY DATA: Laboratory investigation studies have been noted. The patient does have a hemoglobin of 10.8 with a white count of 14.7 and platelet count 223,000. The patient has a sodium 138, potassium of 3.9, creatinine of 1.1. Lactic acid was elevated at 03:26. Lipase was elevated at 56. ASSESSMENT AND PLAN: 1. Sternal/rib lesion metastatic disease versus osteomyelitis area is quite tender to exam. 03:44 biopsy at [facility]. The patient had at [facility]. risk of infection as well as malignancy. The patient has evidence of full-body bone scan and PET scan. biopsy of this area for sure. 2. Anemia. The patient has full anemia workup including bony lesion, iron ferritin and stool occult blood test x3 done. The patient apparently had a colonoscopy seven years ago and he got GI evaluation. The patient would like to hold off at this point in time. 3. COPD exacerbation. disposition per primary team. 4. Leukocytosis, etiology unclear with this secondary to patient's possible underlying pneumonia versus other infectious, osteomyelitis versus steroids is unclear at this point in time, and the patient does not have any to be followed on an the patient basis. CODE STATUS: The patient is Full Code. Maria Luz Alas M.D. DR: VIANEY JOB#: [id number] CC:
[2018-11-30] MEDS ORDERED: METFORMIN HCL500 M1 ORAL (17:05)
[2018-11-30] MEDS ORDERED: HYDRALAZINE HCL50 MG ORAL (17:05)
[2018-11-30] MEDS ORDERED: FAMOTIDINE20 MG ORAL (17:05)
[2018-11-30] MEDS ORDERED: LOSARTAN POTASS50 MG ORAL (17:05)
[2018-11-30] MEDS ORDERED: SYMBICORT 80-10.2 G1 IH (17:37)
[2018-11-30] MEDS ORDERED: HYDROCODON-ACE1 EA13 ORAL (17:40)
[2018-11-30] MEDS ORDERED: VENTOLIN HFA18 GM INH (17:43)
[2018-11-30] MEDS ORDERED: PROPAFENONE HC150 MG PO (17:47)
[2018-11-30] MEDS ORDERED: SPIRIVA18 MCG INH (17:49)
[2018-11-30] MEDS ORDERED: Heparin 5000 units/ml inj SUBQ SCH (21:00)
--- NOTE | 2018-11-30 23:15 | History and Physical Report ---
DATE OF ADMISSION: 11/28/2018 CHIEF COMPLAINT: Shortness of breath. 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 The patient explains he was waiting at his oncologist's office, Dr. Alas, when he suddenly had shortness of breath. His oxygen was increased to 5 liters, however, the patient felt like he could not breath. Upon arrival to the ER, the patient was in respiratory distress and was very wheezy. The patient has portable oxygen, which he has been using. He has a sternal lytic lesion concerning for metastasis that is being worked up by Dr. Alas and is scheduled for outpatient PET scan. 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 PAST SURGICAL HISTORY: Noncontributory. MEDICATIONS: Reviewed in [facility]. ALLERGIES: Lisinopril. SOCIAL HISTORY: The patient is a smoker. He drinks alcohol from time to time. No drugs. FAMILY HISTORY: Positive for hypertension. REVIEW OF SYSTEMS: A 12-point review of systems is negative except for pertinent positives as mentioned above. PHYSICAL EXAM: GENERAL: No acute distress. The patient is alert, awake, and oriented x3. The patient is on oxygen. HEENT: Normocephalic/atraumatic. NECK: Supple. No jugular venous distention. LUNGS: Clear to auscultation. However, decreased breath sounds and not much air movement bilaterally. CARDIOVASCULAR: Regular rate and rhythm. Normal S1, S2. ABDOMEN: Soft, nontender, and nondistended. EXTREMITIES: No clubbing or cyanosis. PSYCHIATRIC: Appropriate mood and affect. NEUROLOGIC: The patient can move all extremities. LABORATORY DATA: CBC shows a white count of 14.7, hemoglobin 10.8, and platelet count of 323,000. BMP, sodium 138, potassium is 3.9, chloride 98, CO2 is 40, BUN is 30, creatinine is 1.1, and glucose 139. Lactic acid is not ordered. Calcium is 9.1. Chest x-ray shows no acute process. ASSESSMENT: 1. Acute shortness of breath likely secondary to chronic obstructive pulmonary disease exacerbation. 2. Sternal lytic lesions likely metastatic lung cancer. 3. Congestive heart failure. 4. Smoker. 5. Diabetes. 6. Atrial fibrillation, not on anticoagulation. 7. Cataracts. 8. Major depressive disorder. 9. History of left upper lobe adenocarcinoma status post back surgery. PLAN: 1. The patient to be admitted to Med/Surg. 2. BiPAP as needed for shortness of breath. 3. Consult with Dr. Maria Luz Alas for Oncology, workup for sternal rib lesion, likely metastatic disease. CT-guided biopsy ordered for tomorrow morning. 4. Solu-Medrol 40 mg IV b.i.d. 5. DuoNeb lsbuuv-zem-aozmm every 6 hours. 6. Pulmonary consult with Dr. Ramirez. 7. D-dimer ordered and ABG. 8. Heparin for DVT prophylaxis. 9. Full Code. Gerard Braswell MD DR: KENYETTA JOB#: [id number] CC:
== END 2018-11-29 14:45 | disposition home or self-care (01) | DRG 191 ==
LOC: EDBD 02:03 → EMR 02:15 → 2W 02:50 → CANBEDREQ 03:26 → EDBEDREQ 06:01 → 3E 21:16
DX: J44.1 Chronic obstructive pulmonary disease with (acute) exacerbation (principal); I50.32 Chronic diastolic (congestive) heart failure; C34.90 Malignant neoplasm of unspecified part of unspecified bronchus or lung; G89.4 Chronic pain syndrome; I11.0 Hypertensive heart disease with heart failure; F11.90 Opioid use, unspecified, uncomplicated; M89.9 Disorder of bone, unspecified; D64.9 Anemia, unspecified; F17.210 Nicotine dependence, cigarettes, uncomplicated; I48.91 Unspecified atrial fibrillation; F32.9 Major depressive disorder, single episode, unspecified
CPT/HCPCS: 36415; 71045; 80048; 80053; 80307; 81003; 82550; 82553; 83605; 83690; 83880; 84484; 85007; 85025; 87040; 87081; 93005; 94640; 94660; 94664; 94760; 96365; 96366; 96375; 99291; J7620

== ENCOUNTER 2018-11-30 16:06 | Inpatient (IN) | payer MEDICARE, OTHER ==
[~2018-11-30] VITALS: Ht 177.8 cm; Wt 83.5 kg
[2018-11-30 16:15] VITALS: BP 156/80
--- NOTE | 2018-11-30 16:15 | NUR ---
ED Nurse Note: PT BROUGHT IN BY R58 FROM PCP'S OFFICE. AOX4. PT C/O SOB X 6 HOURS AGO. DYSPNEA AND SUBCLAVICULAR RETRACTIONS NOTED ON ASSESSMENT. PER EMS, BREATHING TREATMENT GIVEN EN ROUTE. AT BEDSIDE, RR16 @ 96% O2 SATURATION ON 3L. WHEEEING AND DIMINISHED LUNG SOUNDS IN ALL LOBES. RT CALLED.
--- NOTE | 2018-11-30 16:20 | NUR ---
ED Nurse Note: PER DR. NORIEGA, PT TO BE PLACED ON BIPAP. RT AT BEDSIDE.
[2018-11-30] MEDS ORDERED: Solu-MEDROL 125mg Inj IVP ONE (16:30)
[2018-11-30] MEDS ORDERED: Ipratropium 0.02% Inh Soln 2.5ml UD HHN ONE (16:30)
[2018-11-30] MEDS: Albuterol ud Inhalation HHN SCH ×3 (16:52→16:56)
--- NOTE | 2018-11-30 16:55 | NUR ---
ED Nurse Note: XRAY AT BEDSIDE
[2018-11-30] MEDS ORDERED: FAMOTIDINE20 MG ORAL (17:05)
[2018-11-30] MEDS ORDERED: LOSARTAN POTASS50 MG ORAL (17:05)
[2018-11-30] MEDS ORDERED: HYDRALAZINE HCL50 MG ORAL (17:05)
[2018-11-30] MEDS ORDERED: METFORMIN HCL500 M1 ORAL (17:05)
[2018-11-30 17:06] LABS: BASOPHILS % (AUTO) 1.3 % (0.0-2.0); EOSINOPHILS % (AUTO) 0.4 % (0.0-3.0); HEMATOCRIT 36.8 % (42.0-52.0); HEMOGLOBIN 11.7 G/DL (14.2-18.0); LYMPHOCYTES % (AUTO) 11.1 % (20.0-45.0); MEAN CORPUSCULAR VOLUME 87 FL (80-99); MONOCYTES % (AUTO) 7.7 % (1.0-10.0); NEUTROPHILS % (AUTO) 79.4 % (45.0-75.0); PLATELET COUNT 386 K/UL (150-450); RED BLOOD COUNT 4.23 M/UL (4.70-6.10); RED CELL DISTRIBUTION WIDTH 15.3 % (11.6-14.8); WHITE BLOOD COUNT 14.7 K/UL (4.8-10.8)
[2018-11-30 17:20] LABS: ANION GAP 3 mmol/L (5-15); BLOOD UREA NITROGEN 21 mg/dL (7-18); CALCIUM 9.6 MG/DL (8.5-10.1); CARBON DIOXIDE 36 MMOL/L (21-32); CHLORIDE 101 MMOL/L (98-107); CREATININE 0.9 MG/DL (0.55-1.30); POTASSIUM 3.6 MMOL/L (3.5-5.1); SODIUM 139 MMOL/L (136-145)
--- NOTE | 2018-11-30 17:25 | Diagnostic Imaging Report ---
Indication: Shortness of breath Technique: One view of the chest Comparison: 11/28/2018 Findings: Patient's chin slightly obscures the upper mediastinum and right lung apex, less so than on the prior study. The heart is upper limits normal in size. Lungs and pleural spaces are clear. Surgical dax are again demonstrated in the left midlung Impression: No acute process. Findings as noted
[2018-11-30 17:34] LABS: ALANINE AMINOTRANSFERASE 27 U/L (12-78); ALBUMIN 3.6 G/DL (3.4-5.0); ALBUMIN/GLOBULIN RATIO 1.1 (1.0-2.7); ALKALINE PHOSPHATASE 72 U/L (46-116); ASPARTATE AMINO TRANSFERASE 16 U/L (15-37); BILIRUBIN,TOTAL 0.6 MG/DL (0.2-1.0); CREATINE KINASE 70 U/L (26-308)
[2018-11-30] MEDS ORDERED: SYMBICORT 80-10.2 G1 IH (17:37)
[2018-11-30] MEDS ORDERED: HYDROCODON-ACE1 EA13 ORAL (17:40)
--- NOTE | 2018-11-30 17:40 | NUR ---
ED Nurse Note: PT OFF OF BIPAP. DR NORIEGA AT BEDSIDE. PT OKAY TO BE OFF OF BIPAP PER DR NORIEGA AND PLACED ON 4L O2 VIA NASAL CANNULA. RR14 @ 100% O2 SATURATION.
[2018-11-30] MEDS ORDERED: VENTOLIN HFA18 GM INH (17:43)
[2018-11-30] MEDS ORDERED: PROPAFENONE HC150 MG PO (17:47)
[2018-11-30] MEDS ORDERED: SPIRIVA18 MCG INH (17:49)
--- NOTE | 2018-11-30 18:12 | NUR ---
ED Nurse Note: URINE COLLECTED AND SENT TO LAB.
[2018-11-30 18:15] VITALS: BP 150/79
[2018-11-30 18:30] LABS: APPEARANCE,URINE CLEAR; BILIRUBIN, URINE NEGATIVE (NEGATIVE); GLUCOSE, URINE (UA) NEGATIVE (NEGATIVE); KETONES,URINE 1+ (NEGATIVE); LEUKOCYTE ESTERASE ,URINE 1+ (NEGATIVE); NITRITE,URINE NEGATIVE (NEGATIVE); PH,URINE 7 (4.5-8.0); PROTEIN,URINE 1+ (NEGATIVE); UROBILINOGEN,URINE 4 MG/DL (0.0-1.0)
[2018-11-30] MEDS ORDERED: Piperacillin/Tazobactam 3.375 GM in NS 110 ML IVPB ONE (18:30)
[2018-11-30] MEDS ORDERED: Lidocaine 1% Plain 30 ml INJ PRN (18:30)
--- NOTE | 2018-11-30 18:31 | Emergency Room Report ---
History of Present Illness General Chief Complaint: Dyspnea/Respdistress Source: Patient, Significant Other, Medical Record Present Illness HPI Patient was discharged yesterday after being hospitalized. He required BiPAP but then got better quickly. He still is wheezing and is short of breath. He just received breathing treatments and states he needs BIPAP again. He denies fever, productive cough. Not taking prednisone. Never intubated but this is one of his worst attacks. No calf pain. Slight edema. According to his PMD, he has a lesion which need biopsy. No fevers, chills, chest pain, palpitations, nausea, vomiting, diarrhea, dysuria , abdominal pain, depression, visual changes, headache. Discharge dx 11/29/18: Acute COPD exacerbation Hypertension Chronic pain syndrome DVT prophylaxis Chronic diastolic congestive heart failure Questionable sternal cancer Active smoker Allergies: Coded Allergies: LISINOPRIL (Verified Allergy, Unknown, 09/29/16) Patient History Past Medical History: see triage record, old chart reviewed Social History: Reports: smoking Social History Narrative with sig other Reviewed Nursing Documentation: PMH: Agreed; PSxH: Agreed Nursing Documentation-PMH Past Medical History: No History, Except For Hx Cardiac Problems: Yes Hx Hypertension: Yes Hx Asthma: Yes Hx COPD: Yes Hx Cancer: Yes - lung Hx Gastrointestinal Problems: Yes Hx Neurological Problems: No Review of Systems All Other Systems: negative except mentioned in HPI Physical Exam Vital Signs Date Time Temp Pulse Resp B/P (MAP) Pulse Ox O2 Delivery O2 Flow Rate FiO2 11/30/18 16:11 98.2 88 18 146/73 97 Nasal Cannula 5.0 11/30/18 16:30 30 Sp02 EP Interpretation: reviewed, abnormal - Interpreted as low by me General Appearance: alert, GCS 15, mild distress, Chronically Ill Head: normocephalic Eyes: bilateral eye normal inspection, bilateral eye PERRL ENT: moist mucus membranes Neck: supple Respiratory: no retraction, respiratory distress, accessory muscle use, wheezing, expiration, inspiration Cardiovascular #1: regular rate, rhythm Cardiovascular #2: 2+ radial (R) Gastrointestinal: normal inspection, non tender, no mass, non-distended, decreased bowel sounds Genitourinary: no CVA tenderness Musculoskeletal: back normal, normal range of motion, no calf tenderness, Tj 's Sign negative Neurologic: alert, oriented x3, grossly normal Psychiatric: depressed affect Skin: warm/dry, cyanosis Procedures Critical Care Time Critical Care Time Total Critical Care Time: 30 min bedside evaluation and treatment excludes procedures (EKG). Reason for critical care: Respiratory failure Possible complications: hypotension, hypertension, [place], shock, arrhythmias, metabolic acidosis, end organ damage, respiratory failure. Interventions: BiPAP, breathing treatments, antibiotics Course: Patient presented with respiratory distress and respiratory failure. BiPAP begun immediately with respiratory treatments. Elevated white count and antibiotics begun. Patient improved and able to tolerate being off of BiPAP however still significant respiratory distress. Evaluated by private doctor in emergency department. Admitted to stepdown unit. Consultations: nursing staff, respiratory therapy, family, private physician Performed by: Dr. Naranjo Tolerated well condition = serious Medical Decision Making Diagnostic Impression: Primary Impression: Respiratory failure Qualified Codes: J96.01 - Acute respiratory failure with hypoxia; J96.02 - Acute respiratory failure with hypercapnia Additional Impressions: Bronchospasm COPD exacerbation ER Course Patient barely moving air with shortness of breath. Differential includes respiratory failure, pneumonia, COPD exacerbation, coronary embolus amongst others. Right now is requesting BiPAP. Patient will be given slight Medrol and breathing treatments with BiPAP. Evaluation will be with blood cultures, EKG, chest x-ray and labs. The patient doesn't turnaround he made to be intubated. Unable to do EKG initially. CXR no infiltrate. WBC elevated. Improved on BIPAP. CO2 now 29. Antibiotics begun for elevated WBC. Seen by Dr. Braswell in ED. Able to tolerate being off BiPAP. Admit SDU. Laboratory Tests Test 11/30/18 16:45 11/30/18 18:16 11/30/18 19:04 White Blood Count 14.7 K/UL (4.8-10.8) H Red Blood Count 4.23 M/UL (4.70-6.10) L Hemoglobin 11.7 G/DL (14.2-18.0) L Hematocrit 36.8 % (42.0-52.0) L Mean Corpuscular Volume 87 FL (80-99) Mean Corpuscular Hemoglobin 27.7 PG (27.0-31.0) Mean Corpuscular Hemoglobin Concent 31.9 G/DL (32.0-36.0) L Red Cell Distribution Width 15.3 % (11.6-14.8) H Platelet Count 386 K/UL (150-450) Mean Platelet Volume 4.8 FL (6.5-10.1) L Neutrophils (%) (Auto) 79.4 % (45.0-75.0) H Lymphocytes (%) (Auto) 11.1 % (20.0-45.0) L Monocytes (%) (Auto) 7.7 % (1.0-10.0) Eosinophils (%) (Auto) 0.4 % (0.0-3.0) Basophils (%) (Auto) 1.3 % (0.0-2.0) Prothrombin Time 10.1 SEC (9.30-11.50) Prothrombin Time INR 1.0 (0.9-1.1) PTT 23 SEC (23-33) D-Dimer < 0.19 mg/L FEU Sodium Level 139 MMOL/L (136-145) Potassium Level 3.6 MMOL/L (3.5-5.1) Chloride Level 101 MMOL/L (98-107) Carbon Dioxide Level 36 MMOL/L (21-32) H Anion Gap 3 mmol/L (5-15) L Blood Urea Nitrogen 21 mg/dL (7-18) H Creatinine 0.9 MG/DL (0.55-1.30) Estimate Glomerular Filtration Rate > 60 mL/min (>60) Glucose Level 98 MG/DL (74-106) Lactic Acid Level 1.30 mmol/L (0.4-2.0) Calcium Level 9.6 MG/DL (8.5-10.1) Total Bilirubin 0.6 MG/DL (0.2-1.0) Aspartate Amino Transferase (AST) 16 U/L (15-37) Alanine Aminotransferase (ALT) 27 U/L (12-78) Alkaline Phosphatase 72 U/L (46-116) Total Creatine Kinase 70 U/L (26-308) Troponin I 0.007 ng/mL (0.000-0.056) Pro-B-Type Natriuretic Peptide 112 pg/mL (0-125) Total Protein 6.9 G/DL (6.4-8.2) Albumin 3.6 G/DL (3.4-5.0) Globulin 3.3 g/dL Albumin/Globulin Ratio 1.1 (1.0-2.7) Urine Color Yellow Urine Appearance Clear Urine pH 7 (4.5-8.0) Urine Specific [place] 1.010 (1.005-1.035) Urine Protein 1+ (NEGATIVE) H Urine Glucose (UA) Negative (NEGATIVE) Urine Ketones 1+ (NEGATIVE) H Urine Blood 1+ (NEGATIVE) H Urine Nitrite Negative (NEGATIVE) Urine Bilirubin Negative (NEGATIVE) Urine Urobilinogen 4 MG/DL (0.0-1.0) H Urine Leukocyte Esterase 1+ (NEGATIVE) H Urine RBC 2-4 /HPF (0 - 0) H Urine WBC 0-2 /HPF (0 - 0) Urine Squamous Epithelial Cells Occasional /LPF Urine Bacteria Few /HPF (NONE) Arterial Blood pH 7.391 (7.350-7.450) Arterial Blood Partial Pressure CO2 54.5 mmHg (35.0-45.0) H Arterial Blood Partial Pressure O2 104.8 mmHg (75.0-100.0) H Arterial Blood HCO3 32.3 mmol/L (22.0-26.0) H Arterial Blood Oxygen Saturation 97.5 % (95-100) Arterial Blood Base Excess 6.1 (-2-2) H Siva Test Positive Microbiology Date/Time Source Procedure Growth Status 11/30/18 16:45 Nasal Nares Influenza Types A,B Antigen (TIGIST) - Final Complete EKG Diagnostic Results Rate: normal Rhythm: NSR ST Segments: no acute changes - low voltage Rhythm Strip Diag. Results EP Interpretation: yes Rhythm: NSR, no PVC's, no ectopy Chest X-Ray Diagnostic Results Chest X-Ray Diagnostic Results : Chest X-Ray Ordered: Yes # of Views/Limited/Complete: 1 View Indication: Shortness of Breath EP Interpretation: Yes Interpretation: no effusion, no pneumothorax, other - COPD and pulm HTN Impression: Other Electronically Signed by: Electronically signed by Gerard Naranjo MD Last Vital Signs Date Time Temp Pulse Resp B/P (MAP) Pulse Ox O2 Delivery O2 Flow Rate FiO2 11/30/18 21:06 91 18 99 Facial 25 11/30/18 19:52 98.3 150/79 11/30/18 18:15 3.0 Status: improved Disposition: ADMITTED INPATIENT Condition: Serious Referrals: NOT CHOSEN IPA/,REFERRING (PCP) Gerard Naranjo MD Nov 30, 2018 18:31
[2018-11-30 18:32] LABS: COLOR,URINE YELLOW
--- NOTE | 2018-11-30 18:40 | NUR ---
ED Nurse Note: RT AT BEDSIDE. PT PLACED BACK ON BIPAP.
[2018-11-30] MEDS ORDERED: Albuterol/Ipratropium 3ml neb HHN PRN (18:44)
--- NOTE | 2018-11-30 18:47 | NUR ---
RESPIRATORY NOTE: Received pt in ED on BiPAP 15/, backup rate 16, 25%. Pt on a Facial mask, skin intact, no redness/breakdowns noted. Foam tape applied on pt's nosebridge/cheeks/chin to prevent any mask irritations. Pt alert/awake, follows commands. B/S pranav. diminished, nonproductive cough. BiPAP plugged into red outlet. Ptcomfortable on current settings, denies SOB/chest pain at this time. Will continue plan of care.
--- NOTE | 2018-11-30 18:49 | History & Physical ---
History and Physical History & Physicial dictated #[id number] Gerard Braswell MD Nov 30, 2018 18:49
--- NOTE | 2018-11-30 19:51 | NUR ---
ED Nurse Note: [facility] CALLED FOR PT TRANSFER. REPORT GIVEN TO OSITO LEUNG. RECEIVING RN REQUESTING 30 MORE MINUTES TO PREPARE ROOM FOR PT. WILL TRANSFER PT AT THAT TIME.
--- NOTE | 2018-11-30 20:22 | NUR ---
ED Nurse Note: PT TAKEN UP TO [facility] ON RETAIL ANALYTICS MANAGER AND ALL BELONGINGS ACCOMPANIED BY PRIMARY RN AND EMT.
[2018-11-30 21:00] VITALS: BP 147/81
[2018-11-30] MEDS: Heparin 5000 units/ml inj SUBQ SCH (21:00)
--- NOTE | 2018-11-30 21:00 | NUR ---
NURSE NOTES: BEDSIDE REPORT RECEIVED FROM OSITO ARANA FROM ER. PT IS X3-4, HIGHLY AGITATED, HARASSING STAFF MEMBERS. CLIENT SERVICE ADMINISTRATOR SHOWING NSR. BIPAP 15/5, FIO2 25%; SATING 100. PT IS AMBULATORY. SKIN INTACT. RAC 20 ASYMPTOMATIC. BED IS LOCKED IN LOWEST POSITION, SR X3, CALL GREEN W/ IN REACH, BED ALARM ON. WILL CONTINUE TO MONITOR AND FOLLOW W/ PLAN OF CARE.
[2018-11-30] MEDS: HYDROcodone/Acetamin 10/325 tab ORAL PRN (23:50)
[2018-11-30] MEDS: HydrALAZINE 50mg tab ORAL SCH (23:51)
[2018-12-01] VITALS: BP 150/84
--- NOTE | 2018-12-01 00:09 | NUR ---
NURSE NOTES: PT IS VISIBLY AGITATED, SECURITY HAS BEEN CALLED, WALKING UP TO NURSES STATION DEMANDING NAMES, AND THE NUMBER TO SOMEONE OF A NAME THAT I CANNOT MAKE OUT. PT IS RAISING HIS VOICE IN THE HALLWAY, USING CURSE WORDS, DISTURBING OTHER PTS.
--- NOTE | 2018-12-01 01:00 | NUR ---
NURSE NOTES: SECURITY CAME AND SPOKE W/ PT AND IS NOW CURRENTLY IN ROOM, YELLING BY HIMSELF. HE DOES NOT APPEAR TO BE A THREAT TO STAFF OR HIMSELF AT THIS TIME. WILL CONTINUE TO MONITOR AND CONTINUE PLAN OF CARE.
[2018-12-01 04:00] VITALS: BP 125/58
[2018-12-01] MEDS: HydrALAZINE 50mg tab ORAL SCH ×3 (05:56→23:10)
[2018-12-01 05:59] LABS: ANION GAP 1 mmol/L (5-15); BLOOD UREA NITROGEN 24 mg/dL (7-18); CALCIUM 9.5 MG/DL (8.5-10.1); CARBON DIOXIDE 35 MMOL/L (21-32); CHLORIDE 102 MMOL/L (98-107); POTASSIUM 4.1 MMOL/L (3.5-5.1); SODIUM 138 MMOL/L (136-145)
[2018-12-01] MEDS: Albuterol 90mcg Inhaler 8gm INH SCH ×3 (06:00→13:37)
--- NOTE | 2018-12-01 07:16 | NUR ---
HAND-OFF: Report given to OSITO SHELDON.
[2018-12-01 08:00] VITALS: BP 122/60
--- NOTE | 2018-12-01 08:00 | NUR ---
NURSE NOTES: Received pt from OSITO Wall. PT IS alert and oriented X3-4. 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 VSS. on 2L nasal cannula- SATING 100. PT IS AMBULATORY. SKIN INTACT. RAC 20 ASYMPTOMATIC. BED IS LOCKED IN LOWEST POSITION, CALL GREEN W/ IN REACH, BED ALARM ON. WILL CONTINUE TO MONITOR AND FOLLOW W/ PLAN OF CARE.
[2018-12-01] MEDS ORDERED: Solu-MEDROL 40mg Inj IVP SCH (09:00)
[2018-12-01] MEDS: Furosemide 40mg tab ORAL SCH (09:00)
[2018-12-01] MEDS: Heparin 5000 units/ml inj SUBQ SCH ×2 (09:00→20:32)
[2018-12-01] MEDS: Losartan 50mg tab ORAL SCH (09:00)
[2018-12-01] MEDS: HYDROcodone/Acetamin 10/325 tab ORAL PRN ×2 (09:58→18:33)
--- NOTE | 2018-12-01 10:58 | NUR ---
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 The heart is upper limits normal in size. Lungs and pleural spaces are clear. Surgical dax are again demonstrated in the left midlung. IS:SOLU-MEDROL 125mg IVP ATROVENT 500mcg HHN PROVENTIL 5mg HHN PIPERACILLIN SOD/TAZOBACTAM SOD. 110ml IVPB ADMITTED TO SDU DC PLAN: RETURN HOME
[2018-12-01 12:00] VITALS: BP 134/66
--- NOTE | 2018-12-01 14:00 | NUR ---
NURSE NOTES: Pt back from CT- unable to be done since pt in too much pain. MD made aware. will continue plan of care.
[2018-12-01 16:00] VITALS: BP 125/60
--- NOTE | 2018-12-01 16:35 | Consultation ---
Consult Note Assessment/Plan DICT # [id number] Kermit Ramirez MD Dec 01, 2018 16:35
--- NOTE | 2018-12-01 18:42 | Internal Med Progress Note ---
Subjective Physician Name Gerard Braswell Attending Physician Gerard Braswell MD Current Medications Medications (Trade) Dose Ordered Sig/Pascale Route PRN Reason Start Time Stop Time Status Last Admin Dose Admin Acetaminophen (Tylenol) 650 mg Q4H PRN ORAL Mild Pain (Pain Scale 1-3) 11/30/18 18:42 12/30/18 18:41 Acetaminophen/ Hydrocodone Bitart ([place] 10/325) 1 tab Q6H PRN ORAL For Pain 11/30/18 22:30 12/07/18 22:29 12/01/18 18:33 Albuterol/ Ipratropium (Albuterol/ Ipratropium) 3 ml Q6H PRN HHN Shortness of Breath 11/30/18 18:44 12/05/18 18:43 Albuterol/ Ipratropium (Albuterol/ Ipratropium) 3 ml Q6HRT HHN 12/01/18 19:00 12/06/18 18:59 Atorvastatin Calcium (Lipitor) 10 mg BEDTIME ORAL 12/01/18 21:00 12/31/18 20:59 Dextrose (Dextrose 50%) 25 ml Q30M PRN IV Hypoglycemia 11/30/18 18:42 12/30/18 18:41 Dextrose (Dextrose 50%) 50 ml Q30M PRN IV Hypoglycemia 11/30/18 18:42 12/30/18 18:41 Famotidine (Pepcid) 20 mg DAILY ORAL 12/01/18 09:00 12/31/18 08:59 12/01/18 09:00 Fentanyl (Duragesic) 1 patch EVERY 72 HOURS TDERMAL 12/02/18 09:00 12/09/18 08:59 Furosemide (Lasix) 40 mg DAILY ORAL 12/01/18 09:00 12/31/18 08:59 12/01/18 09:00 Heparin Sodium (Porcine) (Heparin 5000 units/ml) 5,000 units EVERY 12 HOURS SUBQ 11/30/18 21:00 12/30/18 20:59 Hydralazine HCl (Apresoline) 50 mg EVERY 8 HOURS ORAL 11/30/18 22:45 12/30/18 22:44 12/01/18 13:31 Losartan Potassium (Cozaar) 100 mg DAILY ORAL 12/01/18 09:00 12/31/18 08:59 Methadone HCl (Methadone HCl) 5 mg Q12HR ORAL 12/01/18 09:00 12/08/18 08:59 12/01/18 09:00 Miscellaneous Medication (fentaNYL Destruction) 1 ea Q72H MISC 12/02/18 09:00 01/01/19 08:59 Naloxone HCl (Narcan) 0.1 mg PRN IV Sedation scale 3 or 4 12/02/18 09:00 12/31/18 08:59 Prednisone (predniSONE) 40 mg DAILY ORAL 12/02/18 09:00 01/01/19 08:59 Propafenone HCl (Rythmol) 150 mg TID ORAL 12/01/18 09:00 12/31/18 08:59 12/01/18 18:34 Salmeterol Xinafoate/ Fluticasone (Advair 250/50 Diskus) 1 puffs BIDRT INH 12/01/18 22:00 12/31/18 21:59 Tiotropium [place] (Spiriva Inhaler) 2 puff DAILY INH 12/01/18 09:00 12/31/18 08:59 12/01/18 09:44 Allergies: Coded Allergies: LISINOPRIL (Verified Allergy, Unknown, 09/29/16) Subjective less SOB no CP less cough 12 pt ROS neg except above positives Objective Last Vital Signs Date Time Temp Pulse Resp B/P (MAP) Pulse Ox O2 Delivery O2 Flow Rate FiO2 12/01/18 18:34 79 12/01/18 16:00 2.0 12/01/18 16:00 Nasal Cannula 12/01/18 16:00 98.0 26 125/60 (81) 100 12/01/18 13:28 28 Laboratory Tests Test 11/30/18 19:04 12/01/18 03:20 Arterial Blood pH 7.391 (7.350-7.450) Arterial Blood Partial Pressure CO2 54.5 mmHg (35.0-45.0) H Arterial Blood Partial Pressure O2 104.8 mmHg (75.0-100.0) H Arterial Blood HCO3 32.3 mmol/L (22.0-26.0) H Arterial Blood Oxygen Saturation 97.5 % (95-100) Arterial Blood Base Excess 6.1 (-2-2) H Siva Test Positive Sodium Level 138 MMOL/L (136-145) Potassium Level 4.1 MMOL/L (3.5-5.1) Chloride Level 102 MMOL/L (98-107) Carbon Dioxide Level 35 MMOL/L (21-32) H Anion Gap 1 mmol/L (5-15) L Blood Urea Nitrogen 24 mg/dL (7-18) H Creatinine 1.0 MG/DL (0.55-1.30) Estimat Glomerular Filtration Rate > 60 mL/min (>60) Glucose Level 175 MG/DL (74-106) H Calcium Level 9.5 MG/DL (8.5-10.1) Microbiology Date/Time Source Procedure Growth Status 11/30/18 16:45 Nasal Nares Influenza Types A,B Antigen (TIGIST) - Final Complete 11/30/18 21:00 Rectum Received Intake and Output 11/30/18 12/01/18 19:00 07:00 Intake Total 350 ml Balance 350 ml Intake Oral 240 ml IV Total 110 ml # Voids 1 4 Objective Gen - on NC HEENT - NC/AT CVS - RRR. nl S1, S2 LUNGS - decreased BS B/L. no wheezing ABD - NT/ND EXT - no C/C/E Assessment/Plan Assessment/Plan 1. COPD Exacerbation 2. Sternal lesion concerning for metastasis 3. HTN 4. HLD 5. Smoker 6. h/o Lung cancer s/p VATS Plan 1. transfer to tele 2. BIPAP PRN and QHS 3. Solumedrol IV 4. Couldnt tolerate CT guided sternum Bx bc of pain. needs to be rescheduled with anesthesia 5. Pulmonary recs appreciated 6. O2 7. Patient wants to go home tomorrow Gerard Braswell MD Dec 01, 2018 18:42
--- NOTE | 2018-12-01 19:15 | NUR ---
NURSE NOTES: Received report from Dianne Rn, pt. sitting in chair at bedside, A/O x's4- able to make needs known, no signs and symptoms of acute cardiac or respiratory distress noted, bed in lowest position and call light within easy reach, bed alarm on, side rails up x's 3- safety brakes engaged, pt. appears to be sating well on 2L NC at 97%- no distress noted, comfort measures provided, urinal at bedside and within easy reach, Rt. AC 20G- IV intact and patent, safety measures continued, will continue with plan of care.
--- NOTE | 2018-12-01 19:18 | NUR ---
HAND-OFF: Report given to OSITO Jefferson.
[2018-12-01] MEDS: Albuterol/Ipratropium 3ml neb HHN SCH (19:37)
[2018-12-01 20:00] VITALS: BP 124/93
[2018-12-01] MEDS: Wixela 250/50 Inhaler - 60 dose INH SCH (21:31)
--- NOTE | 2018-12-01 22:00 | NUR ---
NURSE NOTES: report given to Lexis RN, pt. transferred to Telemetry room 202-1- pt. remains stable and no signs and symptoms of distress noted.
--- NOTE | 2018-12-01 22:30 | Consultation ---
DATE OF CONSULTATION: 12/01/2018 PULMONARY CONSULTATION CONSULTING PHYSICIAN: Kermit Ramirez M.D. REFERRING PHYSICIAN: Gerard Braswell M.D. REASON FOR CONSULTATION: Shortness of breath. HISTORY OF PRESENT ILLNESS: The patient is a very unfortunate male who was discharged from [facility] on 11/24/2018. He has a history of COPD; lung cancer in the past, status post left upper lobe lobectomy; current daily smoker; pulmonary hypertension; CHF; paroxysmal atrial fibrillation; diabetes; hypertension; and hyperlipidemia, recently admitted with a COPD exacerbation, noted to have an anterior sternal bony abnormalities concerning for possible myeloma versus other destructive process. He was discharged home. He was seen by Oncology, being worked up for myeloma. MRI chest was ordered at time, which he was unable to do. Nonetheless, he presented to [facility] with shortness of breath, cough, congestion, generalized malaise, and chest pain. No fevers, chills, or other complaints. PAST MEDICAL HISTORY: 1. COPD. 2. Home O2 use. 3. Lung cancer, non-small cell lung cancer/adenocarcinoma, status post VATS resection of left upper lobe. 4. Pulmonary hypertension. 5. CHF. 6. Hypertension. 7. Atrial fibrillation. 8. Diabetes. 9. New lytic lesion of sternal wall of anterior sternum. PAST SURGICAL HISTORY: 1. Left upper lobe VATS wedge resection. 2. Prior tracheostomy. ALLERGIES: Lisinopril. MEDICATIONS: Prior to admission, medications reviewed. SOCIAL HISTORY: Current one pack per day smoker. No drug or alcohol use. FAMILY HISTORY: Noncontributory. REVIEW OF SYSTEMS: Negative other than history of present illness. PHYSICAL EXAMINATION: VITAL SIGNS: Temperature 91, pulse 74, blood pressure 122/60, and saturating 97% on 2 L. GENERAL: He is a well-developed and well-nourished male, in no acute distress. Awake, alert, and oriented x3. HEENT: Normocephalic and atraumatic. Oropharynx is clear with moist mucous membranes. NECK: Supple without lymphadenopathy or JVD. CHEST: Coarse breath sounds. HEART: Regular rate and rhythm. ABDOMEN: Soft, nontender, and nondistended. EXTREMITIES: No cyanosis, clubbing, or edema. ANCILLARY DATA: White count 14.7, hemoglobin 11.7, and platelet count 386,000. ABG - 7.39/54/104/32/97. INR 1. Chemistry, sodium 138, potassium 4.1, chloride 102, bicarbonate 35, BUN 24, creatinine 1, glucose 175, and calcium 9.5. Urinalysis - 1+ protein, 1+ ketones, 1+ blood, 1+ leukocyte esterase, and 4+ urobilinogen. Rapid flu is negative from the ER. Chest x-ray was unremarkable. Records from [facility] on 10/02/2018, TTE. 1. Hyperdynamic LV systolic function, EF of 75%, moderate diastolic function features consistent with pseudonormal left ventricular filling pattern with concomitant abnormal relaxation, and increased filling pressure. 2. Normal RV systolic function. 3. Estimated PA pressure of 65 consistent with severe pulmonary hypertension. 4. No significant valvular heart disease. Last CT of the chest from [facility] on 11/23/2018. 5. Changes to the sternum and right first rib resection, suspicious of myeloma. 6. Metastatic disease and osteomyelitis. 7. Central lobular emphysema. ASSESSMENT: The patient is a very unfortunate 63-year-old male smoker with a history of chronic obstructive pulmonary disease; prior lung cancer, status post left upper lobe resection of an adenocarcinoma; new finding of sternal abnormality concerning for myeloma versus other process; pulmonary hypertension; CHF; paroxysmal atrial fibrillation; diabetes; hypertension; and hyperlipidemia, admitted with persistent shortness of breath, likely secondary to an exacerbation of COPD. PROBLEM LIST: 1. COPD with acute exacerbation. 2. Acute on chronic hypercapnic respiratory failure. 3. Lung cancer, status post left upper lobe resection. 4. Abnormal sternum and bony changes on CT chest, concerning for myeloma versus other process. 5. Pulmonary hypertension. 6. CHF. 7. Diabetes. 8. Hypertension. 9. Hyperlipidemia. 10. Current daily smoker. TREATMENT PLAN: 1. Optimize pulmonary hygiene/mobilize as tolerated. 2. BiPAP 12/5 at bedtime and p.r.n. 3. Titrate on FiO2 to keep saturations greater than 90%. 4. Continue Advair and Spiriva. 5. Lzitl-tsr-whgvp and p.r.n. DuoNebs. 6. Prednisone 40 mg p.o. daily and taper. 7. Observe off antibiotics. 8. Monitor volumes and renal function, continue p.o. Lasix. 9. Nicotine patch. 10. Continue to discuss tobacco cessation. 11. The patient needs further workup of sternal abnormality, possible CT-guided biopsy. He refuses to lie flat and is requesting this to be done under anesthesia. I will have to check with Radiology to see if this is possible. 12. Aspiration precautions. 13. DVT prophylaxis, heparin subcutaneous. Dr. Braswell, thank you for allowing me to assist in the care of your patient. If I may be of any assistance, please do not hesitate to ask. Kermit Ramirez M.D. DR: JAMIE JOB#: [id number] CC:
[2018-12-02] VITALS: BP 136/66
[2018-12-02] MEDS: Albuterol/Ipratropium 3ml neb HHN SCH ×3 (01:00→13:36)
[2018-12-02 04:00] VITALS: BP 144/73
[2018-12-02] MEDS: HYDROcodone/Acetamin 10/325 tab ORAL PRN (05:06)
[2018-12-02] MEDS: HydrALAZINE 50mg tab ORAL SCH ×2 (05:06→14:00)
--- NOTE | 2018-12-02 06:40 | NUR ---
NURSE NOTES: pt stable no acute distress during my shift, all needs met during my shift safety precaution in place. will endorse pt to incoming nurse.
--- NOTE | 2018-12-02 07:41 | NUR ---
NURSE NOTES: Pt waking around the unit asking for breakfast, pt Ox4 seems restless, pt was walked to back to room, pt in chair eating breakfast, call light next to pt, pt makes needs known, pt denies pain, pt on 2 liters NC which he carries where he goes, pt stated he wants to go home today and come back tuesday for his procedure, told pt not sure if that is possible that he might have to stay, no s/s of distress or sob noted.
--- NOTE | 2018-12-02 07:53 | NUR ---
HAND-OFF: Report given to mati Ag.
[2018-12-02 08:00] VITALS: BP 123/67
[2018-12-02] MEDS ORDERED: Naloxone 0.4mg/ml Inj IV PRN (09:00)
[2018-12-02] MEDS ORDERED: fentaNYL Destruction MISC SCH (09:00)
[2018-12-02] MEDS: Furosemide 40mg tab ORAL SCH (09:08)
[2018-12-02] MEDS: Losartan 50mg tab ORAL SCH (09:08)
[2018-12-02] MEDS: Heparin 5000 units/ml inj SUBQ SCH (09:10)
[2018-12-02] MEDS: Wixela 250/50 Inhaler - 60 dose INH SCH (09:22)
[2018-12-02 12:00] VITALS: BP 132/73
--- NOTE | 2018-12-02 13:44 | Discharge Summary ---
Discharge Summary Hospital Course Date of Admission Nov 30, 2018 at 16:50 Date of Discharge Admitting Diagnosis respiratory failure HPI Tanvir Mcgregor is a 63 year old male who was admitted on Nov 30, 2018 at 16:50 for Respiratory Failure Hospital Course Last 24 Hour Vital Signs Date Time Temp Pulse Resp B/P (MAP) Pulse Ox O2 Delivery O2 Flow Rate FiO2 12/02/18 10:28 98.9 12/02/18 09:27 83 12/02/18 09:26 83 20 99 Nasal Cannula 2.0 28 12/02/18 09:24 82 20 97 Nasal Cannula 2.0 28 12/02/18 09:23 82 20 98 Nasal Cannula 2.0 28 12/02/18 09:22 81 20 97 Nasal Cannula 2.0 28 12/02/18 09:08 123/67 12/02/18 08:26 25 12/02/18 08:24 Nasal Cannula 2.0 12/02/18 08:00 98.9 84 20 123/67 (85) 100 12/02/18 07:55 83 18 100 Nasal Cannula 2.0 28 12/02/18 07:55 81 12/02/18 07:47 Nasal Cannula 2.0 28 12/02/18 07:47 98 Nasal Cannula 2.0 28 12/02/18 07:46 83 18 99 Nasal Cannula 2.0 28 12/02/18 05:06 144/73 12/02/18 04:00 Nasal Cannula 2.0 12/02/18 04:00 77 12/02/18 04:00 98.6 75 22 144/73 (96) 97 12/02/18 04:00 25 12/02/18 03:05 Nasal Cannula 12/02/18 03:05 Nasal Cannula 12/02/18 00:00 98.0 79 23 136/66 (89) 98 12/02/18 00:00 64 12/02/18 00:00 Nasal Cannula 2.0 12/02/18 00:00 25 12/01/18 23:10 134/67 12/01/18 21:35 85 20 100 Nasal Cannula 2.0 28 12/01/18 21:33 85 20 100 Nasal Cannula 2.0 28 12/01/18 20:00 97.8 84 24 124/93 (103) 98 12/01/18 20:00 Nasal Cannula 2.0 12/01/18 20:00 92 12/01/18 20:00 2.0 12/01/18 19:39 Nasal Cannula 2.0 28 12/01/18 19:39 98 Nasal Cannula 2.0 28 12/01/18 19:37 87 18 98 Nasal Cannula 2.0 28 12/01/18 19:37 90 18 99 Nasal Cannula 2.0 28 12/01/18 19:03 98.0 12/01/18 18:34 79 12/01/18 16:00 2.0 12/01/18 16:00 Nasal Cannula 2.0 12/01/18 16:00 74 12/01/18 16:00 98.0 77 26 125/60 (81) 100 Physical Exam General: No acute distress, awake and alert HEENT: NCAT, sclera anicteric, PERRL, EOMI. Neck: Supple, no significant jugular venous distention, Lungs: Good inspiratory effort, decrease air at bases, no Wheeze or Rales. Heart: Regular rate and rhythm, normal S1/S2, no murmur. Abdomen: soft, nontender, nondistended. Normoactive bowel sounds, obesity. / Rectal: Refused and deferred. Extremities: No Cyanosis , clubbing or edema. Neuro: A&O x 3, Able to move all extremities Skin: warm, no rashes or lesions Psych: Normal mood and affect Discharge Discharge Disposition Patient was discharged to Dino Blackburn MD Dec 02, 2018 13:44
[2018-12-02 13:57] VITALS: BP 132/73
[2018-12-02 14:00] VITALS: BP 132/73
--- NOTE | 2018-12-02 14:24 | NUR ---
NURSE NOTES: Pt recvd discharge order by Md Blackburn who is covering for primary Md, pt made aware, Iv removed ID band removed, aftercare plan given with med recon, panel monitor removed, pt received instructions to see [facility] [employer] [facility] for follow up on tuesday. Pt left with girlfriend via taxi, taken down by JOHN
--- NOTE | 2018-12-03 05:15 | Discharge Summary ---
DATE OF ADMISSION: 11/30/2018 DATE OF DISCHARGE: 12/02/2018 HISTORY OF PRESENT ILLNESS: This is a 63-year-old -[place] gentleman with past medical history significant for COPD; chronic smoker; lung cancer with a [id number] lung adenocarcinoma, status post VATS resection of the left upper lobe; pulmonary hypertension; CHF; hypertension; atrial fibrillation; diabetic type 2; and new lytic lesion in the sternal wall of anterior sternum, who was presented to the hospital with complaint of shortness of breath. Shortly after initial evaluation, the patient was admitted to hospital with acute COPD exacerbation with acute on chronic hypercapnic respiratory failure. Throughout the hospital course, the patient was followed with Dr. Kermit Ramirez from [facility], who did start the patient on BiPAP. His status gradually improved and weaned off the BiPAP. He has been discharged home today to be followed by as outpatient with Dr. Maria Luz Alas as well as Dr. Braswell as outpatient. FINAL DIAGNOSES: 1. Acute COPD exacerbation. 2. Acute on chronic hypercapnic respiratory failure. 3. History of lung cancer, status post left upper lobe resection. 4. Small lytic lesion on the sternum. 5. Pulmonary hypertension. 6. CHF. 7. Diabetes type 2. 8. Hypertension. 9. Dyslipidemia. 10. Chronic smoker. MEDICATION ON DISCHARGE: Continue discharge medication list. ACTIVITY: As tolerated. DIET: Would be 1800-ADA cardiac diet. FOLLOWUP: The patient was advised to follow up with Dr. Maria Luz Alas within one week. Dino Blackburn M.D. DR: David JOB#: [id number] CC:
== END 2018-12-02 14:30 | disposition home or self-care (01) | DRG 190 ==
LOC: EDBD 16:06 → EMR 16:20 → 2W 16:50 → EDBEDREQ 19:49 → 2E 12-01 22:00
PROC: 5A09357 Assistance with Respiratory Ventilation, Less than 24 Consecutive Hours, Continuous Positive Airway Pressure (ICD-10-PCS; principal; 2018-11-30)
DX: J44.1 Chronic obstructive pulmonary disease with (acute) exacerbation (principal); J96.22 Acute and chronic respiratory failure with hypercapnia; E78.5 Hyperlipidemia, unspecified; F17.200 Nicotine dependence, unspecified, uncomplicated; I27.20 Pulmonary hypertension, unspecified; I50.9 Heart failure, unspecified; Z85.118 Personal history of other malignant neoplasm of bronchus and lung; Z90.2 Acquired absence of lung [part of]; M89.9 Disorder of bone, unspecified; I11.0 Hypertensive heart disease with heart failure; E11.9 Type 2 diabetes mellitus without complications; Z88.8 Allergy status to other drugs, medicaments and biological substances
CPT/HCPCS: 36415; 36600; 71045; 80048; 80053; 81003; 82550; 82803; 83605; 83880; 84484; 85025; 85379; 85610; 85730; 86710; 87040; 87081; 93005; 94640; 94660; 94760; 96365; 96374; 99291; J7620

== ENCOUNTER 2018-12-15 17:37 | Inpatient (IN) | payer MEDICARE, OTHER ==
[~2018-12-15] VITALS: Ht 172.7 cm; Wt 86.2 kg
[~2018-12-15 17:37] MED LIST changes: +LOSARTAN POTASS50 MG ORAL; +METFORMIN HCL500 M1 ORAL
[2018-12-15] MEDS ORDERED: Solu-MEDROL 125mg Inj IVP ONE (17:45)
[2018-12-15 17:50] VITALS: BP 238/120
--- NOTE | 2018-12-15 17:50 | NUR ---
ED Nurse Note: pt brought by 61 from cancer clinic due to SOB for last 1 hr. pt has COPD and asthma. per EMS, pt visited clinic for bone cancer treatment. labored, uneven breathing pattern noted. wheezing audiable. 1 breathing tx given by EMS. pt appears to be agitated and restlessness. tachycardia noted on sulfur burner. clamy skin noted. dry and scaley skin noted on both legs. re assess back skin, once pt get stable. AAO x4. on sulfur burner. will wait for the further order.
--- NOTE | 2018-12-15 18:00 | NUR ---
ED Nurse Note: RT at the bed side. pt on bi-pap. 31/01 mode. breathing tx given by RT.
[2018-12-15] MEDS ORDERED: LORazepam Inj 2mg/ml 1ml ONE (18:04)
[2018-12-15] MEDS ORDERED: UNOBMED (18:06)
--- NOTE | 2018-12-15 18:10 | NUR ---
ED Nurse Note: pt tried out of bed and agitated. RN notified to Dr. bradley. will administer ativan 1mg ivp.
--- NOTE | 2018-12-15 18:12 | Diagnostic Imaging Report ---
EXAM: XR Chest, 1 View CLINICAL HISTORY: SOB TECHNIQUE: Frontal view of the chest. COMPARISON: 11/30/2018. FINDINGS: Lungs: Bibasilar mild atelectasis/infiltrates. Pleural space: Unremarkable. No pneumothorax. Heart: Mildly prominent heart size. Mediastinum: Stable. Bones/joints: Unremarkable. IMPRESSION: Bibasilar mild atelectasis/infiltrates.
[2018-12-15] MEDS ORDERED: LORazepam Inj 2mg/ml 1ml IV ONE (18:15)
[2018-12-15 18:24] LABS: APPEARANCE,URINE CLEAR; BILIRUBIN, URINE NEGATIVE (NEGATIVE); GLUCOSE, URINE (UA) NEGATIVE (NEGATIVE); KETONES,URINE 1+ (NEGATIVE); LEUKOCYTE ESTERASE ,URINE 1+ (NEGATIVE); NITRITE,URINE NEGATIVE (NEGATIVE); PH,URINE 5 (4.5-8.0); PROTEIN,URINE NEGATIVE (NEGATIVE); UROBILINOGEN,URINE 1 MG/DL (0.0-1.0)
[2018-12-15 18:25] LABS: HEMATOCRIT 34.2 % (42.0-52.0); HEMOGLOBIN 10.9 G/DL (14.2-18.0); MEAN CORPUSCULAR VOLUME 88 FL (80-99); PLATELET COUNT 386 K/UL (150-450); RED CELL DISTRIBUTION WIDTH 15.1 % (11.6-14.8); WHITE BLOOD COUNT 19.2 K/UL (4.8-10.8)
[2018-12-15] MEDS: Albuterol ud Inhalation HHN SCH ×3 (18:25→19:21)
[2018-12-15] MEDS: Ipratropium 0.02% Inh Soln 2.5ml UD HHN SCH ×3 (18:25→19:21)
[2018-12-15 18:27] LABS: COLOR,URINE YELLOW
--- NOTE | 2018-12-15 18:44 | Emergency Room Report ---
History of Present Illness General Chief Complaint: Dyspnea/Respdistress Source: Patient, Medical Record Present Illness HPI 63-year-old male presents ED for evaluation. Brought in by EMS for shortness of breath. Was found outside of medical office today. Appeared to be in distress. Noted to be wheezing and started on breathing treatments. Patient has history of CHF and COPD. Also diagnosed with sternal cancer. Was at oncology office today prior to onset of symptoms. Was recently seen and admitted here at [facility]. Denies chest pain. Denies fevers or chills. No other aggravating relieving factors. Denies any other associated symptoms Allergies: Coded Allergies: LISINOPRIL (Verified Allergy, Unknown, 09/29/16) Patient History Past Medical History: HTN, CHF, asthma, COPD, other - cancer Past Surgical History: none Pertinent Family History: none Social History: Denies: smoking, alcohol use, drug use Immunizations: UTD Reviewed Nursing Documentation: PMH: Agreed; PSxH: Agreed Nursing Documentation-PMH Past Medical History: No History, Except For Hx Cardiac Problems: Yes Hx Hypertension: Yes Hx Asthma: Yes Hx COPD: Yes Hx Cancer: Yes Hx Gastrointestinal Problems: Yes Hx Neurological Problems: No Review of Systems All Other Systems: negative except mentioned in HPI Physical Exam Vital Signs Date Time Temp Pulse Resp B/P (MAP) Pulse Ox O2 Delivery O2 Flow Rate FiO2 12/15/18 17:40 96.6 100 20 126/81 99 Simple Mask 6.0 12/15/18 17:50 100 Sp02 EP Interpretation: reviewed, normal General Appearance: alert, GCS 15, non-toxic, moderate distress Head: normocephalic, atraumatic Eyes: bilateral eye normal inspection, bilateral eye PERRL ENT: hearing grossly normal, normal pharynx, no angioedema, normal voice Neck: full range of motion, supple/symm/no masses Respiratory: chest non-tender, crackles, speaking full sentences, wheezing Cardiovascular #1: no edema, tachycardia Cardiovascular #2: 2+ carotid (R), 2+ carotid (L), 2+ radial (R), 2+ radial (L) , 2+ dorsalis pedis (R), 2+ dorsalis pedis (L) Gastrointestinal: normal bowel sounds, non tender, soft, non-distended, no guarding, no rebound Rectal: deferred Genitourinary: normal inspection, no CVA tenderness Musculoskeletal: back normal, gait/station normal, normal range of motion, non- tender Neurologic: alert, oriented x3, responsive, motor strength/tone normal, sensory intact, speech normal Psychiatric: judgement/insight normal, memory normal, mood/affect normal, no suicidal/homicidal ideation Reflexes: 3+ bicep (R), 3+ bicep (L), 3+ tricep (R), 3+ tricep (L), 3+ knee (R) , 3+ knee (L) Skin: normal color, no rash, warm/dry, well hydrated Lymphatic: no adenopathy Procedures Critical Care Time Critical Care Time i. I feel this is a highly complex case requiring extensive working including EKG/Rhythm strip, Xray/CT/US, Blood/urine lab work, repeat exams while in ED, and administration of strong opiates/narcotics for pain control, admission to hospital or close patient follow up. Total time: 45 min bedside evaluation and treatment excludes procedures (EKG). Reason for critical care: respiratory distress. hypercapnia Possible complications: hypotension, hypertension, [place], shock, arrhythmias, metabolic acidosis, end organ damage, respiratory failure. Interventions: labs, EKG, CXR, BIPAP, breathing treatments, ABG, antibiotics Course: Patient presenting with acute onset shortness of breath. History of COPD. Sternal cancer. Started on breathing treatments and BiPAP. ABG shows acute hypercapnia with some acidosis. Chest x-ray shows bilateral atelectasis/ infiltrate. Lactate 2.6. Given antibiotics. Respiratory status improved on BiPAP Consultations: nursing staff, EMS, family Performed by: Dr Brown Tolerated well condition = serious j. because of unstable vital signs this patient had a condition that could potentially threaten life or limb. I feel this is a critical patient who required my full attention while patient was considered critical. Total Critical Care Time excluding procedures was greater than 45 minutes Medical Decision Making Diagnostic Impression: Primary Impression: Respiratory distress Additional Impression: COPD exacerbation ER Course Hospital Course 63-year-old M presenting to ED with SOB. h/o COPD Differential diagnoses include: Pneumonia, CHF exacerbation, pneumothorax, fluid overload Clinical course Patient placed on stretcher. On registered nurse cardiac with stable vitals. After initial history and physical, I ordered nebulizer treatments + BIPAP. I ordered labs, IV fluids, EKG, chest x-ray, blood cultures, UA. Labs - noted leukocytosis, hemoglobin/hematocrit stable, electrolytes okay, lactate 2.6, troponins negative EKG - sinus tachycardia, no acute ischemic changes interpreted by me CXR - bilatearl basilar infiltrates compared to recent CXR ABG shows hypercapnia with acidosis. Respiratory status improved on BiPAP. Antibiotics given. Case discussed with Dr. Umanzor and he agreed to the patient to his service for further care and support I feel this is a highly complex case requiring extensive working including EKG/ Rhythm strip, Xray/CT/US, Blood/urine lab work, repeat exams while in ED, and administration of strong opiates/narcotics for pain control, admission to hospital or close patient follow up. Diagnosis - COPD exacerbation, respiratory distress Patient admitted to SDU in serious condition Labs Test 12/15/18 17:44 12/15/18 18:00 12/15/18 18:25 12/15/18 19:10 Arterial Blood pH 7.300 (7.350-7.450) Arterial Blood Partial Pressure CO2 68.7 mmHg (35.0-45.0) Arterial Blood Partial Pressure O2 494.5 mmHg (75.0-100.0) Arterial Blood HCO3 33.1 mmol/L (22.0-26.0) Arterial Blood Oxygen Saturation 99.6 % (95-100) Arterial Blood Base Excess 5.1 (-2-2) Siva Test Positive White Blood Count 19.2 K/UL (4.8-10.8) Red Blood Count 3.90 M/UL (4.70-6.10) Hemoglobin 10.9 G/DL (14.2-18.0) Hematocrit 34.2 % (42.0-52.0) Mean Corpuscular Volume 88 FL (80-99) Mean Corpuscular Hemoglobin 28.0 PG (27.0-31.0) Mean Corpuscular Hemoglobin Concent 32.0 G/DL (32.0-36.0) Red Cell Distribution Width 15.1 % (11.6-14.8) Platelet Count 386 K/UL (150-450) Mean Platelet Volume 5.1 FL (6.5-10.1) Neutrophils (%) (Auto) % (45.0-75.0) Lymphocytes (%) (Auto) % (20.0-45.0) Monocytes (%) (Auto) % (1.0-10.0) Eosinophils (%) (Auto) % (0.0-3.0) Basophils (%) (Auto) % (0.0-2.0) Differential Total Cells Counted 100 Neutrophils % (Manual) 74 % (45-75) Lymphocytes % (Manual) 18 % (20-45) Monocytes % (Manual) 8 % (1-10) Eosinophils % (Manual) 0 % (0-3) Basophils % (Manual) 0 % (0-2) Band Neutrophils 0 % (0-8) Platelet Estimate Adequate Platelet Morphology Normal Red Blood Cell Morphology Normal Urine Color Yellow Urine Appearance Clear Urine pH 5 (4.5-8.0) Urine Specific [place] 1.015 (1.005-1.035) Urine Protein Negative (NEGATIVE) Urine Glucose (UA) Negative (NEGATIVE) Urine Ketones 1+ (NEGATIVE) Urine Blood 2+ (NEGATIVE) Urine Nitrite Negative (NEGATIVE) Urine Bilirubin Negative (NEGATIVE) Urine Urobilinogen 1 MG/DL (0.0-1.0) Urine Leukocyte Esterase 1+ (NEGATIVE) Urine RBC 0-2 /HPF (0 - 0) Urine WBC 0-2 /HPF (0 - 0) Urine Squamous Epithelial Cells Few /LPF (NONE/OCC) Urine Bacteria Few /HPF (NONE) Sodium Level 144 MMOL/L (136-145) Potassium Level 3.3 MMOL/L (3.5-5.1) Chloride Level 100 MMOL/L (98-107) Carbon Dioxide Level 31 MMOL/L (21-32) Anion Gap 14 mmol/L (5-15) Blood Urea Nitrogen 27 mg/dL (7-18) Creatinine 1.2 MG/DL (0.55-1.30) Estimat Glomerular Filtration Rate > 60 mL/min (>60) Glucose Level 156 MG/DL (74-106) Calcium Level 9.9 MG/DL (8.5-10.1) Total Bilirubin 0.3 MG/DL (0.2-1.0) Aspartate Amino Transf (AST/SGOT) 13 U/L (15-37) Alanine Aminotransferase (ALT/SGPT) 20 U/L (12-78) Alkaline Phosphatase 86 U/L (46-116) Total Creatine Kinase 53 U/L (26-308) Creatine Kinase MB 1.3 NG/ML (0.0-3.6) Creatine Kinase MB Relative Index 2.4 Troponin I 0.008 ng/mL (0.000-0.056) Pro-B-Type Natriuretic Peptide 204 pg/mL (0-125) Total Protein 8.2 G/DL (6.4-8.2) Albumin 3.8 G/DL (3.4-5.0) Globulin 4.4 g/dL Albumin/Globulin Ratio 0.9 (1.0-2.7) Lactic Acid Level 2.60 mmol/L (0.4-2.0) EKG Diagnostic Results Rate: tachycardiac Rhythm: NSR ST Segments: no acute changes ASA given to the pt in ED: No Rhythm Strip Diag. Results EP Interpretation: yes Rhythm: NSR, no PVC's, no ectopy Chest X-Ray Diagnostic Results Chest X-Ray Diagnostic Results : Chest X-Ray Ordered: Yes # of Views/Limited/Complete: 1 View Indication: Shortness of Breath EP Interpretation: Yes Interpretation: no pneumothorax, other - bilateral infiltrates Impression: Other - pneumonia Electronically Signed by: Electronically signed by Casimiro Brown MD Last Vital Signs Date Time Temp Pulse Resp B/P (MAP) Pulse Ox O2 Delivery O2 Flow Rate FiO2 12/15/18 17:57 117 20 100 Bi-pap 100 12/15/18 17:40 96.6 126/81 6.0 Status: improved Disposition: ADMITTED INPATIENT Condition: Serious Referrals: NON PHYSICIAN (PCP) Casimiro Brown MD Dec 15, 2018 18:44
[2018-12-15 18:45] LABS: ANION GAP 14 mmol/L (5-15); BLOOD UREA NITROGEN 27 mg/dL (7-18); CALCIUM 9.9 MG/DL (8.5-10.1); CARBON DIOXIDE 31 MMOL/L (21-32); CHLORIDE 100 MMOL/L (98-107); CREATININE 1.2 MG/DL (0.55-1.30); POTASSIUM 3.3 MMOL/L (3.5-5.1); SODIUM 144 MMOL/L (136-145)
[2018-12-15 18:51] VITALS: BP 151/62
[2018-12-15 18:51] LABS: ALANINE AMINOTRANSFERASE 20 U/L (12-78); ALBUMIN 3.8 G/DL (3.4-5.0); ALBUMIN/GLOBULIN RATIO 0.9 (1.0-2.7); ALKALINE PHOSPHATASE 86 U/L (46-116); ASPARTATE AMINO TRANSFERASE 13 U/L (15-37); BILIRUBIN,TOTAL 0.3 MG/DL (0.2-1.0); CKMB 1.3 NG/ML (0.0-3.6); CREATINE KINASE 53 U/L (26-308)
--- NOTE | 2018-12-15 18:57 | NUR ---
ED Nurse Note: family member left the unit contact number [phone] (Patrice
[2018-12-15] MEDS ORDERED: Azithromycin 500 MG in NS 275 ML IV ONE (19:00)
[2018-12-15] MEDS ORDERED: Piperacillin/Tazobactam 3.375 GM in NS 110 ML IVPB ONE (19:00)
--- NOTE | 2018-12-15 19:06 | NUR ---
RESPIRATORY NOTE: Received pt in ED on BiPAP 15/5, backup rate 18, 70%. Pt on a Facial mask, skin intact, no redness/breakdowns noted. Foam tape applied on pt's nosebridge/cheeks/chin to prevent any irritations. Pt arousable, mostly drowsy/lethargic, currently on a Q15 Albuterol/Atrovent breathing tx. FiO2 titrated to 50% post ABG. B/S pranav. diminished, nonproductive cough. BiPAP plugged itno red outlet. Pt in no apparent distress at this time & seems comfortable on current settings. Will continue to monitor pt.
--- NOTE | 2018-12-15 19:08 | NUR ---
HAND-OFF: Report given to Shaggy Reed RN. endorsed pending lactic refulx blood draw. endorsed pending 2nd antibiotic administer.
--- NOTE | 2018-12-15 19:15 | NUR ---
ED Nurse Note: Reflex lactic drawn; sent down to lab.
--- NOTE | 2018-12-15 20:05 | NUR ---
ED Nurse Note: MRSA swab collected; patient refused VRE CRE swab
[2018-12-15 20:20] VITALS: BP 129/58
--- NOTE | 2018-12-15 20:20 | NUR ---
TRANSFER TO FLOOR: Patient transferred to SDU 239-2 as ordered, per MD LINDSAY . Report given to OSITO PICHARDO. Patient in stable condition. Belongings list completed with receiving RN
--- NOTE | 2018-12-15 20:45 | NUR ---
NURSE NOTES: Received patient in bed with eyes open . Sinus rhythm on the monitor.Currently on 2 L NC for transfer, Placed on Bi-pap by Rt once in bed 15/5 fio2 50%. Right upper arm 20G, IV site patent and intact. Patient used urinal to void. Refused to have VRE/CRE swabs. MRSA swabs done in ER. Refuses to remove pants. Bi-lateral legs noted to be excessively dry at this time. Left Rojas noted with skin tear, please see WCP. Patient does not want to stay in bed, wants to sit in chair next to bed. Will continue to monitor
--- NOTE | 2018-12-15 20:57 | NUR ---
NURSE NOTES: called and left message for MD Braswell in regards to admission orders. awaiting call back
[2018-12-15] MEDS ORDERED: Morphine Sulfate 4mg/ml Inj (IV USE ONLY) IVP PRN (21:30)
[2018-12-15] MEDS ORDERED: Morphine Sulfate 2mg/ml Inj(IV/IM USE ONLY) IVP PRN (21:30)
--- NOTE | 2018-12-15 21:30 | History & Physical ---
History and Physical History & Physicial Patient: SATURNINO TRAYLOR [facility] Rec #: [id number] Patient No.: [id number] Date of Service: 12/15/18 DATE OF ADMISSION: 12/15/18 CHIEF COMPLAINT: Shortness of breath. 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 Erwin office. He states he suddenly developed worsening SOB and could not breath. In the ER he was tripoding and was started on BIPAP. He was discharged from [facility] yesterday for COPD exacerbation. He was found to have adenocarcinoma after having a sternal biopsy at [facility]. 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 PAST SURGICAL HISTORY: Noncontributory. MEDICATIONS: Reviewed in [employer]. ALLERGIES: Lisinopril. SOCIAL HISTORY: The patient is a smoker. He drinks alcohol from time to time. No drugs. FAMILY HISTORY: Positive for hypertension. REVIEW OF SYSTEMS: A 12-point review of systems is negative except for pertinent positives as mentioned above. PHYSICAL EXAM: GENERAL: No acute distress. The patient is alert, awake, and oriented x3. The patient is on oxygen. HEENT: Normocephalic/atraumatic. NECK: Supple. No jugular venous distention. LUNGS: Clear to auscultation. However, decreased breath sounds and not much air movement bilaterally. CARDIOVASCULAR: Regular rate and rhythm. Normal S1, S2. ABDOMEN: Soft, nontender, and nondistended. EXTREMITIES: No clubbing or cyanosis. PSYCHIATRIC: Appropriate mood and affect. NEUROLOGIC: The patient can move all extremities. Laboratory Tests Test 12/15/18 17:44 12/15/18 18:00 12/15/18 18:25 12/15/18 19:10 Arterial Blood pH 7.300 (7.350-7.450) Arterial Blood Partial Pressure CO2 68.7 mmHg (35.0-45.0) *H Arterial Blood Partial Pressure O2 494.5 mmHg (75.0-100.0) H Arterial Blood HCO3 33.1 mmol/L (22.0-26.0) H Arterial Blood Oxygen Saturation 99.6 % (95-100) Arterial Blood Base Excess 5.1 (-2-2) H Siva Test Positive White Blood Count 19.2 K/UL (4.8-10.8) H Red Blood Count 3.90 M/UL (4.70-6.10) L Hemoglobin 10.9 G/DL (14.2-18.0) L Hematocrit 34.2 % (42.0-52.0) L Mean Corpuscular Volume 88 FL (80-99) Mean Corpuscular Hemoglobin 28.0 PG (27.0-31.0) Mean Corpuscular Hemoglobin Concent 32.0 G/DL (32.0-36.0) Red Cell Distribution Width 15.1 % (11.6-14.8) H Platelet Count 386 K/UL (150-450) Mean Platelet Volume 5.1 FL (6.5-10.1) L Neutrophils (%) (Auto) % (45.0-75.0) Lymphocytes (%) (Auto) % (20.0-45.0) Monocytes (%) (Auto) % (1.0-10.0) Eosinophils (%) (Auto) % (0.0-3.0) Basophils (%) (Auto) % (0.0-2.0) Differential Total Cells Counted 100 Neutrophils % (Manual) 74 % (45-75) Lymphocytes % (Manual) 18 % (20-45) L Monocytes % (Manual) 8 % (1-10) Eosinophils % (Manual) 0 % (0-3) Basophils % (Manual) 0 % (0-2) Band Neutrophils 0 % (0-8) Platelet Estimate Adequate Platelet Morphology Normal Red Blood Cell Morphology Normal Urine Color Yellow Urine Appearance Clear Urine pH 5 (4.5-8.0) Urine Specific [place] 1.015 (1.005-1.035) Urine Protein Negative (NEGATIVE) Urine Glucose (UA) Negative (NEGATIVE) Urine Ketones 1+ (NEGATIVE) H Urine Blood 2+ (NEGATIVE) H Urine Nitrite Negative (NEGATIVE) Urine Bilirubin Negative (NEGATIVE) Urine Urobilinogen 1 MG/DL (0.0-1.0) H Urine Leukocyte Esterase 1+ (NEGATIVE) H Urine RBC 0-2 /HPF (0 - 0) H Urine WBC 0-2 /HPF (0 - 0) Urine Squamous Epithelial Cells Few /LPF (NONE/OCC) Urine Bacteria Few /HPF (NONE) Sodium Level 144 MMOL/L (136-145) Potassium Level 3.3 MMOL/L (3.5-5.1) L Chloride Level 100 MMOL/L (98-107) Carbon Dioxide Level 31 MMOL/L (21-32) Anion Gap 14 mmol/L (5-15) Blood Urea Nitrogen 27 mg/dL (7-18) H Creatinine 1.2 MG/DL (0.55-1.30) Estimat Glomerular Filtration Rate > 60 mL/min (>60) Glucose Level 156 MG/DL (74-106) H Calcium Level 9.9 MG/DL (8.5-10.1) Total Bilirubin 0.3 MG/DL (0.2-1.0) Aspartate Amino Transf (AST/SGOT) 13 U/L (15-37) L Alanine Aminotransferase (ALT/SGPT) 20 U/L (12-78) Alkaline Phosphatase 86 U/L (46-116) Total Creatine Kinase 53 U/L (26-308) Creatine Kinase MB 1.3 NG/ML (0.0-3.6) Creatine Kinase MB Relative Index 2.4 Troponin I 0.008 ng/mL (0.000-0.056) Pro-B-Type Natriuretic Peptide 204 pg/mL (0-125) H Total Protein 8.2 G/DL (6.4-8.2) Albumin 3.8 G/DL (3.4-5.0) Globulin 4.4 g/dL Albumin/Globulin Ratio 0.9 (1.0-2.7) L Lactic Acid Level 2.60 mmol/L (0.4-2.0) H 1.80 mmol/L (0.66-2.22) LABORATORY DATA: ASSESSMENT: 1. Acute shortness of breath likely secondary to chronic obstructive pulmonary disease exacerbation. 2. 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 Chronic Congestive heart failure. 4. Smoker. 5. Diabetes. 6. Atrial fibrillation, not on anticoagulation. 7. Cataracts. 8. Major depressive disorder. 9. History of left upper lobe adenocarcinoma status post back surgery. PLAN: 1. The patient to be admitted to PCU 2. BiPAP as needed for shortness of breath. 3. Consult with Dr. Maria Luz Alas for Oncology 4. Solu-Medrol 40 mg IV b.i.d. 5. DuoNeb [id number] every 6 hours. 6. Pulmonary consult with Dr. Ramirez. 7. Daily ABG. 8. Heparin for DVT prophylaxis. 9. Full Code. DR. GUS SYLVESTER WILL BE COVERING ME ON 12/16-12/17 Gerard Braswell MD Dec 15, 2018 21:30
[2018-12-15] MEDS: HydrALAZINE 50mg tab ORAL SCH (22:00)
[2018-12-15] MEDS: Enoxaparin 40mg Inj SUBQ SCH (22:23)
--- NOTE | 2018-12-15 22:28 | NUR ---
NURSE NOTES: Patient hydralazine PO held at this time, Very lethargic. Will continue to monitor.
--- NOTE | 2018-12-15 23:57 | NUR ---
NURSE NOTES: Patient continues in chair at this time. Does not want to be in bed. Provided patient with another blanket. bedside table with urinal and call light within reach. will continue to monitor
[2018-12-16] VITALS: BP 116/66
--- NOTE | 2018-12-16 00:14 | Physician Query ---
--------- THIS DOCUMENT IS A PERMANENT PART OF THE MEDICAL RECORD --------- PLEASE COMPLETE THE FORM BEFORE SIGNING Dear Dr. MONTOYA Date 12/15/18 [employer] Yelena LOPEZ [employer] Phone #: Exercise your independent professional judgment when responding to query. Questions asked do not imply particular answer is desired or expected. We greatly appreciate your clarification on this issue. Clinical Documentation States: "1. Acute shortness of breath likely secondary to chronic obstructive pulmonary disease exacerbation." -- documented on H&P Clinical Findings Show: ABG:ph 7.30, pCO2 68.7, pO2 494.5, O2sat 99.6 on BIPAP Please clarify if the patient had any of the following conditions based on the above clinical findings: [x]Respiratory Failure [x] Acute [] Chronic (on home O2) []Acute on Chronic [x] Acute Respiratory Distress [] Acute Respiratory Insufficiency [] Respiratory failure due to trauma [] Respiratory insufficiency due to trauma [] Unable to determine [] Other: Condition Present on Admission: [x] Yes [] No []Clinically Undeterminable Please also document in your Progress Notes and/or Discharge Summary and indicate if the condition was present on admission. LINDA MONTOYA M.D. DATE & TIME [facility]
[2018-12-16] MEDS: Albuterol/Ipratropium 3ml neb HHN SCH ×3 (00:46→13:00)
--- NOTE | 2018-12-16 02:43 | NUR ---
NURSE NOTES: Patient does not want Bi-pap on anymore. RT placed patient on 3L NC at this time. Patient continues in chair with all light at reach. will continue to monitor
[2018-12-16 04:00] VITALS: BP 110/60
--- NOTE | 2018-12-16 04:19 | NUR ---
NURSE NOTES: Patient noted to be more alert at this time. patient states he is hungry. on 3L NC at this time. Roofing Superintendent called for sandwich at this time. No sandwiches available. Pudding and jello given to patient . Will continue to monitor
[2018-12-16 05:06] LABS: ANION GAP 13 mmol/L (5-15); BLOOD UREA NITROGEN 29 mg/dL (7-18); CALCIUM 9.7 MG/DL (8.5-10.1); CARBON DIOXIDE 29 MMOL/L (21-32); CHLORIDE 99 MMOL/L (98-107); CREATININE 1.2 MG/DL (0.55-1.30); POTASSIUM 4.2 MMOL/L (3.5-5.1); SODIUM 141 MMOL/L (136-145)
--- NOTE | 2018-12-16 05:07 | NUR ---
NURSE NOTES: Patient refused Hydralazine this morning. States it make him "jerk". Wants to continue home medication Rhythmol. Will get order verified by
[2018-12-16] MEDS: HydrALAZINE 50mg tab ORAL SCH ×3 (05:08→20:59)
--- NOTE | 2018-12-16 07:00 | NUR ---
RESPIRATORY NOTE: Patient received on 3 l/min NC 32% no signs of distress, patient is alert and oriented. Bipap bedside if needed, will continue to monitor
--- NOTE | 2018-12-16 07:45 | NUR ---
HAND-OFF: Report given to Conner MCNEILL using SBAR.
[2018-12-16 08:00] VITALS: BP 121/61
--- NOTE | 2018-12-16 08:10 | NUR ---
NURSE NOTES: received pt awake, alert, oriented, sitting on the chair, no co pain, no SOB, pt on o2 2l, tolerate well, skin warm and dry to touch, dressing on left leg dry and intact, use urinal, tolerate diet well, bed in low position, call light within reach.
--- NOTE | 2018-12-16 09:00 | NUR ---
RESPIRATORY NOTE: Attempted to get ABG and tried twice on patient. Will try again later.
[2018-12-16] MEDS: Losartan 50mg tab ORAL SCH (10:00)
[2018-12-16] MEDS: Furosemide 40mg tab ORAL SCH (10:00)
[2018-12-16] MEDS: Solu-MEDROL 40mg Inj IVP SCH ×2 (10:00→21:06)
[2018-12-16] MEDS: HYDROcodone/Acetamin 10/325 tab ORAL SCH ×3 (10:05→23:32)
[2018-12-16 12:00] VITALS: BP 135/72
--- NOTE | 2018-12-16 14:16 | General Progress Note ---
Assessment/Plan Problem List: (1) COPD exacerbation ICD Codes: J44.1 - Chronic obstructive pulmonary disease with (acute) exacerbation SNOMED: 384170894 (2) Respiratory distress ICD Codes: R06.03 - Acute respiratory distress SNOMED: 716475735 Assessment/Plan cont with Bronchodilators and steroids Discussed with pt and Dr Michaelle GRAJEDA Subjective Allergies: Coded Allergies: LISINOPRIL (Verified Allergy, Unknown, 09/29/16) Subjective wants to go home Objective Last 24 Hour Vital Signs Date Time Temp Pulse Resp B/P (MAP) Pulse Ox O2 Delivery O2 Flow Rate FiO2 12/16/18 13:34 Nasal Cannula 3.0 32 12/16/18 13:33 Nasal Cannula 3.0 32 12/16/18 12:00 Bi-pap 12/16/18 12:00 97.4 86 25 135/72 (93) 97 12/16/18 12:00 2.0 12/16/18 10:35 98.0 12/16/18 10:00 121/67 12/16/18 08:00 Bi-pap 12/16/18 08:00 98.4 92 24 121/61 (81) 100 12/16/18 08:00 89 12/16/18 08:00 2.0 12/16/18 07:14 90 20 99 Nasal Cannula 3.0 32 12/16/18 07:04 100 20 94 Nasal Cannula 3.0 32 12/16/18 07:02 Nasal Cannula 3.0 32 12/16/18 07:02 94 Nasal Cannula 3.0 32 12/16/18 05:08 124/76 12/16/18 04:00 Bi-pap 12/16/18 04:00 100 12/16/18 04:00 2.0 12/16/18 04:00 98.0 96 110/60 (77) 12/16/18 03:01 99 Nasal Cannula 3.0 32 12/16/18 03:01 Nasal Cannula 3.0 32 12/16/18 00:54 87 19 100 Bi-pap 40 12/16/18 00:44 88 20 100 Bi-pap 40 12/16/18 00:44 86 20 100 Facial 40 12/16/18 00:00 82 12/16/18 00:00 98.2 82 116/66 (83) 12/15/18 23:22 Bi-pap 12/15/18 23:10 81 18 99 Facial 40 12/15/18 22:09 Bi-pap 12/15/18 22:07 50 12/15/18 22:00 117/71 12/15/18 21:15 87 20 97 Facial 40 12/15/18 20:38 107 12/15/18 20:20 97.3 106 13 129/58 100 Bi-pap 6.0 50 98 12/15/18 20:20 97.3 98 13 129/58 100 Bi-pap 6.0 50 12/15/18 19:56 105 22 100 Bi-pap 50 12/15/18 19:22 96 21 100 Bi-pap 50 12/15/18 19:21 95 21 100 Bi-pap 50 12/15/18 18:59 90 19 100 Bi-pap 50 12/15/18 18:59 95 19 100 Facial 50 12/15/18 18:51 106 12 151/62 100 Bi-pap 12/15/18 18:17 124 20 100 Bi-pap 100 12/15/18 17:57 117 20 100 Bi-pap 100 12/15/18 17:50 128 20 Bi-pap 100 12/15/18 17:50 97.3 138 38 238/120 69 Room Air 12/15/18 17:50 128 20 99 Facial 100 12/15/18 17:50 138 38 6.0 100 12/15/18 17:40 96.6 100 20 126/81 99 Simple Mask 6.0 Intake and Output 12/15/18 12/16/18 18:59 06:59 Intake Total 460 ml Output Total 600 ml Balance -140 ml Intake Oral 350 ml IV Total 110 ml Output Urine Total 600 ml # Voids 1 Laboratory Tests 12/15/18 17:44: Arterial Blood pH 7.300L, Arterial Blood Partial Pressure CO2 68.7*H, Arterial Blood Partial Pressure O2 494.5H, Arterial Blood HCO3 33.1H, Arterial Blood Oxygen Saturation 99.6, Arterial Blood Base Excess 5.1H, Siva Test Positive 12/15/18 18:00: White Blood Count 19.2H, Red Blood Count 3.90L, Hemoglobin 10.9L, Hematocrit 34.2L, Mean Corpuscular Volume 88, Mean Corpuscular Hemoglobin 28.0, Mean Corpuscular Hemoglobin Concent 32.0, Red Cell Distribution Width 15.1H, Platelet Count 386, Mean Platelet Volume 5.1L, Neutrophils (%) (Auto) , Lymphocytes (%) (Auto) , Monocytes (%) (Auto) , Eosinophils (%) (Auto) , Basophils (%) (Auto) , Differential Total Cells Counted 100, Neutrophils % ( Manual) 74, Lymphocytes % (Manual) 18L, Monocytes % (Manual) 8, Eosinophils % ( Manual) 0, Basophils % (Manual) 0, Band Neutrophils 0, Platelet Estimate Adequate, Platelet Morphology Normal, Red Blood Cell Morphology Normal, Urine Color Yellow, Urine Appearance Clear, Urine pH 5, Urine Specific [place] 1.015, Urine Protein Negative, Urine Glucose (UA) Negative, Urine Ketones 1+H, Urine Blood 2+H, Urine Nitrite Negative, Urine Bilirubin Negative, Urine Urobilinogen 1H, Urine Leukocyte Esterase 1+H, Urine RBC 0-2H, Urine WBC 0-2, Urine Squamous Epithelial Cells Few, Urine Bacteria Few, Sodium Level 144, Potassium Level 3.3L , Chloride Level 100, Carbon Dioxide Level 31, Anion Gap 14, Blood Urea Nitrogen 27H, Creatinine 1.2, Estimat Glomerular Filtration Rate > 60, Glucose Level 156H, Calcium Level 9.9, Total Bilirubin 0.3, Aspartate Amino Transf (AST/ SGOT) 13L, Alanine Aminotransferase (ALT/SGPT) 20, Alkaline Phosphatase 86, Total Creatine Kinase 53, Creatine Kinase MB 1.3, Creatine Kinase MB Relative Index 2.4, Troponin I 0.008, Pro-B-Type Natriuretic Peptide 204H, Total Protein 8.2, Albumin 3.8, Globulin 4.4, Albumin/Globulin Ratio 0.9L 12/15/18 18:25: Lactic Acid Level 2.60H 12/15/18 19:10: Lactic Acid Level 1.80 12/16/18 04:10: Sodium Level 141, Potassium Level 4.2, Chloride Level 99, Carbon Dioxide Level 29, Anion Gap 13, Blood Urea Nitrogen 29H, Creatinine 1.2, Estimat Glomerular Filtration Rate > 60, Glucose Level 188H, Calcium Level 9.7 12/16/18 12:20: Arterial Blood pH 7.418, Arterial Blood Partial Pressure CO2 55.6*H, Arterial Blood Partial Pressure O2 102.2H, Arterial Blood HCO3 35.1H, Arterial Blood Oxygen Saturation 97.3, Arterial Blood Base Excess 9.1*H, Siva Test Positive Height (Feet): 5 Height (Inches): 8.00 Weight (Pounds): 190 Cardiovascular: normal rate Respiratory/Chest: lungs clear Edema: no edema noted Generalized Vince Fortune MD Dec 16, 2018 14:16
--- NOTE | 2018-12-16 14:59 | NUR ---
NURSE NOTES: pt sitting on the chair, no co pain, vital signs stable, Vince Young saw pt, continue monitoring.
[2018-12-16 16:00] VITALS: BP 140/73
--- NOTE | 2018-12-16 16:14 | NUR ---
CASE MANAGEMENT: REVIEW 63/M SILVIA FROM DR. HELMS'S OFFICE CC: SOB DURING BONE CA TX SI: RESP DISTRESS . COPD EXACERBATION T 96.6 HR 124 RR 38 BP 238/120 SAT 69% BIPAP FIO2 100 WBC 19.2 H/H 10.9/34.2 BNP 204 IS: SOLU MEDROL IV X1 ATROVENT HHN X1 ALBUTEROL HNN X1 AZITHROMYCIN IV X1 ZOSYN IV X1 PATIENT ADMITTED TO STEP DOWN UNIT 12/15/2018 DCP: PATIENT IS FROM HOME
--- NOTE | 2018-12-16 17:55 | Consultation ---
Consult Note Assessment/Plan dictated constule copd exacerbation vs reaction to chemo hyopemia respiratory dsitress ?PNA vs atelectsais on cxr elevated wbc steroids abx nebs and prn bipap o2 Naila Horton DO Dec 16, 2018 17:55
[2018-12-16] MEDS ORDERED: Naloxone 0.4mg/ml Inj IV PRN (18:00)
[2018-12-16] MEDS: Piperacillin/Tazobactam 3.375 GM in D5W 110 ML IVPB SCH (18:39)
--- NOTE | 2018-12-16 19:06 | NUR ---
NURSE NOTES: HR up to 150, no co chest pain, called Vince Young, ordered RHYTHMOL 150MG, CONTINUE MONITORING.
--- NOTE | 2018-12-16 19:09 | NUR ---
HAND-OFF: Report given to ÁNGEL MCNEILL.
--- NOTE | 2018-12-16 19:10 | NUR ---
NURSE NOTES: Received patient from Clarisse Prieto RN. Patient is awake, alert and oriented x4. Up and sitting in chair, on nasal cannula of 2L and showing no signs and symptoms of pain and/or distress. All needs are met. Call light within reach. Will continue plan of care.
[2018-12-16] MEDS: Ipratropium 0.02% Inh Soln 2.5ml UD HHN SCH (19:29)
[2018-12-16 20:00] VITALS: BP 114/55
[2018-12-16] MEDS: Atorvastatin 20mg tab ORAL SCH (21:06)
[2018-12-16] MEDS: Enoxaparin 40mg Inj SUBQ SCH (21:07)
[2018-12-17] VITALS: BP 109/67
[2018-12-17] MEDS: Ipratropium 0.02% Inh Soln 2.5ml UD HHN SCH ×4 (00:57→19:56)
[2018-12-17] MEDS: Piperacillin/Tazobactam 3.375 GM in D5W 110 ML IVPB SCH ×3 (02:28→18:34)
[2018-12-17 04:00] VITALS: BP 115/61
--- NOTE | 2018-12-17 04:00 | Consultation ---
DATE OF CONSULTATION: 12/16/2018 PULMONARY CONSULTATION CONSULTING PHYSICIAN: Naila Horton D.O. REASON FOR CONSULTATION: Shortness of breath. HISTORY OF PRESENT ILLNESS: This is a gentleman, who I recently saw at [facility], who was recently diagnosed with a sternal mass and he had a left upper lobe VATS with adenocarcinoma, saw his long distance operator the day prior to admission and was started on chemo. Apparently, he had shortness of breath, came to the ER with tripoding, initially was on BiPAP. 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 He has a history of COPD, apparently went to see his oncologist yesterday to start chemotherapy where he developed shortness of breath, came into the emergency room with hypoxemia and dyspnea. He was wheezing. He has a history of COPD, but said that this is unlike his normal COPD exacerbations. He denies nausea, vomiting, diarrhea, or recent ill contacts. He was initially placed on BiPAP, but he refused. He was given nebulizers and currently on supplemental oxygen and feeling much improved. PAST MEDICAL HISTORY: Includes hypertension, CHF, asthma, COPD, and squamous cell cancer. SOCIAL HISTORY: Positive for tobacco. No alcohol or drugs. He is a current tobacco user. MEDICATIONS: Pre-hospital and present medications reviewed, reconciled, and documented in the electronic medical record by dose, frequency, and route. FAMILY HISTORY: Noncontributory. ALLERGIES: He has no known drug allergies. PHYSICAL EXAMINATION: GENERAL: At the time of my exam, he is much improved since his ER admission. He is alert and oriented, in no acute distress. VITAL SIGNS: He is afebrile, pulse is 86, respirations 22, blood pressure 140/73, he is 96% on 3 liters of oxygen. HEENT: His oropharynx is moist. Nasal mucosa moist. NECK: Supple without lymphadenopathy. LUNGS: Decreased at the bases. No wheezes present. HEART: Regular rate and rhythm without a murmur. ABDOMEN: Soft, nontender. Positive bowel sounds. EXTREMITIES: With no edema. LABORATORY AND DIAGNOSTIC DATA: His white count is 19.2 yesterday, hemoglobin 10.8, and platelets are 386,000. Sodium is 141, potassium 4.2, chloride 99, bicarb 22, BUN is 29, creatinine 1.2, and glucose is 188. His urinalysis is positive for leukocyte esterase, and his ABG today is 7.41, 55, and 102. Cultures are pending at this time. He has been placed on steroids and was given initial dose of antibiotics in the emergency room. The dose has not been continued at this time. He has also been given Lasix, and a chest x-ray was obtained as well with atelectasis with possible infiltrates. ASSESSMENT: 1. Respiratory distress, query reaction to chemotherapy versus COPD exacerbation. 2. Leukocytosis. 3. Diabetes. 4. Hypertension. 5. History of lung cancer. PLAN: For the patient, I would continue his steroids. I would repeat a chest x-ray. I would also resume his antibiotics, nebulizers as ordered, p.r.n. ABG, DVT prophylaxis, wound care, supplemental oxygen. The patient is requesting to be discharged, and if not discharged, he is planning on leaving against medical advice. We will continue to discuss with the patient in hopes of having him complete his therapies and treatments. Naila Horton D.O. DR: MITCH JOB#: [id number] CC:
[2018-12-17] MEDS: HydrALAZINE 50mg tab ORAL SCH ×3 (05:12→21:36)
[2018-12-17] MEDS: HYDROcodone/Acetamin 10/325 tab ORAL SCH ×4 (06:00→23:41)
[2018-12-17 06:01] LABS: HEMATOCRIT 29.3 % (42.0-52.0); HEMOGLOBIN 9.6 G/DL (14.2-18.0); MEAN CORPUSCULAR VOLUME 86 FL (80-99); PLATELET COUNT 267 K/UL (150-450); RED BLOOD COUNT 3.39 M/UL (4.70-6.10); RED CELL DISTRIBUTION WIDTH 15.2 % (11.6-14.8); WHITE BLOOD COUNT 10.5 K/UL (4.8-10.8)
[2018-12-17 06:46] LABS: ANION GAP 6 mmol/L (5-15); BLOOD UREA NITROGEN 30 mg/dL (7-18); CALCIUM 8.5 MG/DL (8.5-10.1); CARBON DIOXIDE 33 MMOL/L (21-32); CHLORIDE 103 MMOL/L (98-107); CREATININE 1.1 MG/DL (0.55-1.30); POTASSIUM 4.1 MMOL/L (3.5-5.1); SODIUM 142 MMOL/L (136-145)
--- NOTE | 2018-12-17 07:07 | NUR ---
RESPIRATORY NOTE: Unable to scan the pt's arm band. The computer kept saying:" The arm band doesn't match with eMar". Double check the pt's name and eMar, it's match the name. Re-scan 3 times, still get the same problem. Reported to OSITO Haas, she scan the pt, and it happened the same problem. Mannually administer the medicine. Will continue to monitor pt.
--- NOTE | 2018-12-17 07:15 | NUR ---
NURSE NOTES: RECEIVED BED SIDE REPORT FROM [facility] [employer] OPERATOR OF NOC SHIFT. RECEIVED PT WITH HOB ELEVATED 45 DEGREE AWAKE AND ALERT ORIENTED X4 .PT IS TRACH TO VENT DEPENDENT TOLERATING WELL CURRENTS VENT SETTINGS.PT HAS SHILEY # 6 SEEMS PATENT INTACT AT MID LINE AND WELL SECURED.PT ABLE TO PROVIDE HIM SELF ORAL CARE.RENDERED TRACH CARE PT TOLERATED WELL.PROVIDE BREAKFAST TRAY MECHANICAL SOFT DIET ,EAT 100% TOLERATED WELL,NO S/S OF ANY ACUTE RESP DISTRESS NOTED.FULL BODY ASSESSMENT DONE.WILL CONT TO MONITOR.
--- NOTE | 2018-12-17 07:20 | NUR ---
NURSE NOTES: RECEIVED BED SIDE REPORT FROM [facility] GENETICIST OF NOC SHIFT. RECEIVED PT SITTING UP IN CHAIR EATING BREAKFAST ,PT AWAKE AND ALERT ORIENTED X4.PT IS O2 DEPENDENT RECEIVING O2 @ 2L/;MINTS VIA N/C, O2 SAT 100%.PT DENIES PAIN OR ANY DISCOMFORT AT THIS TIME.FULL BODY ASSESSMENT DONE.NO ACUTE DISTRESS NOTE .WILL CONT TO MONITOR.
--- NOTE | 2018-12-17 07:28 | NUR ---
HAND-OFF: Report given to OSITO CURRIE.
[2018-12-17 08:00] VITALS: BP 137/50
[2018-12-17] MEDS ORDERED: fentaNYL Destruction MISC SCH (09:00)
[2018-12-17] MEDS: Losartan 50mg tab ORAL SCH (09:33)
[2018-12-17] MEDS: Furosemide 40mg tab ORAL SCH (09:34)
[2018-12-17] MEDS: Solu-MEDROL 40mg Inj IVP SCH ×2 (09:34→21:30)
--- NOTE | 2018-12-17 09:57 | Diagnostic Imaging Report ---
EXAM: XR Chest, 1 View CLINICAL HISTORY: COUGH TECHNIQUE: Frontal view of the chest. COMPARISON: Chest x-ray dated 12/15/18 FINDINGS: Lungs: Mild subsegmental atelectasis in the right lung base, unchanged. The lungs are otherwise clear. Pleural space: Unremarkable. The costophrenic angles are sharp. No visible pneumothorax. Heart: Mild cardiomegaly. Mediastinum: Unremarkable. Bones/joints: Unremarkable. Tubes, lines and devices: Telemetry leads overlie the thorax. IMPRESSION: 1. Mild subsegmental atelectasis in the right lung base, unchanged. 2. Mild cardiomegaly.
--- NOTE | 2018-12-17 11:00 | NUR ---
NURSE NOTES: Curtis TERAN CAME TO SEE THE PT AND INSTRUCTED REGARDING CARDIOLOGYST IS COMING TO SEE HIM.PT VERBALIS UNDERSTANDING.WILL CONT TO MONITOR.
--- NOTE | 2018-12-17 11:54 | General Progress Note ---
Assessment/Plan Problem List: (1) COPD exacerbation ICD Codes: J44.1 - Chronic obstructive pulmonary disease with (acute) exacerbation SNOMED: 721931907 (2) Respiratory distress ICD Codes: R06.03 - Acute respiratory distress SNOMED: 594488748 (3) Afib ICD Codes: I48.91 - Unspecified atrial fibrillation SNOMED: 47330960 (4) MARTINA on CPAP ICD Codes: G47.33 - Obstructive sleep apnea (adult) (pediatric) SNOMED: 63914004, [id number] Assessment/Plan cont with Bronchodilators and steroids Cardiology consult Follow labs Patient was started on Rythmol Subjective Allergies: Coded Allergies: LISINOPRIL (Verified Allergy, Unknown, 09/29/16) Subjective Patient still coughing a lot Objective Last 24 Hour Vital Signs Date Time Temp Pulse Resp B/P (MAP) Pulse Ox O2 Delivery O2 Flow Rate FiO2 12/17/18 10:06 98.3 12/17/18 09:33 137/50 12/17/18 08:00 86 12/17/18 08:00 98.3 92 22 137/50 (79) 100 12/17/18 08:00 Bi-pap 12/17/18 08:00 2.0 12/17/18 07:17 78 19 100 Nasal Cannula 3.0 32 12/17/18 07:07 97 Nasal Cannula 3.0 32 12/17/18 07:07 75 18 97 Nasal Cannula 3.0 32 12/17/18 07:07 Nasal Cannula 3.0 32 12/17/18 06:49 82 12/17/18 05:12 115/61 12/17/18 04:00 97.9 82 20 115/61 (79) 98 12/17/18 04:00 2.0 12/17/18 04:00 Bi-pap 12/17/18 03:32 80 12/17/18 01:04 95 20 100 Nasal Cannula 2.0 28 12/17/18 00:57 93 20 98 Nasal Cannula 3.0 32 12/17/18 00:00 Bi-pap 12/17/18 00:00 2.0 12/17/18 00:00 98.4 89 24 109/67 (81) 99 12/16/18 23:50 87 12/16/18 21:06 164 12/16/18 20:59 114/55 12/16/18 20:00 98.7 120 24 114/55 (74) 98 12/16/18 20:00 2.0 12/16/18 20:00 Bi-pap 12/16/18 19:45 94 20 100 Nasal Cannula 3.0 32 12/16/18 19:32 97 Nasal Cannula 3.0 32 12/16/18 19:32 104 20 97 Nasal Cannula 3.0 32 12/16/18 19:32 Nasal Cannula 3.0 32 12/16/18 19:23 161 12/16/18 18:40 140 12/16/18 18:17 98.6 12/16/18 16:00 88 12/16/18 16:00 Bi-pap 12/16/18 16:00 98.6 86 26 140/73 (95) 96 12/16/18 16:00 2.0 12/16/18 14:00 135/72 12/16/18 13:34 Nasal Cannula 3.0 32 12/16/18 13:33 Nasal Cannula 3.0 32 12/16/18 12:00 87 12/16/18 12:00 Bi-pap 12/16/18 12:00 97.4 86 25 135/72 (93) 97 12/16/18 12:00 2.0 Intake and Output 12/16/18 12/17/18 19:00 07:00 Intake Total 9.66 ml 1270.34 ml Output Total 1700 ml Balance 9.66 ml -429.66 ml Intake Oral 1060 ml IV Total 9.66 ml 210.34 ml Output Urine Total 1700 ml Laboratory Tests 12/16/18 12:20: Arterial Blood pH 7.418, Arterial Blood Partial Pressure CO2 55.6*H, Arterial Blood Partial Pressure O2 102.2H, Arterial Blood HCO3 35.1H, Arterial Blood Oxygen Saturation 97.3, Arterial Blood Base Excess 9.1*H, Siva Test Positive 12/17/18 04:23: White Blood Count 10.5, Red Blood Count 3.39L, Hemoglobin 9.6L, Hematocrit 29.3L , Mean Corpuscular Volume 86, Mean Corpuscular Hemoglobin 28.2, Mean Corpuscular Hemoglobin Concent 32.7, Red Cell Distribution Width 15.2H, Platelet Count 267, Mean Platelet Volume 5.3L, Neutrophils (%) (Auto) , Lymphocytes (%) (Auto) , Monocytes (%) (Auto) , Eosinophils (%) (Auto) , Basophils (%) (Auto) , Differential Total Cells Counted 100, Neutrophils % ( Manual) 95H, Lymphocytes % (Manual) 2L, Monocytes % (Manual) 3, Eosinophils % ( Manual) 0, Basophils % (Manual) 0, Band Neutrophils 0, Platelet Estimate Adequate, Platelet Morphology Normal, Anisocytosis 1+, Sodium Level 142, Potassium Level 4.1, Chloride Level 103, Carbon Dioxide Level 33H, Anion Gap 6, Blood Urea Nitrogen 30H, Creatinine 1.1, Estimat Glomerular Filtration Rate > 60 , Glucose Level 166H, Calcium Level 8.5, Magnesium Level 2.4, Pro-B-Type Natriuretic Peptide 894H Height (Feet): 5 Height (Inches): 8.00 Weight (Pounds): 190 Cardiovascular: normal rate Respiratory/Chest: other - Coarse breath sounds bilaterally Edema: no edema noted Generalized Vince Fortune MD Dec 17, 2018 11:54
[2018-12-17 12:00] VITALS: BP 123/71
--- NOTE | 2018-12-17 14:41 | Cardiology Progress Note ---
Subjective Subjective [id number] Objective Last 24 Hour Vital Signs Date Time Temp Pulse Resp B/P (MAP) Pulse Ox O2 Delivery O2 Flow Rate FiO2 12/17/18 14:11 88 12/17/18 14:00 123/71 12/17/18 13:38 88 20 100 Nasal Cannula 2.0 28 12/17/18 13:30 89 20 100 Nasal Cannula 3.0 32 12/17/18 12:49 98.3 12/17/18 12:00 98.6 84 21 123/71 (88) 100 12/17/18 12:00 84 12/17/18 12:00 Bi-pap 12/17/18 12:00 2.0 12/17/18 10:06 98.3 12/17/18 09:33 137/50 12/17/18 08:00 86 12/17/18 08:00 98.3 92 22 137/50 (79) 100 12/17/18 08:00 Bi-pap 12/17/18 08:00 2.0 12/17/18 07:17 78 19 100 Nasal Cannula 3.0 32 12/17/18 07:07 97 Nasal Cannula 3.0 32 12/17/18 07:07 75 18 97 Nasal Cannula 3.0 32 12/17/18 07:07 Nasal Cannula 3.0 32 12/17/18 06:49 82 12/17/18 05:12 115/61 12/17/18 04:00 97.9 82 20 115/61 (79) 98 12/17/18 04:00 2.0 12/17/18 04:00 Bi-pap 12/17/18 03:32 80 12/17/18 01:04 95 20 100 Nasal Cannula 2.0 28 12/17/18 00:57 93 20 98 Nasal Cannula 3.0 32 12/17/18 00:00 Bi-pap 12/17/18 00:00 2.0 12/17/18 00:00 98.4 89 24 109/67 (81) 99 12/16/18 23:50 87 12/16/18 21:06 164 12/16/18 20:59 114/55 12/16/18 20:00 98.7 120 24 114/55 (74) 98 12/16/18 20:00 2.0 12/16/18 20:00 Bi-pap 12/16/18 19:45 94 20 100 Nasal Cannula 3.0 32 12/16/18 19:32 97 Nasal Cannula 3.0 32 12/16/18 19:32 104 20 97 Nasal Cannula 3.0 32 12/16/18 19:32 Nasal Cannula 3.0 32 12/16/18 19:23 161 12/16/18 18:40 140 12/16/18 16:00 88 12/16/18 16:00 Bi-pap 12/16/18 16:00 98.6 86 26 140/73 (95) 96 12/16/18 16:00 2.0 Intake and Output 12/16/18 12/17/18 19:00 07:00 Intake Total 9.66 ml 1270.34 ml Output Total 1700 ml Balance 9.66 ml -429.66 ml Intake Oral 1060 ml IV Total 9.66 ml 210.34 ml Output Urine Total 1700 ml Laboratory Tests Test 12/17/18 04:23 White Blood Count 10.5 K/UL (4.8-10.8) Red Blood Count 3.39 M/UL (4.70-6.10) L Hemoglobin 9.6 G/DL (14.2-18.0) L Hematocrit 29.3 % (42.0-52.0) L Mean Corpuscular Volume 86 FL (80-99) Mean Corpuscular Hemoglobin 28.2 PG (27.0-31.0) Mean Corpuscular Hemoglobin Concent 32.7 G/DL (32.0-36.0) Red Cell Distribution Width 15.2 % (11.6-14.8) H Platelet Count 267 K/UL (150-450) Mean Platelet Volume 5.3 FL (6.5-10.1) L Neutrophils (%) (Auto) % (45.0-75.0) Lymphocytes (%) (Auto) % (20.0-45.0) Monocytes (%) (Auto) % (1.0-10.0) Eosinophils (%) (Auto) % (0.0-3.0) Basophils (%) (Auto) % (0.0-2.0) Differential Total Cells Counted 100 Neutrophils % (Manual) 95 % (45-75) H Lymphocytes % (Manual) 2 % (20-45) L Monocytes % (Manual) 3 % (1-10) Eosinophils % (Manual) 0 % (0-3) Basophils % (Manual) 0 % (0-2) Band Neutrophils 0 % (0-8) Platelet Estimate Adequate Platelet Morphology Normal Anisocytosis 1+ Sodium Level 142 MMOL/L (136-145) Potassium Level 4.1 MMOL/L (3.5-5.1) Chloride Level 103 MMOL/L (98-107) Carbon Dioxide Level 33 MMOL/L (21-32) H Anion Gap 6 mmol/L (5-15) Blood Urea Nitrogen 30 mg/dL (7-18) H Creatinine 1.1 MG/DL (0.55-1.30) Estimat Glomerular Filtration Rate > 60 mL/min (>60) Glucose Level 166 MG/DL (74-106) H Calcium Level 8.5 MG/DL (8.5-10.1) Magnesium Level 2.4 MG/DL (1.8-2.4) Pro-B-Type Natriuretic Peptide 894 pg/mL (0-125) H Catalina Azul MD Dec 17, 2018 14:41
[2018-12-17] MEDS ORDERED: Tubing IV Secondary IV ONE (15:25)
[2018-12-17] MEDS ORDERED: NS 275ml ONE (15:25)
[2018-12-17 16:00] VITALS: BP 120/78
--- NOTE | 2018-12-17 17:13 | NUR ---
CASE MANAGEMENT: REVIEW 12/17/2018 SI:COPD EXACERBATION. T 98.3 HR 89 RR 20 B/P 123/71 SATS 100% ON 2L/NC CO2 33 BUN 30 GLU 166 BNP 894 IS: HYDRALAZINE PO Q8H SOLU MEDROL IV Q12H LIPITOR PO QHS METHADONE PO BID LASIX PO QD COZAAR POQD FENTANYL TDERMAL Q72H ZOSYN IV Q8H RYTHMOL PO Q8H STEP DOWN UNIT PLAN OF CARE: CONTINUE WITH BRONCHODILATORS AND STEROIDS CARDIO EVAL
--- NOTE | 2018-12-17 17:22 | Pulmonology Progress Note ---
Assessment/Plan Assessment/Plan 1. Respiratory distress, query reaction to chemotherapy versus COPD exacerbation. 2. Leukocytosis. 3. Diabetes. 4. Hypertension. 5. History of lung cancer. 6. 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 prn bipap nebs rate control diuiresis as tolerated cxr stable check Ra sats decrease steroids in m to 30 q 12 if stable OOb Dc planning Subjective Constitutional: Reports: no symptoms HEENT: Repors: no symptoms Respiratory: Reports: no symptoms, productive cough, shortness of breath Cardiovascular: Reports: no symptoms Gastrointestinal/Abdominal: Reports: no symptoms Allergies: Coded Allergies: LISINOPRIL (Verified Allergy, Unknown, 09/29/16) Subjective sleeping this afternoon no distress not using bipap no cp nv or bleeding tolerating po vitals stable Objective Last 24 Hour Vital Signs Date Time Temp Pulse Resp B/P (MAP) Pulse Ox O2 Delivery O2 Flow Rate FiO2 12/17/18 16:00 Bi-pap 12/17/18 16:00 98.2 89 22 120/78 (92) 100 12/17/18 16:00 2.0 12/17/18 16:00 84 12/17/18 14:11 88 12/17/18 14:00 123/71 12/17/18 13:38 88 20 100 Nasal Cannula 2.0 28 12/17/18 13:30 89 20 100 Nasal Cannula 3.0 32 12/17/18 12:49 98.3 12/17/18 12:00 98.6 84 21 123/71 (88) 100 12/17/18 12:00 84 12/17/18 12:00 Bi-pap 12/17/18 12:00 2.0 12/17/18 10:06 98.3 12/17/18 09:33 137/50 12/17/18 08:00 86 12/17/18 08:00 98.3 92 22 137/50 (79) 100 12/17/18 08:00 Bi-pap 12/17/18 08:00 2.0 12/17/18 07:17 78 19 100 Nasal Cannula 3.0 32 12/17/18 07:07 97 Nasal Cannula 3.0 32 12/17/18 07:07 75 18 97 Nasal Cannula 3.0 32 12/17/18 07:07 Nasal Cannula 3.0 32 12/17/18 06:49 82 12/17/18 05:12 115/61 12/17/18 04:00 97.9 82 20 115/61 (79) 98 12/17/18 04:00 2.0 12/17/18 04:00 Bi-pap 12/17/18 03:32 80 12/17/18 01:04 95 20 100 Nasal Cannula 2.0 28 12/17/18 00:57 93 20 98 Nasal Cannula 3.0 32 12/17/18 00:00 Bi-pap 12/17/18 00:00 2.0 12/17/18 00:00 98.4 89 24 109/67 (81) 99 12/16/18 23:50 87 12/16/18 21:06 164 12/16/18 20:59 114/55 12/16/18 20:00 98.7 120 24 114/55 (74) 98 12/16/18 20:00 2.0 12/16/18 20:00 Bi-pap 12/16/18 19:45 94 20 100 Nasal Cannula 3.0 32 12/16/18 19:32 97 Nasal Cannula 3.0 32 12/16/18 19:32 104 20 97 Nasal Cannula 3.0 32 12/16/18 19:32 Nasal Cannula 3.0 32 12/16/18 19:23 161 12/16/18 18:40 140 Intake and Output 12/16/18 12/17/18 18:59 06:59 Intake Total 1280.00 ml Output Total 1700 ml Balance -420.00 ml Intake Oral 1060 ml IV Total 220.00 ml Output Urine Total 1700 ml Laboratory Tests 12/17/18 04:23: White Blood Count 10.5, Red Blood Count 3.39L, Hemoglobin 9.6L, Hematocrit 29.3L , Mean Corpuscular Volume 86, Mean Corpuscular Hemoglobin 28.2, Mean Corpuscular Hemoglobin Concent 32.7, Red Cell Distribution Width 15.2H, Platelet Count 267, Mean Platelet Volume 5.3L, Neutrophils (%) (Auto) , Lymphocytes (%) (Auto) , Monocytes (%) (Auto) , Eosinophils (%) (Auto) , Basophils (%) (Auto) , Differential Total Cells Counted 100, Neutrophils % ( Manual) 95H, Lymphocytes % (Manual) 2L, Monocytes % (Manual) 3, Eosinophils % ( Manual) 0, Basophils % (Manual) 0, Band Neutrophils 0, Platelet Estimate Adequate, Platelet Morphology Normal, Anisocytosis 1+, Sodium Level 142, Potassium Level 4.1, Chloride Level 103, Carbon Dioxide Level 33H, Anion Gap 6, Blood Urea Nitrogen 30H, Creatinine 1.1, Estimat Glomerular Filtration Rate > 60 , Glucose Level 166H, Calcium Level 8.5, Magnesium Level 2.4, Pro-B-Type Natriuretic Peptide 894H Current Medications Medications (Trade) Dose Ordered Sig/Pascale Route PRN Reason Start Time Stop Time Status Last Admin Dose Admin Acetaminophen (Tylenol) 650 mg Q4H PRN ORAL Mild Pain (Pain Scale 1-3) 12/15/18 21:30 01/14/19 21:29 Acetaminophen/ Hydrocodone Bitart ([place] 10/325) 1 tab Q6HR ORAL 12/16/18 10:00 12/23/18 09:59 12/17/18 12:19 Atorvastatin Calcium (Lipitor) 40 mg BEDTIME ORAL 12/16/18 21:00 01/15/19 20:59 12/16/18 21:06 Dextrose (Dextrose 50%) 25 ml Q30M PRN IV Hypoglycemia 12/15/18 21:30 01/14/19 21:29 Dextrose (Dextrose 50%) 50 ml Q30M PRN IV Hypoglycemia 12/15/18 21:30 01/14/19 21:29 Enoxaparin Sodium (Lovenox) 40 mg Q24H SUBQ 12/15/18 22:00 01/14/19 21:59 12/16/18 21:07 Famotidine (Pepcid) 20 mg DAILY ORAL 12/16/18 09:00 01/15/19 08:59 12/17/18 09:33 Fentanyl (Duragesic) 1 patch Q72H TDERMAL 12/17/18 09:00 12/24/18 08:59 12/17/18 09:36 Furosemide (Lasix) 40 mg DAILY ORAL 12/16/18 09:00 01/15/19 08:59 12/17/18 09:34 Hydralazine HCl (Apresoline) 50 mg EVERY 8 HOURS ORAL 12/15/18 22:00 01/14/19 21:59 Ipratropium [place] (Atrovent) 500 mcg Q6HRT HHN 12/16/18 19:00 12/21/18 18:59 12/17/18 13:30 Losartan Potassium (Cozaar) 100 mg DAILY ORAL 12/16/18 09:00 01/15/19 08:59 12/17/18 09:33 Methadone HCl (Methadone HCl) 5 mg BID ORAL 12/16/18 09:00 12/23/18 08:59 12/17/18 09:33 Methylprednisolone Sodium Succinate (Solu-MEDROL) 40 mg EVERY 12 HOURS IVP 12/16/18 09:00 01/15/19 08:59 12/17/18 09:34 Miscellaneous Medication (fentaNYL Destruction) 1 ea Q72H MISC 12/17/18 09:00 01/16/19 08:59 12/17/18 09:00 Morphine Sulfate (Morphine Sulfate) 2 mg Q4H PRN IVP Moderate Pain (Pain Scale 4-6) 12/15/18 21:30 12/22/18 21:29 Morphine Sulfate (Morphine Sulfate) 4 mg Q4H PRN IVP Severe Pain (Pain Scale 7-10) 12/15/18 21:30 12/22/18 21:29 Naloxone HCl (Narcan) 0.1 mg PRN IV Sedation scale 3 or 4 12/16/18 18:00 Ondansetron HCl (Zofran) 4 mg Q6H PRN IVP Nausea & Vomiting 12/15/18 21:30 01/14/19 21:29 Piperacillin Sod/ Tazobactam Sod 3.375 gm/Dextrose 110 ml @ 27.5 mls/hr Q8H IVPB 12/16/18 18:00 12/23/18 17:59 12/17/18 10:52 Propafenone HCl (Rythmol) 150 mg Q8HR ORAL 12/16/18 18:31 01/15/19 18:30 12/17/18 14:11 Tiotropium [place] (Spiriva Inhaler) 2 puff DAILY INH 12/16/18 09:00 01/15/19 08:59 12/17/18 09:22 Naila Horton DO Dec 17, 2018 17:22
--- NOTE | 2018-12-17 19:15 | NUR ---
HAND-OFF: Report given to .BRITTNI MCNEILL.
--- NOTE | 2018-12-17 19:55 | NUR ---
NURSE NOTES: Received report from Alea Renteria RN. Patient is awake, sitting in chair, A/O x4. Sinus rhythm on seo assistant. No s/s of acute distress noted. Saturating well on 2L O2 via nasal cannula. Right AC 20g IV, intact and patent. Call light left within reach. Will continue to monitor.
[2018-12-17 20:00] VITALS: BP 137/70
--- NOTE | 2018-12-17 20:30 | Consultation ---
DATE OF CONSULTATION: 12/17/2018 CARDIOLOGY CONSULTATION CONSULTING PHYSICIAN: Catalina Azul M.D. REFERRING PHYSICIAN: Vince Fortune M.D. This consultation is done as a coverage for Dr. Arvind Terry. IDENTIFICATION DATA: This is a 63-year-old black male. REASON FOR ADMISSION: Severe shortness of breath. HISTORY OF PRESENT ILLNESS: The history is taken from discussion with the patient and reviewing his chart at [facility] and [facility]. The patient has severe COPD and he is essentially being admitted to multiple hospitals one after another barely spending time at home. Based on the records, he was admitted at [facility] every month and he was just discharged from [facility] on 14 of December and next day he was admitted to emergency department at [facility]. The patient has severe COPD and he is a current smoker. 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 At the time I spoke to the patient, he denies any cardiac symptoms, although he has chest pain, but that mostly from biopsy. He is very short of breath and he has mild wheezing. PAST MEDICAL HISTORY: In addition to above significant for hypertension, severe pulmonary hypertension, and COPD. He has paroxysmal atrial fibrillation and congestive heart failure. MEDICATIONS: His medications were all reviewed and noted that he is taking Rythmol, but he is not taking any blood thinners. I reviewed multiple consultations and admissions by Dr. Gearrd Braswell and it is mentioned everywhere that the patient is not on anticoagulation without specific reasons why. PAST SURGICAL HISTORY: Remarkable for VATS and for breast bone biopsy. REVIEW OF SYSTEMS: The patient has severe pain in his chest due to biopsy. He is in sitting position and he stated he sleeps like this for last six months and when he gets admitted to the hospital, he is not better. He has lower extremity edema. He denies any fever. He has nonproductive cough and he denies being in atrial fibrillation. He is not aware about atrial fibrillation at all. PHYSICAL EXAMINATION: GENERAL: Reveals middle-aged gentleman, who is sitting up in tripod position. VITAL SIGNS: His blood pressure 123/71 and his heart rate is 84. He saturating 100% on three liters of nasal cannula. He is afebrile. He looks chronically ill. HEENT: PERRLA, EOMI. NECK: Supple. Jugular venous pressure is very high up to 14 cm. He has normal carotid upstroke without bruit. LUNGS: He has very severely decreased breath sounds bilaterally. CHEST: Significant for tenderness over sternum due to biopsy and there is a healing lesion covered with a dressing. No erythema. BREASTS: No significant masses. No axillary lymphadenopathy. HEART: Regular, very distant with accentuated P2. ABDOMEN: Soft, slightly distended. Nontender. EXTREMITIES: Lower extremities, severe edema bilaterally without erythema. NEUROLOGIC: Cranial nerve II to XII unremarkable. Cerebellar signs unremarkable. LABORATORY AND DIAGNOSTIC DATA: His chest x-ray, which was done upon admission reveals bibasilar mild atelectasis infiltrate. His laboratory data significant for an admission white count 19.2 and today 10.5, hemoglobin 10.9 upon admission on , today is 9.6, his platelets are 386,000 upon admission and today 267,000. His chemistry remarkable for BUN 30 and creatinine 1.1. His glucose was 166. His proBNP was 894 and troponin was normal at 0.08. His EKG shows sinus rhythm with some LVH, nonspecific ST and T changes. The EKG quality is poor. I reviewed his telemetry and he had one episode of atrial fibrillation yesterday at 19 o'clock and the patient apparently was asymptomatic. I reviewed his echocardiogram, which was done at [facility] in September 2018 and this echocardiogram is abnormal and it reveals left ventricular function preserved at 75%, moderate diastolic dysfunction, pseudonormal left ventricular filling pattern, estimated pulmonary pressure 65 mmHg, and there are no wall motion abnormalities. IMPRESSION AND RECOMMENDATION: This patient has paroxysmal atrial fibrillation and he is taking propafenone. I was looking for Cardiology consultation at [place] and at [facility] and I did not find any for last two years. So, I do not know, who put him on propafenone and I do not know why this patient is not anticoagulated. Dr. Braswell mentioned in his note that the patient is not anticoagulated, but I am not sure what is the reason. The patient himself claims that he is very compliant with medications. I do not know whether the reason of not anticoagulated he was not compliant. That should be checked with primary care physician. From cardiac standpoint at this time, he is in sinus rhythm and he does not have acute decompensation of his heart failure. 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 I am not going to change his medications at this time and I believe that the issue about the patient being not anticoagulated is not acute, is not urgent, and should be addressed by his admitting physician. Thank you very much. Dr. Terry is going to follow this patient tomorrow. Catalina Azul M.D. DR: Pardeep JOB#: [id number] CC:
[2018-12-17] MEDS: Atorvastatin 20mg tab ORAL SCH (21:30)
[2018-12-17] MEDS: Enoxaparin 40mg Inj SUBQ SCH (21:35)
[2018-12-18] VITALS: BP 144/60
[2018-12-18] MEDS: Ipratropium 0.02% Inh Soln 2.5ml UD HHN SCH ×3 (00:57→13:00)
[2018-12-18] MEDS: Piperacillin/Tazobactam 3.375 GM in D5W 110 ML IVPB SCH ×2 (01:35→10:00)
[2018-12-18 04:00] VITALS: BP 137/68
[2018-12-18] MEDS: HydrALAZINE 50mg tab ORAL SCH (06:00)
[2018-12-18] MEDS: HYDROcodone/Acetamin 10/325 tab ORAL SCH ×3 (06:11→11:40)
[2018-12-18 06:46] LABS: HEMATOCRIT 30.8 % (42.0-52.0); HEMOGLOBIN 10.1 G/DL (14.2-18.0); MEAN CORPUSCULAR VOLUME 87 FL (80-99); PLATELET COUNT 271 K/UL (150-450); RED BLOOD COUNT 3.56 M/UL (4.70-6.10); WHITE BLOOD COUNT 11.1 K/UL (4.8-10.8)
--- NOTE | 2018-12-18 07:25 | NUR ---
HAND-OFF: Report given to Jeb Morillo RN.
[2018-12-18 07:29] LABS: ANION GAP 7 mmol/L (5-15); BLOOD UREA NITROGEN 30 mg/dL (7-18); CALCIUM 7.9 MG/DL (8.5-10.1); CARBON DIOXIDE 32 MMOL/L (21-32); CHLORIDE 103 MMOL/L (98-107); CREATININE 1.1 MG/DL (0.55-1.30); POTASSIUM 4.2 MMOL/L (3.5-5.1); SODIUM 142 MMOL/L (136-145)
--- NOTE | 2018-12-18 07:38 | NUR ---
NURSE NOTES: Report received from OSITO Ghotra. Pt received sitting , on NC at 2LPM. AOx4, eating breakfast. Afebrile and denied any discomfort at this time.RAC 20 gauge saline lock with no sign infiltration. Kept clean ,dry and comfortable.Call light within easy reach. Will continue to monitor.
[2018-12-18 08:00] VITALS: BP 140/81
--- NOTE | 2018-12-18 08:23 | NUR ---
NURSE NOTES: Left message to Dr Mercado regarding no lab since 12/15 and pt request to be discharge today or he will sign AMA. Awaiting call back and charge nurse made aware Addendum: 12/18/18 at 1011 by Janet Giron RN wrong pt
[2018-12-18] MEDS: Furosemide 40mg tab ORAL SCH (09:21)
[2018-12-18] MEDS: Losartan 50mg tab ORAL SCH (09:21)
[2018-12-18] MEDS: Solu-MEDROL 40mg Inj IVP SCH (09:21)
--- NOTE | 2018-12-18 09:22 | NUR ---
NURSE NOTES: Al due med given,unable to scan,IB band changed 3 times.Charge nurse made aware
--- NOTE | 2018-12-18 10:09 | NUR ---
NURSE NOTES: Pt sitting in chair no acute distress,will continue to monitor
--- NOTE | 2018-12-18 11:01 | NUR ---
NURSE NOTES: Pt refused the Zosyn to be connected as stated he want to be discharge today or either he will leave AMA. Charge nurse made aware and message left to Dr Braswell.
[2018-12-18 12:00] VITALS: BP 142/85
--- NOTE | 2018-12-18 12:10 | NUR ---
NURSE NOTES: Pt sitting on wheelchair,family visitor at bedside, remains restless at this time.Awaiting Dr Braswell visit
--- NOTE | 2018-12-18 12:35 | Discharge Summary ---
Discharge Summary Hospital Course Date of Admission Dec 15, 2018 at 18:11 Date of Discharge Admitting Diagnosis RESPIRATORY DISTRESS HPI Tanvir Mcgregor is a 63 year old male with history of chronic obstructive pulmonary disease, who is a 1 pack-a-day smoker, congestive heart failure, hypertension, atrial fibrillation, not on anticoagulation, pulmonary hypertension, diabetes type 2, left upper lobe adenocarcinoma status post VATS likely recurrence (biopsy of sternum --> adenocarcinoma) with recent hospitalizations at [facility] and [facility] [facility] for chronic obstructive pulmonary exacerbation. The patient was started on steroids, Nebulizer and BIPAP. He is able to ambulate now on 3L O2. He denies SOB. He is scheduled for radiation therapy for sternal mets Discharge Condition Upon Discharge: stable Discharge Disposition Patient was discharged to HOME Gerard Braswell MD Dec 18, 2018 12:35
--- NOTE | 2018-12-18 12:50 | Cardiology Report ---
APPROVED REPORT EKG Measurement Heart [id number] Sinus tachycardia Otherwise normal ECG
--- NOTE | 2018-12-18 13:08 | NUR ---
NURSE NOTES: Pt seen by Dr Braswell with ordr to d/c pt home. Awaiting clarification with [facility] Case management made aware of discharge and who will follow up with care.Pt easy irritable at this time and want to leave despite explaining risks and benefits and wait the confirmation of necessary equipment to be deliver. Family at bedside and pt remains restless.Charge nurse aware and awaiting feedback from case management
--- NOTE | 2018-12-18 13:42 | NUR ---
NURSE NOTES: Patient discharge home accompanied by a friend and a staff nurse. Taxi voucher given, all belongings including cell phone and knife sharpener return to patient.All clothing bead picker by friend.
--- NOTE | 2018-12-18 14:11 | NUR ---
TREE CUTTER NOTES PT IS CURRENTLY ON SERVICES WITH [facility]. SPOKE WITH DR HELMS OFFICE VERIFIED HH SERVICE AND OXYGEN COMPANY. PER [facility] 4 TANKS OF OXYGEN WAS DELIVERED ON TUESDAY. PT TO CONTINUE WITH [facility]. PT MADE AWARE. ENCOURAGED PT TO USE [employer] FOR DOCTOR APPOINTMENTS AND TO USE CONCENTRATOR WHILE IN THE HOUSE. PT VERBALIZED UNDERSTANDING. INQUIRY FAXED TO [facility]. [facility] [phone]
== END 2018-12-18 13:30 | disposition home or self-care (01) | DRG 190 ==
LOC: EDBD 17:37 → EDBEDREQ 17:47 → EMR 18:05 → 2W 18:11 → EDBEDREQ 18:49
PROC: 5A09457 Assistance with Respiratory Ventilation, 24-96 Consecutive Hours, Continuous Positive Airway Pressure (ICD-10-PCS; principal; 2018-12-15)
DX: J44.1 Chronic obstructive pulmonary disease with (acute) exacerbation (principal); J96.00 Acute respiratory failure, unspecified whether with hypoxia or hypercapnia; C34.90 Malignant neoplasm of unspecified part of unspecified bronchus or lung; C79.51 Secondary malignant neoplasm of bone; I50.32 Chronic diastolic (congestive) heart failure; E11.9 Type 2 diabetes mellitus without complications; F17.200 Nicotine dependence, unspecified, uncomplicated; F32.9 Major depressive disorder, single episode, unspecified; I11.0 Hypertensive heart disease with heart failure; I48.0 Paroxysmal atrial fibrillation; I27.20 Pulmonary hypertension, unspecified; Z88.8 Allergy status to other drugs, medicaments and biological substances; G47.33 Obstructive sleep apnea (adult) (pediatric)
CPT/HCPCS: 36415; 36600; 71045; 80048; 80053; 81003; 82550; 82553; 82803; 83605; 83735; 83880; 84484; 85007; 85025; 87040; 87081; 93005; 94640; 94660; 94664; 94760; 96365; 96368; 96375; 99291; J7620